=== PATIENT | female | born 1960 | race Caucasian/White ===

== ENCOUNTER 2017-12-14 16:25 | Inpatient (IN) | payer OTHER ==
[~2017-12-14] VITALS: Ht 162.6 cm; Wt 64.0 kg
[2017-12-14] MEDS ORDERED: METHYLPREDNISOLONE SOD SUCC 125 MG/2ML VIAL IV ONE (17:00)
[2017-12-14] MEDS ORDERED: ALBUTEROL/IPRATROPIUM 3 ML NEB NEB ONE (17:00)
[2017-12-14] MEDS ORDERED: IPRATROPIUM BROMIDE 0.02% 2.5 ML NEB NEB ONE (17:00)
[2017-12-14] MEDS ORDERED: LORAZEPAM INJ 2 MG/ML VIAL IV ONE (17:00)
[2017-12-14] MEDS ORDERED: ALBUTEROL SULF 0.083% NEB SOLN 3 ML NEB ONE (17:09)
[2017-12-14 17:10] LABS: BASOPHILS # (AUTO) 0.1 (0.0-0.1); BASOPHILS % 1.3 % (0.0-1.0); EOSINOPHILS # (AUTO) 0.4 (0.0-0.4); EOSINOPHILS % 6.9 % (0.0-6.0); HEMATOCRIT 34.8 % (34.2-44.1); LYMPHOCYTES # (AUTO) 2.4 (1.0-3.2); LYMPHOCYTES % 38.1 % (18.0-39.1); MEAN CORPUSCULAR HEMOGLOBIN 28.9 pg (28-32); MEAN CORPUSCULAR HGB CONC 31.6 g/dL (31-35); MEAN CORPUSCULAR VOLUME 91.3 fL (81-99); MONOCYTES # (AUTO) 0.7 (0.2-0.8); MONOCYTES % 11.9 % (4.4-11.3); NEUTROPHILS # (AUTO) 2.6 (2.1-6.9); NEUTROPHILS % 41.5 % (38.7-80.0); PLATELET COUNT 311 x10e3/uL (140-360); RED BLOOD COUNT 3.81 x10e6/uL (3.6-5.1); RED CELL DISTRIBUTION WIDTH 13.7 % (11.7-14.4)
[2017-12-14 17:17] LABS: INR 0.82; PROTHROMBIN TIME 11.7 seconds (11.9-14.5)
[2017-12-14 17:18] LABS: PARTIAL THROMBOPLASTIN TIME 26.3 seconds (23.8-35.5)
[2017-12-14 17:21] LABS: ABG HCO3 30 mmol/L (23-28); ABG PCO2 51 mmHg (41-51); ABG PH 7.38 (7.31-7.41); ABG PO2 103 mmHg (80-105)
[2017-12-14 17:25] LABS: ALANINE AMINOTRANSFERASE 8 IU/L (0-55); ALBUMIN 3.5 g/dL (3.5-5.0); ALBUMIN/GLOBULIN RATIO 1.2 (0.8-2.0); ALKALINE PHOSPHATASE 51 IU/L (40-150); ANION GAP 10.6 mmol/L (8-16); BLOOD UREA NITROGEN 14 mg/dL (7-26); BUN/CREATININE RATIO 20 (6-25); CALCIUM 9.1 mg/dL (8.4-10.2); CARBON DIOXIDE 28 mmol/L (22-29); CHLORIDE 106 mmol/L (98-107); CREATINE KINASE 46 IU/L (29-168); CREATININE, SERUM 0.69 mg/dL (0.57-1.11); EST GLOMERULAR FILTRATION RATE > 60 ML/MIN (60-); GLUCOSE 121 mg/dL (74-118); POTASSIUM 3.6 mmol/L (3.5-5.1); SODIUM 141 mmol/L (136-145)
[2017-12-14] MEDS ORDERED: SODIUM CHLORIDE FLUSH 10 ML SYR INJ PRN (17:30)
--- NOTE | 2017-12-14 18:53 | Diagnostic Imaging Report ---
PROCEDURE: A single AP view of the chest. COMPARISON: None. INDICATIONS: COPD AND SHORTNESS OF BREATH FINDINGS: Lines/tubes: None. Lungs: The lungs are hyperinflated. Minimal left lower lung field haziness. There is no evidence of pneumonia or pulmonary edema. Irregular density overlying left mid to lower lung field may represent calcified pleural plaque or calcified granuloma or soft tissue calcification. Pleura: There is no pleural effusion or pneumothorax. Heart and mediastinum: The heart and the mediastinum are unremarkable. Bones: No acute bony abnormality. IMPRESSION: Minimal left basilar hazy opacification, likely due to overlying soft tissue attenuation. Developing pneumonia cannot be entirely excluded in the appropriate clinical setting. Hyperinflated lungs with suggestion of COPD. Dictated by: Escobar Ferrara M.D. on 12/14/2017 at 19:02 Electronically approved by: Escobar Ferrara M.D. on 12/14/2017 at 19:02
[2017-12-14] MEDS: IPRATROPIUM BROMIDE 0.02% 2.5 ML NEB NEB SCH ×2 (19:00→23:30)
[2017-12-14] MEDS: ALBUTEROL SULF 0.083% NEB SOLN 3 ML NEB NEB SCH ×2 (19:00→23:30)
[2017-12-14] MEDS: AZITHROMYCIN 500MG/NS 250 ML 250 ML IV SCH (20:03)
[2017-12-15] MEDS: LORAZEPAM 1 MG TAB PO PRN (01:58)
[2017-12-15] MEDS: METHYLPREDNISOLONE SOD SUCC 40 MG/ML VIAL IV SCH ×5 (01:59→18:33)
[2017-12-15 04:45] LABS: BASOPHILS % 0.1 % (0.0-1.0); HEMATOCRIT 35.7 % (34.2-44.1); HEMOGLOBIN 11.1 g/dL (12.0-16.0); LYMPHOCYTES # (AUTO) 0.8 (1.0-3.2); MEAN CORPUSCULAR HEMOGLOBIN 28.6 pg (28-32); MEAN CORPUSCULAR HGB CONC 31.1 g/dL (31-35); MONOCYTES # (AUTO) 0.1 (0.2-0.8); MONOCYTES % 0.9 % (4.4-11.3); NEUTROPHILS % 87.6 % (38.7-80.0); PLATELET COUNT 314 x10e3/uL (140-360); RED BLOOD COUNT 3.88 x10e6/uL (3.6-5.1); RED CELL DISTRIBUTION WIDTH 13.4 % (11.7-14.4)
[2017-12-15 05:04] LABS: ANION GAP 14.2 mmol/L (8-16); BLOOD UREA NITROGEN 13 mg/dL (7-26); BUN/CREATININE RATIO 21 (6-25); CALCIUM 9.1 mg/dL (8.4-10.2); CARBON DIOXIDE 25 mmol/L (22-29); CHLORIDE 107 mmol/L (98-107); CREATINE KINASE 42 IU/L (29-168); CREATININE, SERUM 0.63 mg/dL (0.57-1.11); EST GLOMERULAR FILTRATION RATE > 60 ML/MIN (60-); GLUCOSE 138 mg/dL (74-118); POTASSIUM 4.2 mmol/L (3.5-5.1); SODIUM 142 mmol/L (136-145)
[2017-12-15] MEDS: ALBUTEROL SULF 0.083% NEB SOLN 3 ML NEB NEB SCH (05:10)
[2017-12-15] MEDS: IPRATROPIUM BROMIDE 0.02% 2.5 ML NEB NEB SCH (05:10)
[2017-12-15] MEDS ORDERED: SODIUM CHLORIDE 0.9% 1000ML 1,000 ML IV SCH (08:15)
[2017-12-15] MEDS ORDERED: CEFTRIAXONE SOD 1 GM/NS 50 ML 50 ML IV SCH (08:15)
[2017-12-15] MEDS: ALBUTEROL/IPRATROPIUM 3 ML NEB NEB SCH ×4 (09:25→21:55)
[2017-12-15] MEDS: METOPROLOL TARTRATE 25 MG TAB PO SCH ×2 (10:15→22:12)
[2017-12-15] MEDS: AMLODIPINE BESYLATE 10 MG TAB PO SCH (10:15)
[2017-12-15] MEDS: GUAIFENESIN 600MG/DEXTROMETHORPHAN 30MG TABSR PO SCH ×3 (10:15→18:33)
[2017-12-15] MEDS: CEFTRIAXONE SOD 1 GM VIAL IV SCH ×2 (10:20→22:12)
[2017-12-15 12:08] VITALS: BP 115/73
[2017-12-15 12:29] VITALS: BP 137/77
[2017-12-15 12:43] LABS: CREATINE KINASE MB 1.1 ng/mL (0.00-5.00)
[2017-12-15] MEDS: TRAMADOL HCL 50 MG TAB PO PRN (14:33)
[2017-12-15] MEDS: HYDROCODONE/APAP 5MG-325MG TAB PO PRN (16:05)
[2017-12-15 16:38] VITALS: BP 119/69
[2017-12-15] MEDS: FLUTICASONE PROPIONATE NASAL SPRAY NS SCH (17:01)
[2017-12-15] MEDS: AZITHROMYCIN 500MG/NS 250 ML 250 ML IV SCH (18:33)
--- NOTE | 2017-12-15 18:34 | History and Physical ---
PRIMARY CARE PROVIDER: Dr. Fernando Anna. CHIEF COMPLAINT: Shortness of breath. HISTORY OF PRESENT ILLNESS: Ms. Erickson is a 57-year-old lady with COPD who presents with 2 to 3 days of a hacking nonproductive cough, worsening shortness of breath and wheezing with worsening dyspnea with exertion. REVIEW OF SYSTEMS: She denies fever, chills or weight loss. She denies sinus congestion or sore throat. She denies chest pain or palpitation. She has shortness of breath, nonproductive cough and wheezing as noted. She denies abdominal pain, nausea, vomiting or diarrhea or melena. She denies dysuria or flank pain. She denies rash or pruritus. She denies joint pain or swelling. She denies bleeding or bruising. She denies headache, vertigo or loss of consciousness. She denies depression, agitation, homicidal or suicidal ideation. PAST MEDICAL HISTORY: Significant for hypertension, COPD and hyperlipidemia. She denies any history of heart disease. MEDICATIONS: Metoprolol lisinopril/hydrochlorothiazide and Lipitor along with Breo, Spiriva and nebulized albuterol Atrovent, DuoNeb by nebulizer at home and she uses a home O2. PAST SURGICAL HISTORY: She denies any surgical history. SOCIAL HISTORY: She quit smoking 8 years ago and she has a stated allergy to morphine and some unknown antibiotic. FAMILY HISTORY: Significant for hypertension. SOCIAL HISTORY: Patient is . Lithuanian is her primary language. She does not smoke, drink or use illegal drugs and she is generally independently functioning. PHYSICAL EXAM: PSYCHIATRIC: She is alert and oriented times 3 with normal mood and affect. CONSTITUTIONAL: She has a normal body habitus. Is in no acute distress. VITAL SIGNS: Blood pressure 119/69. Pulse 97 and regular. Respiratory rate 18. O2 sat 96%. Temperature 96.1. Her initial blood pressure on presentation 187/91 and her initial heart rate was 104. HEENT: Head is atraumatic. Eyes are anicteric with clear conjunctivae. Ears and nares are without erythema or discharge. Oropharynx is clear. NECK: Is supple with no mass or thyromegaly. LYMPHATIC SYSTEM: She has no palpable cervical, axillary or inguinal adenopathy. CARDIOVASCULAR: Her heart has a regular rate and rhythm without murmur or extra heart sounds. She has no peripheral edema. She has no carotid bruit. She has weak dorsal pedal pulses. RESPIRATORY: Lungs reveal markedly diminished breath sounds with expiratory wheezing and nonproductive cough and some mild to moderate respiratory distress. The patient is on BiPAP initially. GASTROINTESTINAL: Abdomen is soft without organomegaly, masses or tenderness. Normal bowel sounds present. CUTANEOUS: Her skin is warm and dry to touch with no rash or skin breakdown. MUSCULOSKELETAL: Joints are in normal alignment without erythema or swelling. No calf tenderness. NEUROLOGIC: Exam is nonfocal with intact cranial nerves and no motor or sensory deficits. DIAGNOSTIC STUDIES: Chest x-ray shows COPD changes but no acute infiltrate. Flu screen is negative. ABG shows a pH of 7.38, a PCO2 of 51, a PO2 of 103 and that is on BiPAP with 50% FIO2. Her troponin 0.012, 0.009, 0.002. Her BNP 14.8. Chemistry shows normal electrolytes. CO2 28. Creatinine 0.69. BUN 14 for a normal GFR. Glucose 121. Calcium 9.1. Transaminases, bilirubin and alkaline phos are normal. CBC shows a white count of 6.24 with 42% neutrophils, 38% lymphocytes, 12% monocytes. Hemoglobin 11.0, hematocrit 34.8 and platelet count 311,000. IMPRESSION AND PLAN: 1. Acute on chronic respiratory failure. Patient requiring BiPAP initially and is O2 dependent at home. 2. Acute exacerbation of chronic obstructive pulmonary disease. The patient will get oxygen and aggressive nebulizer treatments, IV Solu-Medrol, IV Zithromax and Rocephin and Mucinex for expectoration. 3. Hypertension. Patient will be continued on metoprolol. She has been started on Norvasc. She did not know what she was taking on review of her office records. She was on lisinopril/ hydrochlorothiazide in the past. Her blood pressure appears well controlled on the Norvasc. Will leave her on that for now. 4. For prophylaxis the patient will be using SCDs for DVT prophylaxis and Protonix for GI prophylaxis. Job#: [id number]
[2017-12-15] MEDS: ONDANSETRON HCL INJ 2 MG/ML VIAL IV PRN (19:36)
[2017-12-15 20:04] VITALS: BP 110/62
[2017-12-15 21:53] VITALS: BP 110/62
[2017-12-15 23:43] VITALS: BP 90/54
[2017-12-16] MEDS: METHYLPREDNISOLONE SOD SUCC 40 MG/ML VIAL IV SCH ×4 (00:09→17:14)
[2017-12-16] MEDS: GUAIFENESIN 600MG/DEXTROMETHORPHAN 30MG TABSR PO SCH ×4 (00:09→17:14)
[2017-12-16] MEDS: TRAMADOL HCL 50 MG TAB PO PRN (03:47)
[2017-12-16 04:19] VITALS: BP 124/74
[2017-12-16] MEDS: HYDROCODONE/APAP 5MG-325MG TAB PO PRN ×2 (06:17→12:58)
[2017-12-16 06:27] LABS: BASOPHILS % 0.2 % (0.0-1.0); HEMATOCRIT 29.9 % (34.2-44.1); HEMOGLOBIN 9.5 g/dL (12.0-16.0); LYMPHOCYTES # (AUTO) 0.9 (1.0-3.2); LYMPHOCYTES % 8.2 % (18.0-39.1); MEAN CORPUSCULAR HGB CONC 31.8 g/dL (31-35); MEAN CORPUSCULAR VOLUME 91.2 fL (81-99); MONOCYTES # (AUTO) 0.3 (0.2-0.8); MONOCYTES % 2.3 % (4.4-11.3); NEUTROPHILS # (AUTO) 10.1 (2.1-6.9); NEUTROPHILS % 88.5 % (38.7-80.0); PLATELET COUNT 278 x10e3/uL (140-360); RED BLOOD COUNT 3.28 x10e6/uL (3.6-5.1); RED CELL DISTRIBUTION WIDTH 13.5 % (11.7-14.4)
[2017-12-16 06:50] LABS: ANION GAP 7.8 mmol/L (8-16); BLOOD UREA NITROGEN 19 mg/dL (7-26); BUN/CREATININE RATIO 29 (6-25); CALCIUM 8.8 mg/dL (8.4-10.2); CARBON DIOXIDE 28 mmol/L (22-29); CHLORIDE 104 mmol/L (98-107); CREATININE, SERUM 0.66 mg/dL (0.57-1.11); EST GLOMERULAR FILTRATION RATE > 60 ML/MIN (60-); GLUCOSE 131 mg/dL (74-118); MAGNESIUM 1.8 MG/DL (1.3-2.1); POTASSIUM 3.8 mmol/L (3.5-5.1); SODIUM 136 mmol/L (136-145)
[2017-12-16 07:05] LABS: THYROID STIMULATING HORMONE 0.122 uIU/mL (0.350-4.940)
[2017-12-16 07:10] VITALS: BP 135/74
[2017-12-16] MEDS: PANTOPRAZOLE SOD 40 MG TABEC PO SCH (07:37)
[2017-12-16] MEDS: ALBUTEROL/IPRATROPIUM 3 ML NEB NEB SCH ×4 (08:30→23:35)
[2017-12-16] MEDS: METOPROLOL TARTRATE 25 MG TAB PO SCH ×2 (08:37→20:52)
[2017-12-16] MEDS: CEFTRIAXONE SOD 1 GM VIAL IV SCH ×2 (08:37→20:51)
[2017-12-16] MEDS: AMLODIPINE BESYLATE 10 MG TAB PO SCH (08:37)
[2017-12-16] MEDS: FLUTICASONE PROPIONATE NASAL SPRAY NS SCH ×2 (09:30→16:17)
[2017-12-16 11:17] VITALS: BP 114/60
[2017-12-16 15:47] VITALS: BP 112/62
[2017-12-16] MEDS: AZITHROMYCIN 500MG/NS 250 ML 250 ML IV SCH (17:14)
[2017-12-16 20:00] VITALS: BP 111/66
[2017-12-16] MEDS: LORAZEPAM 1 MG TAB PO PRN (20:36)
[2017-12-17] VITALS: BP 102/65
[2017-12-17] MEDS: METHYLPREDNISOLONE SOD SUCC 40 MG/ML VIAL IV SCH ×4 (00:08→20:23)
[2017-12-17] MEDS: GUAIFENESIN 600MG/DEXTROMETHORPHAN 30MG TABSR PO SCH ×4 (00:08→16:43)
[2017-12-17] MEDS: ALBUTEROL/IPRATROPIUM 3 ML NEB NEB SCH ×6 (03:15→23:17)
[2017-12-17 04:00] VITALS: BP 109/67
[2017-12-17] MEDS: HYDROCODONE/APAP 5MG-325MG TAB PO PRN ×2 (06:24→15:55)
[2017-12-17 06:27] LABS: BASOPHILS % 0.1 % (0.0-1.0); HEMATOCRIT 31.9 % (34.2-44.1); HEMOGLOBIN 10.1 g/dL (12.0-16.0); LYMPHOCYTES % 5.9 % (18.0-39.1); MEAN CORPUSCULAR HEMOGLOBIN 29.3 pg (28-32); MEAN CORPUSCULAR HGB CONC 31.7 g/dL (31-35); MEAN CORPUSCULAR VOLUME 92.5 fL (81-99); MONOCYTES # (AUTO) 0.4 (0.2-0.8); MONOCYTES % 2.2 % (4.4-11.3); NEUTROPHILS # (AUTO) 15.1 (2.1-6.9); NEUTROPHILS % 90.7 % (38.7-80.0); PLATELET COUNT 306 x10e3/uL (140-360); RED BLOOD COUNT 3.45 x10e6/uL (3.6-5.1); RED CELL DISTRIBUTION WIDTH 13.7 % (11.7-14.4)
[2017-12-17 06:44] LABS: ANION GAP 14.8 mmol/L (8-16); BLOOD UREA NITROGEN 21 mg/dL (7-26); BUN/CREATININE RATIO 36 (6-25); CARBON DIOXIDE 27 mmol/L (22-29); CHLORIDE 107 mmol/L (98-107); CREATININE, SERUM 0.59 mg/dL (0.57-1.11); EST GLOMERULAR FILTRATION RATE > 60 ML/MIN (60-); GLUCOSE 131 mg/dL (74-118); POTASSIUM 3.8 mmol/L (3.5-5.1); SODIUM 145 mmol/L (136-145)
[2017-12-17] MEDS: PANTOPRAZOLE SOD 40 MG TABEC PO SCH (07:45)
[2017-12-17] MEDS: LORAZEPAM 1 MG TAB PO PRN (07:45)
[2017-12-17 08:00] VITALS: BP 162/94
[2017-12-17 09:12] VITALS: BP 162/94
[2017-12-17] MEDS: CEFTRIAXONE SOD 1 GM VIAL IV SCH ×2 (09:30→20:22)
[2017-12-17] MEDS: METOPROLOL TARTRATE 25 MG TAB PO SCH ×2 (09:30→20:16)
[2017-12-17] MEDS: AMLODIPINE BESYLATE 10 MG TAB PO SCH (09:31)
[2017-12-17] MEDS: FLUTICASONE PROPIONATE NASAL SPRAY NS SCH ×2 (10:26→16:43)
[2017-12-17 16:00] VITALS: BP 118/72
[2017-12-17] MEDS: AZITHROMYCIN 500MG/NS 250 ML 250 ML IV SCH (16:43)
[2017-12-17] MEDS: DOCUSATE SODIUM 100 MG CAP PO SCH (16:43)
[2017-12-17] MEDS: ONDANSETRON HCL INJ 2 MG/ML VIAL IV PRN (17:14)
[2017-12-17] MEDS: LORAZEPAM INJ 2 MG/ML VIAL IV PRN (19:45)
[2017-12-17 20:10] VITALS: BP 108/70
[2017-12-17] MEDS ORDERED: METOPROLOL TARTRATE 25 MG TAB PO SCH ×2 (21:00)
[2017-12-18 00:05] VITALS: BP 107/63
[2017-12-18] MEDS: GUAIFENESIN 600MG/DEXTROMETHORPHAN 30MG TABSR PO SCH ×5 (00:05→23:46)
[2017-12-18] MEDS: HYDROCODONE/APAP 5MG-325MG TAB PO PRN ×3 (02:21→23:43)
[2017-12-18] MEDS: ALBUTEROL/IPRATROPIUM 3 ML NEB NEB SCH ×6 (03:08→23:27)
[2017-12-18 04:30] VITALS: BP 117/75
[2017-12-18] MEDS: PANTOPRAZOLE SOD 40 MG TABEC PO SCH (06:32)
[2017-12-18 06:48] LABS: BASOPHILS % 0.1 % (0.0-1.0); HEMOGLOBIN 9.7 g/dL (12.0-16.0); LYMPHOCYTES # (AUTO) 0.9 (1.0-3.2); LYMPHOCYTES % 6.7 % (18.0-39.1); MEAN CORPUSCULAR HGB CONC 31.3 g/dL (31-35); MEAN CORPUSCULAR VOLUME 92.5 fL (81-99); MONOCYTES # (AUTO) 0.6 (0.2-0.8); MONOCYTES % 4.5 % (4.4-11.3); NEUTROPHILS # (AUTO) 12.1 (2.1-6.9); NEUTROPHILS % 87.8 % (38.7-80.0); PLATELET COUNT 279 x10e3/uL (140-360); RED BLOOD COUNT 3.35 x10e6/uL (3.6-5.1); RED CELL DISTRIBUTION WIDTH 13.6 % (11.7-14.4)
[2017-12-18 07:18] LABS: ANION GAP 11.9 mmol/L (8-16); BLOOD UREA NITROGEN 19 mg/dL (7-26); BUN/CREATININE RATIO 33 (6-25); CARBON DIOXIDE 29 mmol/L (22-29); CHLORIDE 108 mmol/L (98-107); CREATININE, SERUM 0.57 mg/dL (0.57-1.11); EST GLOMERULAR FILTRATION RATE > 60 ML/MIN (60-); GLUCOSE 132 mg/dL (74-118); POTASSIUM 3.9 mmol/L (3.5-5.1); SODIUM 145 mmol/L (136-145)
[2017-12-18 08:00] VITALS: BP 102/65
[2017-12-18] MEDS: LORAZEPAM INJ 2 MG/ML VIAL IV PRN ×3 (08:30→21:37)
[2017-12-18] MEDS: CEFTRIAXONE SOD 1 GM VIAL IV SCH ×2 (09:00→20:58)
[2017-12-18] MEDS: METOPROLOL TARTRATE 25 MG TAB PO SCH ×2 (09:00→20:59)
[2017-12-18] MEDS: FLUTICASONE PROPIONATE NASAL SPRAY NS SCH ×2 (09:00→17:00)
[2017-12-18] MEDS: METHYLPREDNISOLONE SOD SUCC 40 MG/ML VIAL IV SCH ×2 (09:00→20:59)
[2017-12-18] MEDS: DOCUSATE SODIUM 100 MG CAP PO SCH ×2 (09:00→17:00)
[2017-12-18 12:00] VITALS: BP 155/86
[2017-12-18] MEDS: AMLODIPINE BESYLATE 10 MG TAB PO SCH (12:08)
[2017-12-18] MEDS: AZITHROMYCIN 500MG/NS 250 ML 250 ML IV SCH (18:07)
[2017-12-18] MEDS: ONDANSETRON HCL INJ 2 MG/ML VIAL IV PRN (18:40)
[2017-12-18 20:04] VITALS: BP 112/72
[2017-12-19 00:02] VITALS: BP 112/72
[2017-12-19] MEDS: LORAZEPAM INJ 2 MG/ML VIAL IV PRN ×2 (03:07→08:45)
[2017-12-19] MEDS: ALBUTEROL/IPRATROPIUM 3 ML NEB NEB SCH ×6 (03:57→22:40)
[2017-12-19 04:00] VITALS: BP 116/65
[2017-12-19] MEDS: GUAIFENESIN 600MG/DEXTROMETHORPHAN 30MG TABSR PO SCH ×3 (05:27→17:09)
[2017-12-19 08:00] VITALS: BP 126/73
[2017-12-19] MEDS: FLUTICASONE PROPIONATE NASAL SPRAY NS SCH ×2 (08:30→16:36)
[2017-12-19] MEDS: METHYLPREDNISOLONE SOD SUCC 40 MG/ML VIAL IV SCH ×2 (08:30→20:51)
[2017-12-19] MEDS: METOPROLOL TARTRATE 25 MG TAB PO SCH ×2 (08:30→20:52)
[2017-12-19] MEDS: AMLODIPINE BESYLATE 10 MG TAB PO SCH (08:30)
[2017-12-19] MEDS: PANTOPRAZOLE SOD 40 MG TABEC PO SCH (08:30)
[2017-12-19] MEDS: CEFTRIAXONE SOD 1 GM VIAL IV SCH (08:30)
[2017-12-19] MEDS: DOCUSATE SODIUM 100 MG CAP PO SCH ×2 (08:30→16:36)
[2017-12-19] MEDS: HYDROCODONE/APAP 5MG-325MG TAB PO PRN ×2 (11:21→19:00)
[2017-12-19 12:00] VITALS: BP 139/80
[2017-12-19 16:00] VITALS: BP 115/59
[2017-12-19] MEDS: LORAZEPAM 0.5 MG TAB PO PRN (16:06)
[2017-12-19] MEDS: DOXYCYCLINE HYCLATE TABLET 100 MG TAB PO SCH (16:36)
--- NOTE | 2017-12-19 16:37 | Consultation ---
DATE OF CONSULTATION: PSYCHIATRIC CONSULT REASON FOR CONSULTATION: Treatment and evaluation of the patient's mood and anxiety. HISTORY OF PRESENT ILLNESS: Patient is a 57-year-old female who was admitted to [facility] because of COPD exacerbation. Psychiatric consult is called to evaluate the patient's mood and anxiety. Upon evaluation today, the patient is found to be alert, awake, and oriented to situation. She is isolated and withdrawn. She has psychomotor retardation. She states that she has been feeling increasingly depressed and anxious because of her ongoing medical health issues. She is stressed because she is not able to do things that she used to do before. She sometimes feels hopeless and helpless. She is not able to sleep and eat very well. She denies any hallucinations and/or suicidal ideation. PAST PSYCHIATRIC HISTORY: The patient has been treated by a psychiatrist in the past when she lost her son. She has attempted suicide at least once in the past. She denies drinking alcohol and denies abusing any recreational drugs. FAMILY HISTORY: Patient denies any family history of psychiatric illness. SOCIAL HISTORY: Patient states that she lives with her boyfriend. CURRENT LABS: WBC 13.81, hemoglobin 9.7, hematocrit 31, and platelets 279,000. Sodium 145, potassium 3.9, chloride 108, carbon dioxide 29, BUN 19, creatinine 0.5. TSH 0.12. CURRENT MEDICATIONS 1. Amlodipine. 2. Colace. 3. Doxycycline. 4. P.r.n. [place]. 5. P.r.n. Ativan. 6. Protonix. 7. P.r.n. tramadol. MENTAL STATUS EXAMINATION GENERAL: The patient is a middle-aged female who appears older than her stated age. She is alert, awake and oriented to place, person and situation. Her mood is depressed and dysphoric with appropriate affect. She denies any suicidal or homicidal ideation at present. She denies any abnormal perceptions at present. No delusions are elicited. Her thought process is goal directed. She is alert, awake and oriented to place, person and situation. Insight and judgment are fair. IMPRESSION 1. Revere I: Major depressive disorder, recurrent and moderate 2. Revere II: Deferred. 3. Revere III: As per medical history. 4. Revere IV: Modified is 45. RECOMMENDATIONS: Based on this clinical assessment, the patient appears to be depressed and anxious. She is not sleeping and eating. Following recommendations for now: 1. Add Remeron 15 mg p.o. at bedtime. 2. Add Ativan 0.5 mg p.o. q.6 h. p.r.n. for anxiety. 3. Supportive therapy. 4. We will continue to follow this patient during her inpatient stay for management of her psychiatric symptoms. Thank you very much for this consult. Job#: [id number] ALEX
[2017-12-19 20:00] VITALS: BP 117/69
[2017-12-19] MEDS: MIRTAZAPINE 15 MG TAB PO SCH (20:53)
[2017-12-20] VITALS: BP 135/70
[2017-12-20] MEDS: GUAIFENESIN 600MG/DEXTROMETHORPHAN 30MG TABSR PO SCH ×5 (00:11→23:51)
[2017-12-20] MEDS: ALBUTEROL/IPRATROPIUM 3 ML NEB NEB SCH ×6 (02:30→23:52)
[2017-12-20 04:00] VITALS: BP 130/61
[2017-12-20] MEDS: PANTOPRAZOLE SOD 40 MG TABEC PO SCH (05:37)
[2017-12-20 06:09] LABS: BASOPHILS % 0.4 % (0.0-1.0); HEMATOCRIT 33.7 % (34.2-44.1); HEMOGLOBIN 10.9 g/dL (12.0-16.0); LYMPHOCYTES # (AUTO) 1.6 (1.0-3.2); MEAN CORPUSCULAR HEMOGLOBIN 29.1 pg (28-32); MEAN CORPUSCULAR HGB CONC 32.3 g/dL (31-35); MEAN CORPUSCULAR VOLUME 90.1 fL (81-99); MONOCYTES # (AUTO) 0.8 (0.2-0.8); NEUTROPHILS # (AUTO) 8.6 (2.1-6.9); NEUTROPHILS % 76.9 % (38.7-80.0); PLATELET COUNT 260 x10e3/uL (140-360); RED BLOOD COUNT 3.74 x10e6/uL (3.6-5.1)
[2017-12-20 06:25] LABS: BLOOD UREA NITROGEN 18 mg/dL (7-26); BUN/CREATININE RATIO 32 (6-25); CALCIUM 8.9 mg/dL (8.4-10.2); CARBON DIOXIDE 29 mmol/L (22-29); CHLORIDE 106 mmol/L (98-107); CREATININE, SERUM 0.57 mg/dL (0.57-1.11); EST GLOMERULAR FILTRATION RATE > 60 ML/MIN (60-); GLUCOSE 111 mg/dL (74-118); SODIUM 141 mmol/L (136-145)
[2017-12-20 08:00] VITALS: BP 162/81
[2017-12-20] MEDS: HYDROCODONE/APAP 5MG-325MG TAB PO PRN ×2 (08:14→14:05)
--- NOTE | 2017-12-20 08:19 | Diagnostic Imaging Report ---
EXAMINATION: CHEST SINGLE (PORTABLE) INDICATION: \S\SOB \[id number] \S\0730 COMPARISON: 12/14/2017 FINDINGS: AP view TUBES and LINES: None. LUNGS: Lungs are well inflated. Lungs are clear. There is no evidence of pneumonia or pulmonary edema. Unchanged left midlung hyperdensity. PLEURA: No pleural effusion or pneumothorax. HEART AND MEDIASTINUM: The cardiomediastinal silhouette is unremarkable. BONES AND SOFT TISSUES: No acute osseous lesion. Soft tissues are unremarkable. UPPER ABDOMEN: No free air under the diaphragm. IMPRESSION: No acute thoracic abnormality. Unchanged left midlung hyperdensity which could be calcified pleural plaque, soft tissue calcification, or calcified granuloma. Signed by: Dr. Escobar Ferrara MD on 12/20/2017 8:16 AM
[2017-12-20] MEDS: FLUTICASONE PROPIONATE NASAL SPRAY NS SCH ×2 (09:00→17:01)
[2017-12-20] MEDS: DOXYCYCLINE HYCLATE TABLET 100 MG TAB PO SCH ×2 (09:00→17:01)
[2017-12-20] MEDS: METOPROLOL TARTRATE 25 MG TAB PO SCH ×2 (09:00→21:35)
[2017-12-20] MEDS: DOCUSATE SODIUM 100 MG CAP PO SCH ×2 (09:00→17:00)
[2017-12-20] MEDS: AMLODIPINE BESYLATE 10 MG TAB PO SCH (09:00)
[2017-12-20] MEDS: METHYLPREDNISOLONE SOD SUCC 40 MG/ML VIAL IV SCH ×2 (09:00→19:52)
[2017-12-20 12:00] VITALS: BP 150/81
[2017-12-20 16:00] VITALS: BP 122/66
[2017-12-20] MEDS: ONDANSETRON HCL INJ 2 MG/ML VIAL IV PRN (19:52)
[2017-12-20] MEDS: MIRTAZAPINE 15 MG TAB PO SCH (19:52)
[2017-12-20 20:00] VITALS: BP 116/62
[2017-12-21] VITALS: BP 116/59
[2017-12-21] MEDS: HYDROCODONE/APAP 5MG-325MG TAB PO PRN (03:00)
[2017-12-21] MEDS: ALBUTEROL/IPRATROPIUM 3 ML NEB NEB SCH ×3 (03:48→10:50)
[2017-12-21 04:00] VITALS: BP 128/68
[2017-12-21] MEDS: GUAIFENESIN 600MG/DEXTROMETHORPHAN 30MG TABSR PO SCH ×2 (05:57→12:00)
[2017-12-21] MEDS: PANTOPRAZOLE SOD 40 MG TABEC PO SCH (05:57)
[2017-12-21] MEDS: ONDANSETRON HCL INJ 2 MG/ML VIAL IV PRN (06:19)
[2017-12-21 08:00] VITALS: BP 128/68
[2017-12-21 08:10] VITALS: BP 154/77
[2017-12-21] MEDS: AMLODIPINE BESYLATE 10 MG TAB PO SCH (09:00)
[2017-12-21] MEDS: DOXYCYCLINE HYCLATE TABLET 100 MG TAB PO SCH (09:00)
[2017-12-21] MEDS: FLUTICASONE PROPIONATE NASAL SPRAY NS SCH (09:00)
[2017-12-21] MEDS: METOPROLOL TARTRATE 25 MG TAB PO SCH (09:00)
[2017-12-21] MEDS: METHYLPREDNISOLONE SOD SUCC 40 MG/ML VIAL IV SCH (09:00)
[2017-12-21] MEDS: DOCUSATE SODIUM 100 MG CAP PO SCH (09:00)
[2017-12-21] MEDS: LORAZEPAM 0.5 MG TAB PO PRN (09:08)
[2017-12-21] MEDS ORDERED: DOXYCYCLINE HY100 MG PO (11:36)
[2017-12-21] MEDS ORDERED: NORVASC10 MG PO (11:36)
[2017-12-21] MEDS ORDERED: PROTONIX40 MG/ML PO (11:36)
[2017-12-21] MEDS ORDERED: COLACE100 M1 PO (11:36)
[2017-12-21] MEDS ORDERED: Fluticasone Propionate NS (11:36)
[2017-12-21] MEDS ORDERED: MUCINEX DM ER1 EACH PO (11:36)
[2017-12-21] MEDS ORDERED: Albuterol/Ipratropium Nebulize NEB (11:36)
[2017-12-21] MEDS ORDERED: LOPRESSOR25 MG PO (11:36)
[2017-12-21] MEDS ORDERED: MIRTAZAPINE15 MG PO (11:36)
[2017-12-21] MEDS ORDERED: PREDNISONE20 MG PO (11:36)
[2017-12-21 11:57] VITALS: BP 135/72
--- NOTE | 2017-12-21 12:29 | Discharge Summary ---
MOULDER OPERATOR: Dr. Soco Antoine This is a 57-year-old female who comes in through the emergency room complaining of shortness of breath. She has a longstanding history of COPD. The patient is well known to my practice. The patient had 2 to 3 days of a hacking, nonproductive cough, worsening shortness of breath and wheezing, and dyspnea on exertion that prompted her to come to the emergency room. On admission, the patient had a chest x-ray that showed COPD, but no acute infiltrates. Flu screen was negative. ABGs were done. The pH was 7.38, pCO2 51, pO2 103. The patient's BiPAP was 50% FiO2. Troponin was 0.012, followed by 0.009 and 0.002. Her BNP is 14.8. The patient was treated with nebulized treatment along with IV steroids. The patient responded well in conjunction with IV antibiotics. The patient will proceed to be discharged today. The patient states she feels better and is back at her baseline. The patient was encouraged to follow up with Dr. Anna's office. DISCHARGE DIAGNOSES 1. [id number] respiratory failure. 2. Acute exacerbation of chronic obstructive pulmonary disease. Will continue on oral steroids. Will continue on p.o. antibiotics. 3. Hypertension. Her blood pressure medications were renewed and prescription given. Dictated by: Kwesi Snow NP MACIE ANNA MD Job#: [id number]
== END 2017-12-21 15:04 | disposition home or self-care (01) | DRG 189 ==
LOC: ER 16:25 → ERHOLD 17:47 → IMCU 12-15 11:18 → MED/SURG2 12-16 18:33 → OBSVTOIN 12-16 21:44
PROVIDERS: ADMIT Internal Medicine; ATTEND Internal Medicine
PROC: 02HV33Z Insertion of Infusion Device into Superior Vena Cava, Percutaneous Approach (ICD-10-PCS; principal; 2017-12-18)
DX: J96.20 Acute and chronic respiratory failure, unspecified whether with hypoxia or hypercapnia (principal); F33.1 Major depressive disorder, recurrent, moderate; I10 Essential (primary) hypertension; J44.1 Chronic obstructive pulmonary disease with (acute) exacerbation; F41.9 Anxiety disorder, unspecified; K21.9 Gastro-esophageal reflux disease without esophagitis; G47.00 Insomnia, unspecified; Z87.891 Personal history of nicotine dependence; G89.29 Other chronic pain; M25.562 Pain in left knee; M25.561 Pain in right knee; D72.829 Elevated white blood cell count, unspecified; T38.0X5A Adverse effect of glucocorticoids and synthetic analogues, initial encounter
CPT/HCPCS: 36415; 71045; 74470; 80048; 80053; 82550; 82553; 82805; 83735; 83880; 84443; 84484; 85025; 85610; 85730; 87040; 87400; 93005; 94640; 96360; 96365; 99284; G0378; J0456; J0696; J2060; J2405; J2920; J2930; J7030

== ENCOUNTER 2018-01-26 11:54 | Observation (INO) | payer OTHER ==
[~2018-01-26] VITALS: Ht 162.6 cm; Wt 64.0 kg
[~2018-01-26 11:54] MED LIST: Albuterol/Ipratropium Nebulize NEB; COLACE100 M1 PO; DOXYCYCLINE HY100 MG PO; Fluticasone Propionate NS; LOPRESSOR25 MG PO; MIRTAZAPINE15 MG PO; MUCINEX DM ER1 EACH PO; NORVASC10 MG PO; PREDNISONE20 MG PO; PROTONIX40 MG/ML PO
[2018-01-26] MEDS ORDERED: ALBUTEROL SULF 0.083% NEB SOLN 3 ML NEB NEB STA (11:56)
[2018-01-26] MEDS ORDERED: IPRATROPIUM BROMIDE 0.02% 2.5 ML NEB NEB STA (11:56)
--- OUTSIDE RECORDS SUMMARY | 2018-01-26 11:56 | XMS REPORT ---
Author Author [facility] Address Unknown Phone Unavailable Care Team Providers Care Bench Hand Machine Name Role Phone MACIE WOLF Unavailable Unavailable Problems This patient has no known problems. Allergies, Adverse Reactions, Alerts This patient has no known allergies or adverse reactions. Medications This patient has no known medications. Results Test Description Test Time Test Comments Text Results Atomic Results Result Comments CHEST SINGLE (PORTABLE) [place] [address] Patient Name: SD HORTON MR #: [id number] : 1960 Age/Sex: 57/F Req #: [id number] Adm Physician: MACIE WOLF MD Ordered by: SAM CRESPO Report #: [id number] Location: MED/SURG Room/Bed: [facility] Procedure: [id number] DX/CHEST SINGLE (PORTABLE) Exam Date: Exam Time: 0730 REPORT STATUS: Signed EXAMINATION: CHEST SINGLE (PORTABLE) INDICATION: COMPARISON: 12/14/2017 FINDINGS: AP view TUBES and LINES: None. LUNGS: Lungs are well inflated. Lungs are clear. There is no evidence of pneumonia or pulmonary edema. Unchanged left midlung hyperdensity. PLEURA: No pleural effusion or pneumothorax. HEART AND MEDIASTINUM: The cardiomediastinal silhouette is unremarkable. BONES AND SOFT TISSUES: No acute osseous lesion. Soft tissues are unremarkable. UPPER ABDOMEN: No free air under the diaphragm. IMPRESSION: No acute thoracic abnormality. Unchanged left midlung hyperdensity which could be calcified pleural plaque, soft tissue calcification, or calcified granuloma. Signed by: Dr. Escobar Duval MD on 12/20/2017 8:16 AM Dictated By: ESCOBAR DUVAL MD 5 COPY TO: SAM CRESPO CHEST SINGLE (NOT PORTABLE) [place] [address] Patient Name: SD HORTON MR #: [id number] : 1960 Age/Sex: 57/F Req #: [id number] Adm Physician: MACIE WOLF MD Ordered by: SHANTA SILVERIO MD Report #: [id number] Location: [facility] Room/Bed: [place] [address] Procedure: [id number] DX/CHEST SINGLE (NOT PORTABLE) Exam Date: 12/14/17 Exam Time: 1820 REPORT STATUS: Signed PROCEDURE: A single AP view of the chest. COMPARISON: None. INDICATIONS: COPD AND SHORTNESS OF BREATH FINDINGS: Lines/tubes: None. Lungs: The lungs are hyperinflated. Minimal left lower lung field haziness. There is no evidence of pneumonia or pulmonary edema. Irregular density overlying left mid to lower lung field may represent calcified pleural plaque or calcified granuloma or soft tissue calcification. Pleura: There is no pleural effusion or pneumothorax. Heart and mediastinum: The heart and the mediastinum are unremarkable. Bones: No acute bony abnormality. IMPRESSION: Minimal left basilar hazy opacification, likely due to overlying soft tissue attenuation. Developing pneumonia cannot be entirely excluded in the appropriate clinical setting. Hyperinflated lungs with suggestion of COPD. Dictated by: Escobar Duval M.D. on 12/14/2017 at 19:02 Electronically approved by: Escobar Duval M.D. on 12/14/2017 at 19:02 Dictated By: ESCOBAR DUVAL MD 01 Transcribed By: ELEANOR on 12/14/171901 COPY TO: SHANTA SILVERIO MD
[2018-01-26] MEDS ORDERED: ALBUTEROL/IPRATROPIUM 3 ML NEB ONE (12:04)
[2018-01-26] MEDS ORDERED: METHYLPREDNISOLONE SOD SUCC 125 MG/2ML VIAL IV NR (12:15)
[2018-01-26] MEDS ORDERED: ONDANSETRON HCL INJ 2 MG/ML VIAL IV STA (12:26)
[2018-01-26 12:29] LABS: BASOPHILS # (AUTO) 0.1 (0.0-0.1); BASOPHILS % 0.8 % (0.0-1.0); EOSINOPHILS # (AUTO) 0.1 (0.0-0.4); EOSINOPHILS % 1.1 % (0.0-6.0); HEMATOCRIT 36.4 % (34.2-44.1); HEMOGLOBIN 11.6 g/dL (12.0-16.0); LYMPHOCYTES # (AUTO) 0.9 (1.0-3.2); MEAN CORPUSCULAR HEMOGLOBIN 28.6 pg (28-32); MEAN CORPUSCULAR HGB CONC 31.9 g/dL (31-35); MEAN CORPUSCULAR VOLUME 89.7 fL (81-99); MONOCYTES # (AUTO) 0.3 (0.2-0.8); MONOCYTES % 2.9 % (4.4-11.3); NEUTROPHILS # (AUTO) 7.9 (2.1-6.9); NEUTROPHILS % 84.8 % (38.7-80.0); PLATELET COUNT 287 x10e3/uL (140-360); RED BLOOD COUNT 4.06 x10e6/uL (3.6-5.1)
[2018-01-26 12:35] LABS: ABG HCO3 31 mmol/L (23-28); ABG PCO2 52 mmHg (41-51); ABG PH 7.38 (7.31-7.41); ABG PO2 132 mmHg (80-105)
[2018-01-26 12:38] LABS: INR 1.03; PROTHROMBIN TIME 12.7 seconds (11.9-14.5)
[2018-01-26 12:39] LABS: PARTIAL THROMBOPLASTIN TIME 26.9 seconds (23.8-35.5)
[2018-01-26] MEDS ORDERED: ALBUTEROL/IPRATROPIUM 3 ML NEB NEB ONE (12:45)
[2018-01-26 12:46] LABS: MAGNESIUM 1.8 MG/DL (1.3-2.1)
[2018-01-26 12:53] LABS: CREATINE KINASE MB 2.3 ng/mL (0-5.0)
[2018-01-26 12:55] LABS: B-TYPE NATRIURETIC PEPTIDE2 105.6 pg/mL (0-100)
--- NOTE | 2018-01-26 13:01 | Diagnostic Imaging Report ---
PROCEDURE: A single AP view of the chest. COMPARISON: Chest x-ray 12/20/2017. INDICATIONS: SHORT OF BREATH FINDINGS: Lines/tubes: None. Lungs: The lungs are well inflated and clear. There is no evidence of pneumonia or pulmonary edema. Pleura: There is no pleural effusion or pneumothorax. Heart and mediastinum: The heart and the mediastinum are unremarkable. Bones: No acute bony abnormality. IMPRESSION: No acute cardiopulmonary disease. Dictated by: Warren Davidson M.D. on 01/26/2018 at 13:00 Electronically approved by: Warren Davidson M.D. on 01/26/2018 at 13:00
[2018-01-26 13:23] LABS: ALANINE AMINOTRANSFERASE 12 IU/L (0-55); ALBUMIN 3.9 g/dL (3.5-5.0); ALBUMIN/GLOBULIN RATIO 1.3 (0.8-2.0); ALKALINE PHOSPHATASE 62 IU/L (40-150); ANION GAP 13.4 mmol/L (8-16); BLOOD UREA NITROGEN 12 mg/dL (7-26); BUN/CREATININE RATIO 18 (6-25); CALCIUM 9.4 mg/dL (8.4-10.2); CARBON DIOXIDE 27 mmol/L (22-29); CHLORIDE 107 mmol/L (98-107); CREATININE, SERUM 0.68 mg/dL (0.57-1.11); EST GLOMERULAR FILTRATION RATE > 60 ML/MIN (60-); GLUCOSE 109 mg/dL (74-118); POTASSIUM 4.4 mmol/L (3.5-5.1); SODIUM 143 mmol/L (136-145)
[2018-01-26] MEDS ORDERED: SODIUM CHLORIDE FLUSH 10 ML SYR INJ PRN (15:15)
[2018-01-26] MEDS ORDERED: SODIUM CHLORIDE 0.9% 50ML 50 ML ONE (15:39)
[2018-01-26] MEDS ORDERED: IOPAMIDOL 370 MG/ML 200 ML INFUS..BTL INJ ONE (15:39)
[2018-01-26] MEDS ORDERED: GABAPENTIN100 MG PO (16:46)
[2018-01-26] MEDS ORDERED: ACETAMINOPHEN-1 EAC4 PO (16:46)
[2018-01-26] MEDS ORDERED: BROVANA15 MCG/2 M NEB (16:46)
[2018-01-26] MEDS ORDERED: TEMAZEPAM15 MG PO (16:46)
[2018-01-26] MEDS ORDERED: LORAZEPAM1 MG PO (16:46)
[2018-01-26] MEDS ORDERED: SUCRALFATE1 GM PO (16:46)
[2018-01-26] MEDS ORDERED: ATORVASTATIN CA40 MG PO (16:46)
--- NOTE | 2018-01-26 16:59 | Diagnostic Imaging Report ---
PROCEDURE: CT scan of the chest WITH intravenous contrast, using pulmonary angiogram protocol. TECHNIQUE: The chest was scanned utilizing a multidetector helical scanner from the lung apex through the level of the adrenal glands after the IV administration of 68 cc of Isovue 370. Coronal and sagittal multiplanar reformations were obtained. Total DLP: 515.38 mGy-cm COMPARISON: Chest x-ray 01/26/2018. INDICATIONS: sob, pe FINDINGS: Lines/tubes: None. Lungs and Airways: Severe centrilobular emphysema worse in the right lung. 4.5 mm mildly spiculated nodule in the lateral right upper lobe (series 3 image 27). Calcified granuloma in the posterior left upper lobe (series 3 image 61). Single partial questionable filling defect no branch of the right upper lobe seen on only one image (series 2 image 47). There is adjacent beam hardening artifact. This likely represents artifact. Pleura: The pleural spaces are clear. Heart and mediastinum: The thyroid gland is normal. No significant mediastinal, hilar or axillary lymphadenopathy is seen. 1.1 x 1.9 cm right hilar lymph node. Calcified aortopulmonary window and left hilar lymph node. The heart and pericardium are within normal limits. Fat-containing right posterior Bochdalek type hernia. Soft tissues: Normal. Abdomen: Limited contrast-enhanced views of the upper abdomen show no abnormality within the visualized liver, spleen, pancreas, or kidneys. The adrenal glands are normal. Bones: The visualized bony thorax is within normal limits. IMPRESSION: 1. No central pulmonary emboli. 2. Severe emphysema. 3. 4.5 mm mildly spiculated nodule in the right upper lobe. Recommend followup CT in one year. Dictated by: Warren Davidson M.D. on 01/26/2018 at 16:58 Electronically approved by: Warren Davidson M.D. on 01/26/2018 at 16:58
[2018-01-26] MEDS ORDERED: LORAZEPAM 1 MG TAB PO ONE (17:00)
[2018-01-26] MEDS: AZITHROMYCIN 250 MG TAB PO SCH (17:06)
[2018-01-26 17:30] VITALS: BP 151/78
[2018-01-26 17:53] VITALS: BP 151/78
[2018-01-26] MEDS ORDERED: HYDRALAZINE HCL 10 MG TAB PO PRN (19:30)
[2018-01-26 19:55] VITALS: BP 133/67
[2018-01-26] MEDS: HYDROCODONE/APAP 5MG-325MG TAB PO PRN (19:55)
[2018-01-26] MEDS: METOPROLOL TARTRATE 25 MG TAB PO SCH (19:55)
[2018-01-26 20:00] VITALS: BP 133/67
[2018-01-26] MEDS: ALBUTEROL/IPRATROPIUM 3 ML NEB NEB SCH (20:30)
[2018-01-26 21:26] LABS: CREATINE KINASE 76 IU/L (29-168)
[2018-01-26] MEDS: TEMAZEPAM 15 MG CAP PO PRN (21:28)
[2018-01-26] MEDS ORDERED: PANTOPRAZOLE SO40 MG PO (22:06)
[2018-01-26] MEDS ORDERED: MUCINEX DM ER1 EACH PO (22:06)
[2018-01-26 23:41] VITALS: BP 121/80
[2018-01-27] MEDS: ALBUTEROL/IPRATROPIUM 3 ML NEB NEB SCH ×4 (00:40→20:30)
[2018-01-27] MEDS: HYDROCODONE/APAP 5MG-325MG TAB PO PRN ×3 (04:56→17:49)
[2018-01-27 05:12] VITALS: BP 116/58
[2018-01-27 06:33] LABS: BASOPHILS % 0.1 % (0.0-1.0); HEMATOCRIT 32.9 % (34.2-44.1); HEMOGLOBIN 10.6 g/dL (12.0-16.0); LYMPHOCYTES # (AUTO) 1.2 (1.0-3.2); LYMPHOCYTES % 12.5 % (18.0-39.1); MEAN CORPUSCULAR HEMOGLOBIN 28.7 pg (28-32); MEAN CORPUSCULAR HGB CONC 32.2 g/dL (31-35); MEAN CORPUSCULAR VOLUME 89.2 fL (81-99); MONOCYTES # (AUTO) 0.7 (0.2-0.8); MONOCYTES % 7.1 % (4.4-11.3); NEUTROPHILS # (AUTO) 7.6 (2.1-6.9); NEUTROPHILS % 79.6 % (38.7-80.0); PLATELET COUNT 294 x10e3/uL (140-360); RED BLOOD COUNT 3.69 x10e6/uL (3.6-5.1); RED CELL DISTRIBUTION WIDTH 13.1 % (11.7-14.4)
[2018-01-27 06:56] LABS: ANION GAP 16.2 mmol/L (8-16); BLOOD UREA NITROGEN 19 mg/dL (7-26); BUN/CREATININE RATIO 29 (6-25); CALCIUM 9.3 mg/dL (8.4-10.2); CARBON DIOXIDE 27 mmol/L (22-29); CHLORIDE 107 mmol/L (98-107); CREATINE KINASE 50 IU/L (29-168); CREATININE, SERUM 0.66 mg/dL (0.57-1.11); EST GLOMERULAR FILTRATION RATE > 60 ML/MIN (60-); GLUCOSE 114 mg/dL (74-118); POTASSIUM 4.2 mmol/L (3.5-5.1); SODIUM 146 mmol/L (136-145)
[2018-01-27] MEDS ORDERED: FAMOTIDINE 20 MG TAB PO SCH (07:30)
[2018-01-27] MEDS ORDERED: DOCUSATE SODIUM 100 MG CAP PO PRN (08:00)
[2018-01-27] MEDS ORDERED: METHYLPREDNISOLONE SOD SUCC 125 MG/2ML VIAL IV SCH ×2 (08:00→16:00)
[2018-01-27 08:37] VITALS: BP 141/70
[2018-01-27] MEDS: AMLODIPINE BESYLATE 10 MG TAB PO SCH (09:24)
[2018-01-27] MEDS: METOPROLOL TARTRATE 25 MG TAB PO SCH ×2 (09:24→20:45)
[2018-01-27] MEDS: PANTOPRAZOLE SOD 40 MG TABEC PO SCH (09:25)
[2018-01-27 10:25] LABS: BILIRUBIN,URINE NEGATIVE (NEGATIVE); CLARITY,URINE CLEAR (CLEAR); COLOR,URINE YELLOW (YELLOW); KETONES,URINE NEGATIVE (NEGATIVE); LEUKOCYTE ESTERASE ,URINE NEGATIVE (NEGATIVE); NITRITE,URINE NEGATIVE (NEGATIVE); PROTEIN,URINE DIPSTICK NEGATIVE (NEGATIVE); URINE UROBILINOGEN 0.2 mg/dL (0.2 - 1)
[2018-01-27 10:50] LABS: RBC,URINE 0-5 /HPF (0-5); WBC,URINE (MAN) 0-5 /HPF (0-5)
[2018-01-27] MEDS: SUCRALFATE 1 GM TAB PO SCH ×2 (11:09→16:20)
[2018-01-27] MEDS: GUAIFENESIN 600MG/DEXTROMETHORPHAN 30MG TABSR PO SCH ×2 (11:09→17:48)
[2018-01-27 12:15] VITALS: BP 144/74
[2018-01-27] MEDS: ONDANSETRON HCL INJ 2 MG/ML VIAL IV PRN (15:19)
[2018-01-27 16:00] VITALS: BP 133/73
[2018-01-27] MEDS: AZITHROMYCIN 250 MG TAB PO SCH (16:20)
[2018-01-27] MEDS: METHYLPREDNISOLONE SOD SUCC 40 MG/ML VIAL IV SCH (17:48)
[2018-01-27 20:00] VITALS: BP 129/86
[2018-01-27] MEDS: ATORVASTATIN 40 MG TAB PO SCH (20:44)
[2018-01-27] MEDS: MIRTAZAPINE 15 MG TAB PO SCH (20:45)
[2018-01-27] MEDS: TEMAZEPAM 15 MG CAP PO PRN (20:46)
[2018-01-27] MEDS ORDERED: NON-FORMULARY MEDICATION (Atorvastatin Calcium 40 MG) PO SCH (21:00)
[2018-01-28] VITALS (7 sets, daily range): BP systolic 110–130; BP diastolic 57–72
[2018-01-28] MEDS: METHYLPREDNISOLONE SOD SUCC 40 MG/ML VIAL IV SCH ×3 (00:10→15:43)
[2018-01-28] MEDS: LORAZEPAM 1 MG TAB PO PRN ×2 (00:10→20:57)
[2018-01-28] MEDS: GUAIFENESIN 600MG/DEXTROMETHORPHAN 30MG TABSR PO SCH ×4 (00:15→17:31)
[2018-01-28] MEDS: ALBUTEROL/IPRATROPIUM 3 ML NEB NEB SCH ×6 (00:40→20:10)
[2018-01-28] MEDS: HYDROCODONE/APAP 5MG-325MG TAB PO PRN ×3 (01:42→15:43)
[2018-01-28 06:21] LABS: BASOPHILS % 0.1 % (0.0-1.0); HEMATOCRIT 31.8 % (34.2-44.1); HEMOGLOBIN 10.1 g/dL (12.0-16.0); LYMPHOCYTES # (AUTO) 1.1 (1.0-3.2); LYMPHOCYTES % 7.9 % (18.0-39.1); MEAN CORPUSCULAR HEMOGLOBIN 28.7 pg (28-32); MEAN CORPUSCULAR HGB CONC 31.8 g/dL (31-35); MEAN CORPUSCULAR VOLUME 90.3 fL (81-99); MONOCYTES # (AUTO) 0.4 (0.2-0.8); MONOCYTES % 2.7 % (4.4-11.3); NEUTROPHILS # (AUTO) 12.2 (2.1-6.9); NEUTROPHILS % 88.3 % (38.7-80.0); PLATELET COUNT 287 x10e3/uL (140-360); RED BLOOD COUNT 3.52 x10e6/uL (3.6-5.1); RED CELL DISTRIBUTION WIDTH 13.2 % (11.7-14.4)
[2018-01-28 06:38] LABS: ANION GAP 11.4 mmol/L (8-16); BLOOD UREA NITROGEN 23 mg/dL (7-26); BUN/CREATININE RATIO 35 (6-25); CALCIUM 9.1 mg/dL (8.4-10.2); CARBON DIOXIDE 30 mmol/L (22-29); CHLORIDE 106 mmol/L (98-107); CREATININE, SERUM 0.65 mg/dL (0.57-1.11); EST GLOMERULAR FILTRATION RATE > 60 ML/MIN (60-); GLUCOSE 132 mg/dL (74-118); MAGNESIUM 1.9 MG/DL (1.3-2.1); POTASSIUM 4.4 mmol/L (3.5-5.1); SODIUM 143 mmol/L (136-145)
[2018-01-28] MEDS: PANTOPRAZOLE SOD 40 MG TABEC PO SCH (07:28)
[2018-01-28] MEDS: SUCRALFATE 1 GM TAB PO SCH ×3 (07:28→15:43)
[2018-01-28] MEDS: METOPROLOL TARTRATE 25 MG TAB PO SCH ×2 (09:11→20:57)
[2018-01-28] MEDS: AMLODIPINE BESYLATE 10 MG TAB PO SCH (09:12)
[2018-01-28] MEDS: AZITHROMYCIN 250 MG TAB PO SCH (15:43)
[2018-01-28] MEDS: ATORVASTATIN 40 MG TAB PO SCH (20:56)
[2018-01-28] MEDS: MIRTAZAPINE 15 MG TAB PO SCH (20:57)
[2018-01-29 00:36] VITALS: BP 135/72
[2018-01-29] MEDS: METHYLPREDNISOLONE SOD SUCC 40 MG/ML VIAL IV SCH ×2 (00:39→07:44)
[2018-01-29] MEDS: GUAIFENESIN 600MG/DEXTROMETHORPHAN 30MG TABSR PO SCH ×2 (00:39→06:14)
[2018-01-29] MEDS: HYDROCODONE/APAP 5MG-325MG TAB PO PRN ×2 (01:05→07:44)
[2018-01-29] MEDS: TEMAZEPAM 15 MG CAP PO PRN (01:10)
[2018-01-29 01:24] VITALS: BP 135/72
[2018-01-29] MEDS: ALBUTEROL/IPRATROPIUM 3 ML NEB NEB SCH ×3 (03:00→11:00)
[2018-01-29 04:00] VITALS: BP 130/62
[2018-01-29] MEDS: PANTOPRAZOLE SOD 40 MG TABEC PO SCH (07:44)
[2018-01-29] MEDS: SUCRALFATE 1 GM TAB PO SCH (07:44)
[2018-01-29 08:00] VITALS: BP 135/65
[2018-01-29] MEDS: ONDANSETRON HCL INJ 2 MG/ML VIAL IV PRN (08:39)
[2018-01-29] MEDS: METOPROLOL TARTRATE 25 MG TAB PO SCH (08:39)
[2018-01-29] MEDS: AMLODIPINE BESYLATE 10 MG TAB PO SCH (08:39)
[2018-01-29 09:19] VITALS: BP 135/65
[2018-01-29] MEDS ORDERED: PREDNISONE20 MG PO (10:51)
[2018-01-29] MEDS ORDERED: AZITHROMYCIN250 MG PO (10:51)
[2018-01-29] MEDS ORDERED: PANTOPRAZOLE SO40 MG PO (10:58)
[2018-01-29] MEDS ORDERED: ALBUTEROL HFA INH (10:58)
[2018-01-29] MEDS ORDERED: ZITHROMAX250 MG PO (11:02)
[2018-01-29 11:15] VITALS: BP 141/73
--- NOTE | 2018-01-31 01:40 | Discharge Summary ---
ADMISSION DIAGNOSES: 1. Chronic obstructive pulmonary disease exacerbation. 2. Hypertension. 3. Chronic peptic ulcers. 4. Anxiety. 5. Depression. DISCHARGE DIAGNOSES: 1. Chronic obstructive pulmonary disease exacerbation. 2. Hypertension. 3. Chronic peptic ulcers. 4. Anxiety. 5. Depression. 6. Ruled out deep venous thrombosis. 7. Ruled out flu. HISTORY: Patient has a history of hypertension, CHF, COPD, asthma, hyperlipidemia, CAD, peptic ulcers, depression, and anxiety. Surgical history of appendectomy, hysterectomy, right breast lumpectomy. HOSPITAL COURSE: Uyuex[age]ldpe[age]uv-old female presented with 1-month shortness of breath, tachycardia, and left lower extremity and left upper extremity swelling. She uses oxygen at home, but has had a decreased ability to move without symptoms. Swelling decreased in the extremities a week before admission, but the shortness of breath continued. Patient was started on antibiotics for COPD. Chest x-ray was negative. CT of the chest showed no emboli, severe emphysema, a 4.5-mm nodule in the right upper lobe. Patient was advised to follow up with a CAT scan in 1 year. The left upper extremity was negative for DVT, and the bilateral lower extremities were negative for DVT. Patient feeling much better on date of discharge. No wheezing noted. Patient no longer had any swelling or pain to her extremities. Patient was sent home on antibiotics and tapered steroid dose along with a rescue inhaler per her request. Patient will follow up with PCP in 1 to 2 weeks and will follow up with that chest CT in 1 year. Patient sent home with family. Dictated by Gina Talley NP MACIE WOLF MD Job#: [id number]
== END 2018-01-29 11:32 | disposition home or self-care (01) ==
LOC: ER 11:54 → IMCU 16:27
PROVIDERS: ADMIT Internal Medicine; ATTEND Internal Medicine
DX: J44.1 Chronic obstructive pulmonary disease with (acute) exacerbation (principal); I11.0 Hypertensive heart disease with heart failure; I50.9 Heart failure, unspecified; K27.7 Chronic peptic ulcer, site unspecified, without hemorrhage or perforation; F41.8 Other specified anxiety disorders; E78.5 Hyperlipidemia, unspecified; R91.1 Solitary pulmonary nodule
CPT/HCPCS: 36415 ×3; 36600; 71045; 71260; 80048 ×2; 80053; 81001; 82550 ×2; 82553 ×2; 82805; 83605; 83735 ×2; 83880; 84484 ×2; 85025 ×3; 85379; 85610; 85730; 87400; 93005; 93970; 93971; 94640 ×8; 99284; G0378 ×4; J2405 ×3; J2920 ×3; J2930 ×2; Q9967

== ENCOUNTER 2018-03-01 19:03 | Emergency (ER) | payer OTHER ==
[~2018-03-01] VITALS: Ht 162.6 cm; Wt 64.0 kg
[~2018-03-01 19:03] MED LIST changes: +ACETAMINOPHEN-1 EAC4 PO; +ALBUTEROL HFA INH; +ATORVASTATIN CA40 MG PO; +AZITHROMYCIN250 MG PO; +BROVANA15 MCG/2 M NEB; +GABAPENTIN100 MG PO; +LORAZEPAM1 MG PO; +PANTOPRAZOLE SO40 MG PO; +SUCRALFATE1 GM PO; +TEMAZEPAM15 MG PO; +ZITHROMAX250 MG PO
--- OUTSIDE RECORDS SUMMARY | 2018-03-01 19:06 | XMS REPORT | Continuity of Care Document ---
Author Author [facility] Organization [facility] Address [address] [place] [address] Phone Unavailable Care Team Providers Care Sap Fico Architect Name Role Phone MACIE WOLF MD PCP Insurance Providers Guarantor Sarah Horton Address [address] [place] [address] [facility] Policy Number [id number] Subscriber's Name Clement Reyes Relationship G8 Other Relationship Group Number [id number] Effective Date 17 Advance Directives Directive Response Recorded Date/Time Does the patient have an advance directive? No 01/26/18 8:00pm If yes, is advance directive on file with [facility]? No 12/15/17 11:58am If not on file with [facility] will patient provide a copy? No 12/15/17 11:58am Do you have a Directive to Physician? No 01/26/18 2:19pm Do you have a Medical Power of Computer Programmer Analyst? No 01/26/18 2:19pm Do you have an out of hospital Do Not Resuscitate Order? No 01/26/18 2:19pm Do you have any special needs we should be aware of? No 01/26/18 2:19pm Do you have a support person here with you today? Yes 01/26/18 2:19pm Did patient receive Notice of Privacy Practices? Yes 01/26/18 2:19pm Did patient receive patient rights and responsibilities? Yes 01/26/18 2:19pm Problems Medical Problem Onset Date Status COPD exacerbation Unknown Medications Current Home Medications Medication Dose Units Route Directions Days Qty Instructions Start Date Acetaminophen With Codeine (Acetaminophen-Cod #4 Tablet) 1 Each Tablet 1 Tab Oral Every 6 Hours as needed for Pain 90 Albuterol Hfa 1 Inh Inhalation Every 8 Hours as needed for Shortness Of Breath 1 01/29/18 Albuterol/Ipratropium Nebulize 3 Ml Inha 3 Ml Nebullizer Rt Q4h 30 Days 12/21/17 Amlodipine Besylate (Norvasc) 10 Mg Tab 10 Mg Oral Daily 30 Days Arformoterol Tartrate (Brovana) 15 Mcg/2 Ml Nebu 15 Mcg Nebullizer Twice A Day 120 Atorvastatin Calcium 40 Mg Tablet 40 Mg Oral Bedtime 30 Azithromycin (Zithromax) 250 Mg Tablet 250 Mg Oral Daily 2 Days 01/17 Docusate Sodium (Colace) 100 Mg Capsule 100 Mg Oral As Needed 20 12/21/17 Guaifenesin/Dextromethorphan (Mucinex Dm Er 600-30 Mg Tablet) 1 Each Tab.er.12h 1 Each Oral Every 12 Hours as needed for Nasal Congestion Lorazepam 1 Mg Tablet 1 Mg Oral Three Times A Day as needed for Anxiety 60 Metoprolol Tartrate (Lopressor) 25 Mg Tab 25 Mg Oral Every 12 Hours 30 Days 12/21/17 Mirtazapine 15 Mg Tab 15 Mg Oral Bedtime 30 Days 12/21/17 Pantoprazole Sodium (Protonix) 40 Mg Tablet.dr 40 Mg Oral Before Breakfast 30 Days 01/29/18 Prednisone 20 Mg Tab 10 Mg Oral Use As Directed 16 Days 5 TAKE 40MG PO DAILY X4 DAYS THEN TAKE 30MG PO DAILY X4 DAYS THEN TAKE 20MG PO DAILY X4 DAYS THEN TAKE 10MG PO DAILY X4 DAYS THEN STOP 01/29/18 Sucralfate 1 Gm Tablet 1 Gm Oral Three Times A Day 60 Temazepam 15 Mg Capsule 15 Mg Oral Bedtime as needed for Insomnia 30 Past Home Medications Medication Directions Ordered Status Doxycycline Hyclate 100 Mg Capsule, 100 Mg Oral Twice A Day 12/21/17 Discontinued Fluticasone Propionate 1 Ea [place], 1 Ea Nasal Twice A Day 12/21/17 Discontinued Gabapentin 100 Mg Capsule, 100 Mg Oral Three Times A Day Discontinued Prednisone 20 Mg Tab, 20 Mg Oral Twice A Day 12/21/17 Discontinued Social History Social History Problem Response Recorded Date/Time Onset Date Status Hx Psychiatric Problems Yes 01/26/2018 8:00pm Not Applicable Not Applicable Hx Eating Disorder No 01/26/2018 8:00pm Not Applicable Not Applicable Hx Substance Use Disorder No 01/26/2018 8:00pm Not Applicable Not Applicable Hx Depression Yes 01/26/2018 8:00pm Not Applicable Not Applicable Hx Alcohol Use No 01/26/2018 8:00pm Not Applicable Not Applicable Hx Substance Use Treatment No 01/26/2018 8:00pm Not Applicable Not Applicable Hx Physical Abuse No 01/26/2018 8:00pm Not Applicable Not Applicable Smoking Status Start Date Stop Date Former smoker Hospital Discharge Instructions No hospital discharge instruction information available. Plan of Care Discharge Date 01/29/18 11:32am Disposition HOME, SELF-CARE Instructions/Education Provided COPD Prescriptions See Medication Section Additional Instructions/Education F/U FOR CHEST CT IN 1 YEAR Functional Status Query Response Date Recorded Assistive Devices None January 26, 2018 5:53pm Ambulation Ability Independent January 26, 2018 5:53pm Toileting Ability Independent January 28, 2018 6:10pm Allergies, Adverse Reactions, Alerts Allergen Type Severity Reaction Status Last Updated Morphine Allergy Unknown Active 12/14/17 UNK ANTIBIOTIC Allergy Unknown Active 12/14/17 Immunizations No immunization information available. Vital Signs Acute Vital Signs Vital Response Date/Time Temperature (Fahrenheit) 96.5 degrees F (97.6 - 99.5) 01/29/2018 9:19am Pulse Pulse Rate (adult) 96 bpm (60 - 90) 01/29/2018 9:19am Respiratory Rate 16 bpm (12 - 24) 01/29/2018 9:19am Blood Pressure 135/65 mm Hg 01/29/2018 9:19am Height 5 ft 4 in 01/26/2018 12:01pm Weight 141 lb 01/26/2018 12:01pm Body Mass Index 24.2 kg/m^2 01/26/2018 8:00pm Results Laboratory Results Test Name Result Units Flags Reference Collection Date/Time Result Date/ Time Comments Thyroid Stimulating Hormone (TSH) 0.122 uIU/mL L 0.350-4.940 12/16/2017 5 :45am 12/16/2017 7:12am White Blood Count 13.86 x10e3/uL H 4.8-10.8 01/28/2018 6:00am 2017 6:22am Red Blood Count 3.52 x10e6/uL L 3.6-5.1 01/28/2018 6:00am 01/28/2018 6: 22am Hemoglobin 10.1 g/dL L 12.0-16.0 01/28/2018 6:00am 01/28/2018 6:22am Hematocrit 31.8 % L 34.2-44.1 01/28/2018 6:00am 01/28/2018 6:22am Mean Corpuscular Volume 90.3 fL 81-99 01/28/2018 6:00am 01/28/2018 6: 22am Mean Corpuscular Hemoglobin 28.7 pg 28-32 01/28/2018 6:00am 01/28/2018 6:22am Mean Corpuscular Hemoglobin Concent 31.8 g/dL 31-35 01/28/2018 6:00am 01/28/2018 6:22am Red Cell Distribution Width 13.2 % 11.7-14.4 01/28/2018 6:00am 2017 6:22am Platelet Count 287 x10e3/uL 140-360 01/28/2018 6:00am 01/28/2018 6: 22am Neutrophils (%) (Auto) 88.3 % H 38.7-80.0 01/28/2018 6:00am 01/28/2018 6 :22am Lymphocytes (%) (Auto) 7.9 % L 18.0-39.1 01/28/2018 6:00am 01/28/2018 6: 22am Monocytes (%) (Auto) 2.7 % L 4.4-11.3 01/28/2018 6:00am 01/28/2018 6: 22am Eosinophils (%) (Auto) 0.0 % 0.0-6.0 01/28/2018 6:00am 01/28/2018 6: 22am Basophils (%) (Auto) 0.1 % 0.0-1.0 01/28/2018 6:00am 01/28/2018 6:22am IM GRANULOCYTES % 1.0 % 0.0-1.0 01/28/2018 6:00am 01/28/2018 6:22am Neutrophils # (Auto) 12.2 H 2.1-6.9 01/28/2018 6:00am 01/28/2018 6: 22am Lymphocytes # (Auto) 1.1 1.0-3.2 01/28/2018 6:00am 01/28/2018 6:22am Monocytes # (Auto) 0.4 0.2-0.8 01/28/2018 6:00am 01/28/2018 6:22am Eosinophils # (Auto) 0.0 0.0-0.4 01/28/2018 6:00am 01/28/2018 6:22am Basophils # (Auto) 0.0 0.0-0.1 01/28/2018 6:00am 01/28/2018 6:22am Absolute Immature Granulocyte (auto 0.14 x10e3/uL H 0-0.1 01/28/2018 6: 00am 01/28/2018 6:22am Prothrombin Time 12.7 seconds 11.9-14.5 01/26/2018 11:56am 01/26/2018 12:46pm Prothromb Time International Ratio 1.03 01/26/2018 11:56am 2017 12:46pm Oral Anticoagulant Therapy INR Values: 1. Low Intensity Therapy 1.5 - 2.0 2. Moderate Intensity Therapy 2.0 - 3.0 3. High Intensity Therapy(1) 2.5 - 3.5 4. High Intensity Therapy(2) 3.0 - 4.0 5. Panic Value INR > 5.0 Activated Partial Thromboplast Time 26.9 seconds 23.8-35.5 01/26/2018 11 :56am 01/26/2018 12:46pm D-Dimer Quantitative (PE/DVT) 0.57 ug/mLFEU H 0.00-0.45 01/26/2018 11: 56am 01/26/2018 1:00pm As with all in vitro diagnostic tests, the test results should be interpreted by the physician in conjunction with clinical findings and other test results. Test results are reported in NEW D-dimer units(ug/mLFEU). Urine Color YELLOW YELLOW 01/27/2018 10:10a01/27/2018 10:47am Urine Clarity CLEAR CLEAR 01/27/2018 10:10a01/27/2018 10:47am Urine Specific [place] 1.025 1.010-1.025 01/27/2018 10:10a2017 10:47am Urine pH 5 5 - 7 01/27/2018 10:10a01/27/2018 10:47am Urine Leukocyte Esterase NEGATIVE NEGATIVE 01/27/2018 10:10a2017 10:47am Urine Nitrite NEGATIVE NEGATIVE 01/27/2018 10:01/27/2018 10: 47am Urine Protein NEGATIVE NEGATIVE 01/27/2018 10:10a01/27/2018 10: 47am Urine Glucose (UA) NEGATIVE NEGATIVE 01/27/2018 10:10a01/27/2018 10 :47am Urine Ketones NEGATIVE NEGATIVE 01/27/2018 10:10a01/27/2018 10: 47am Urine Urobilinogen 0.2 mg/dL 0.2 - 1 01/27/2018 10:10a01/27/2018 10: 47am Urine Bilirubin NEGATIVE NEGATIVE 01/27/2018 10:01/27/2018 10: 47am Urine Blood 1+ H NEGATIVE 01/27/2018 10:10a01/27/2018 10:47am Urine WBC 0-5 /HPF 0-5 01/27/2018 10:10a01/27/2018 10:51am Urine RBC 0-5 /HPF 0-5 01/27/2018 10:10a01/27/2018 10:51am Urine Bacteria NONE /HPF NONE 01/27/2018 10:10a01/27/2018 10:51am Urine Epithelial Cells NONE /LPF NONE 01/27/2018 10:10a01/27/2018 10: 51am Sodium Level 143 mmol/L 136-145 01/28/2018 6:00am 01/28/2018 6:44am Potassium Level 4.4 mmol/L 3.5-5.1 01/28/2018 6:00am 01/28/2018 6:44am Chloride Level 106 mmol/L 98-107 01/28/2018 6:00am 01/28/2018 6:44am Influenza Virus Types A,B Antigen NEGATIVE NEGATIVE 01/26/2018 12: 15pm 01/26/2018 2:07pm Carbon Dioxide Level 30 mmol/L H 22-29 01/28/2018 6:00am 01/28/2018 6: 44am Anion Gap 11.4 mmol/L 8-16 01/28/2018 6:00am 01/28/2018 6:44am Blood Urea Nitrogen 23 mg/dL 7-01/28/2018 6:00am 01/28/2018 6:44am Creatinine 0.65 mg/dL 0.57-1.11 01/28/2018 6:00am 01/28/2018 6:44am BUN/Creatinine Ratio 35 H 6-01/28/2018 6:00am 01/28/2018 6:44am Estimat Glomerular Filtration Rate > 60 ML/MIN 60- 01/28/2018 6:00am 6:44am Ranges were taken from the National Kidney Disease Education Program and the National Kidney Foundation literature. Reference ranges: 60 or greater: Normal 16-59 (for 3 consecutive months): Chronic kidney disease 15 or less: Kidney failure Glucose Level 132 mg/dL H 74-118 01/28/2018 6:00am 01/28/2018 6:44am Calcium Level 9.1 mg/dL 8.4-10.2 01/28/2018 6:00am 01/28/2018 6:44am Lactic Acid Level 11.5 MG/DL 4.5-19.8 01/26/2018 11:56am 01/26/2018 12: 45pm Magnesium Level 1.9 MG/DL 1.3-2.1 01/28/2018 6:00am 01/28/2018 6:44am Total Bilirubin < 0.3 mg/dL 0.2-1.2 01/26/2018 11:56am 01/26/2018 1: 25pm Aspartate Amino Transf (AST/SGOT) 19 IU/L 5-34 01/26/2018 11:56am 01/26 1:25pm Alanine Aminotransferase (ALT/SGPT) 12 IU/L 0-55 01/26/2018 11:56am 1:25pm Total Protein 6.9 g/dL 6.5-8.1 01/26/2018 11:56am 01/26/2018 1:25pm Albumin 3.9 g/dL 3.5-5.0 01/26/2018 11:56am 01/26/2018 1:25pm Globulin 3.0 g/dL 2.3-3.5 01/26/2018 11:56am 01/26/2018 1:25pm Albumin/Globulin Ratio 1.3 0.8-2.0 01/26/2018 11:56am 01/26/2018 1: 25pm Alkaline Phosphatase 62 IU/L 40-150 01/26/2018 11:56am 01/26/2018 1: 25pm B-Type Natriuretic Peptide 105.6 pg/mL H 0-100 01/26/2018 11:56am 2017 12:58pm Creatine Kinase 50 IU/L 29-168 01/27/2018 6:10am 01/27/2018 6:58am Creatine Kinase MB 1.60 ng/mL 0-5.0 01/27/2018 6:10am 01/27/2018 8: 09am Troponin I 0.005 ng/mL 0-0.300 01/27/2018 6:10am 01/27/2018 8:09am Arterial Blood pH 7.38 7.31-7.41 01/26/2018 12:29pm 01/26/2018 12: 36pm Arterial Blood Partial Pressure CO2 52 mmHg H 41-51 01/26/2018 12:29pm 01/26/2018 12:36pm Arterial Blood Partial Pressure O2 132 mmHg H 80-105 01/26/2018 12:29pm 01/26/2018 12:36pm Arterial Blood HCO3 31 mmol/L H 23-28 01/26/2018 12:29pm 01/26/2018 12: 36pm Arterial Blood Base Excess 6.0 mmol/L H -2 - 3 01/26/2018 12:29pm 2017 12:36pm Arterial Blood Oxygen Saturation 99.0 % H 95-98 01/26/2018 12:29pm 01/26 12:36pm Microbiology Results Procedure Source Organism/Result Collection Date/Time Result Date/Time Result Status Blood Culture Blood NO GROWTH AFTER 5 DAYS, FINAL REPORT 12/14/2017 7:45pm 12/19/2017 8:40pm Final Procedures Procedure Status Date Provider(s) INSERTION OF INFUSION DEV INTO SUP VENA CAVA, PERC APPROACH Completed NATASHA LEE NP X-ray of chest, single view Active 12/14/17 SHANTA SILVERIO MD Computed tomography of chest with contrast Active 01/26/18 EMELIA BROWNING MD Encounters Encounter Location Arrival/Admit Date Discharge/Depart Date Attending Provider Discharged Inpatient (obs) [facility] 01/26/18 4:27pm 01/17 11:32am MACIE WOLF MD Discharged Inpatient [facility] Patients [facility] 12/16/17 9:44pm 12/21/17 3:04pm MACIE WOLF MD
[2018-03-01] MEDS ORDERED: IPRATROPIUM BROMIDE 0.02% 2.5 ML NEB NEB STA (20:05)
[2018-03-01] MEDS ORDERED: ALBUTEROL SULF 0.083% NEB SOLN 3 ML NEB NEB STA ×2 (20:05→23:07)
[2018-03-01 22:55] LABS: BASOPHILS # (AUTO) 0.1 (0.0-0.1); BASOPHILS % 0.8 % (0.0-1.0); EOSINOPHILS # (AUTO) 0.1 (0.0-0.4); EOSINOPHILS % 1.2 % (0.0-6.0); HEMATOCRIT 36.8 % (34.2-44.1); HEMOGLOBIN 11.6 g/dL (12.0-16.0); LYMPHOCYTES # (AUTO) 1.2 (1.0-3.2); LYMPHOCYTES % 13.7 % (18.0-39.1); MEAN CORPUSCULAR HEMOGLOBIN 28.2 pg (28-32); MEAN CORPUSCULAR HGB CONC 31.5 g/dL (31-35); MEAN CORPUSCULAR VOLUME 89.5 fL (81-99); MONOCYTES # (AUTO) 0.4 (0.2-0.8); MONOCYTES % 4.1 % (4.4-11.3); NEUTROPHILS # (AUTO) 6.8 (2.1-6.9); NEUTROPHILS % 79.6 % (38.7-80.0); PLATELET COUNT 307 x10e3/uL (140-360); RED BLOOD COUNT 4.11 x10e6/uL (3.6-5.1); RED CELL DISTRIBUTION WIDTH 13.2 % (11.7-14.4)
[2018-03-01] MEDS ORDERED: IPRATROPIUM BROMIDE 0.02% 2.5 ML NEB NEB ONE (23:15)
[2018-03-01] MEDS ORDERED: METHYLPREDNISOLONE SOD SUCC 125 MG/2ML VIAL IV ONE (23:15)
[2018-03-01] MEDS ORDERED: METHYLPREDNISOLONE SOD SUCC 125 MG/2ML VIAL IM ONE (23:15)
[2018-03-01 23:17] LABS: ALANINE AMINOTRANSFERASE 11 IU/L (0-55); ALBUMIN 3.7 g/dL (3.5-5.0); ALBUMIN/GLOBULIN RATIO 1.2 (0.8-2.0); ALKALINE PHOSPHATASE 62 IU/L (40-150); ANION GAP 13.4 mmol/L (8-16); BLOOD UREA NITROGEN 18 mg/dL (7-26); BUN/CREATININE RATIO 27 (6-25); CALCIUM 9.5 mg/dL (8.4-10.2); CARBON DIOXIDE 24 mmol/L (22-29); CHLORIDE 109 mmol/L (98-107); CREATININE, SERUM 0.66 mg/dL (0.57-1.11); EST GLOMERULAR FILTRATION RATE > 60 ML/MIN (60-); GLUCOSE 127 mg/dL (74-118); POTASSIUM 4.4 mmol/L (3.5-5.1); SODIUM 142 mmol/L (136-145)
--- NOTE | 2018-03-02 00:50 | Diagnostic Imaging Report ---
EXAMINATION: CHEST 2 VIEWS INDICATION: Shortness of breath COMPARISON: 01/26/2018 and 12/14/2017 FINDINGS: TUBES and LINES: None. LUNGS: Lungs are well inflated. Left mid lung lateral calcified granuloma. There is no evidence of pneumonia or pulmonary edema. PLEURA: No pleural effusion or pneumothorax. HEART AND MEDIASTINUM: The cardiomediastinal silhouette is unremarkable. BONES AND SOFT TISSUES: No acute osseous lesion. Soft tissues are unremarkable. UPPER ABDOMEN: No free air under the diaphragm. IMPRESSION: 1. No acute thoracic abnormality. 2. Stable chest. Signed by: Dr. Clement Person M.D. on 03/02/2018 12:47 AM
== END 2018-03-02 01:05 | disposition home or self-care (01) ==
LOC: ER 19:49
DX: R06.00 Dyspnea, unspecified (principal); R05 Cough; J44.1 Chronic obstructive pulmonary disease with (acute) exacerbation; I10 Essential (primary) hypertension; Z99.81 Dependence on supplemental oxygen; K21.9 Gastro-esophageal reflux disease without esophagitis; F41.9 Anxiety disorder, unspecified; F32.9 Major depressive disorder, single episode, unspecified
CPT/HCPCS: 36415; 71046; 80053; 85025; 94640; 99284; J2930

== ENCOUNTER 2018-03-24 07:46 | Inpatient (IN) | payer OTHER ==
[~2018-03-24] VITALS: Ht 162.6 cm; Wt 65.0 kg
--- OUTSIDE RECORDS SUMMARY | 2018-03-24 07:49 | XMS REPORT | Continuity of Care Document ---
Author Author [facility] Organization [facility] Address [address] [place] [address] Phone Unavailable Care Team Providers Care All Source Intelligence Technician Name Role Phone MACIE WOLF MD PCP Insurance Providers Guarantor Sarah Horton Address [address] [place] [address] Payer [facility] Policy Number [id number] Subscriber's Name Clemetn Reyes Relationship G8 Other Relationship Group Number [id number] Effective Date 17 Advance Directives Directive Response Recorded Date/Time Does the patient have an advance directive? No 01/26/18 8:00pm If yes, is advance directive on file with [facility]? No 12/15/17 11:58am If not on file with [facility] will patient provide a copy? No 12/15/17 11:58am Problems Medical Problem Onset Date Status COPD [...] Day 12/21/17 Discontinued Fluticasone Propionate 1 Ea [place], 1 Ea Nasal Twice A Day 12/21/17 [...] Applicable Smoking Status Start Date Stop Date Never Smoker Hospital Discharge Instructions No hospital discharge instruction information available. Plan of Care Discharge Date 03/02/18 1:05am Disposition HOME, SELF-CARE Condition at Discharge Stable Instructions/Education Provided COPD Forms Provided Work/School Excuse Prescriptions See Medication Section Additional Instructions/Education FOLLOW UP WITH YOUR PRIMARY CARE DOCTOR CALL FOR APPT TAKE MEDICATIONS PRESCRIBED Functional Status No functional status information available. Allergies, Adverse Reactions, Alerts Allergen Type Severity Reaction Status Last Updated Morphine Allergy Unknown Active 03/01/18 UNK ANTIBIOTIC Allergy Unknown Active 12/14/17 Immunizations No immunization information available. Vital Signs Acute Vital Signs Vital Response Date/Time Temperature (Fahrenheit) 96.4 degrees F (97.6 - 99.5) 01/29/2018 11:15am Pulse Pulse Rate (adult) 94 bpm (60 - 90) 03/02/2018 1:00am Pulse Pulse Rate (adult) 94 bpm (60 - 90) 03/02/2018 1:00am Respiratory Rate 18 bpm (12 - 24) 03/02/2018 1:00am Blood Pressure 141/73 mm Hg 01/29/2018 11:15am Height 5 ft 4 in 03/01/2018 7:06pm Weight 141 lb 03/01/2018 7:06pm Body Mass Index 24.2 kg/m^2 03/01/2018 7:06pm Results Laboratory Results Test Name Result Units Flags Reference Collection Date/Time Result Date/ Time Comments Thyroid Stimulating Hormone (TSH) 0.122 uIU/mL L 0.350-4.940 12/16/2017 5 :45am 12/16/2017 7:12am Prothrombin Time 12.7 seconds 11.9-14.5 01/26/2018 11:56am [...] D-dimer units(ug/mLFEU). Urine Color YELLOW YELLOW 01/27/2018 10:10am 01/27/2018 10:47am Urine Clarity CLEAR CLEAR 01/27/2018 10:10am 01/27/2018 10:47am Urine Specific [place] 1.025 1.010-1.025 01/27/2018 10:10am 2017 10:47am Urine pH 5 5 - 7 01/27/2018 10:10am 01/27/2018 10:47am Urine Leukocyte Esterase NEGATIVE NEGATIVE 01/27/2018 10:10am 2017 10:47am Urine Nitrite NEGATIVE NEGATIVE 01/27/2018 10:10am 01/27/2018 10: 47am Urine Protein NEGATIVE NEGATIVE 01/27/2018 10:10am 01/27/2018 10: 47am Urine Glucose (UA) NEGATIVE NEGATIVE 01/27/2018 10:10am 01/27/2018 10 :47am Urine Ketones NEGATIVE NEGATIVE 01/27/2018 10:10am 01/27/2018 10: 47am Urine Urobilinogen 0.2 mg/dL 0.2 - 1 01/27/2018 10:10am 01/27/2018 10: 47am Urine Bilirubin NEGATIVE NEGATIVE 01/27/2018 10:10am 01/27/2018 10: 47am Urine Blood 1+ H NEGATIVE 01/27/2018 10:10am 01/27/2018 10:47am Urine WBC 0-5 /HPF 0-5 01/27/2018 10:10am 01/27/2018 10:51am Urine RBC 0-5 /HPF 0-5 01/27/2018 10:10am 01/27/2018 10:51am Urine Bacteria NONE /HPF NONE 01/27/2018 10:10am 01/27/2018 10:51am Urine Epithelial Cells NONE /LPF NONE 01/27/2018 10:10am 01/27/2018 10: 51am Influenza Virus Types A,B Antigen NEGATIVE NEGATIVE 01/26/2018 12: 15pm 01/26/2018 2:07pm Lactic Acid Level 11.5 MG/DL 4.5-19.8 01/26/2018 11:56am 01/26/2018 12: 45pm Magnesium Level 1.9 MG/DL 1.3-2.1 01/28/2018 6:00am 01/28/2018 6:44am B-Type Natriuretic Peptide 105.6 pg/mL H 0-100 [...] % H 95-98 01/26/2018 12:29pm 01/26 12:36pm White Blood Count 8.53 x10e3/uL 4.8-10.8 03/01/2018 10:36pm 03/01/2018 11:01pm Red Blood Count 4.11 x10e6/uL 3.6-5.1 03/01/2018 10:36pm 03/01/2018 11: 01pm Hemoglobin 11.6 g/dL L 12.0-16.0 03/01/2018 10:36pm 03/01/2018 11:01pm Hematocrit 36.8 % 34.2-44.1 03/01/2018 10:36pm 03/01/2018 11:01pm Mean Corpuscular Volume 89.5 fL 81-99 03/01/2018 10:36pm 03/01/2018 11: 01pm Mean Corpuscular Hemoglobin 28.2 pg 28-32 03/01/2018 10:36pm 2017 11:01pm Mean Corpuscular Hemoglobin Concent 31.5 g/dL 31-35 03/01/2018 10:36pm 03/01/2018 11:01pm Red Cell Distribution Width 13.2 % 11.7-14.4 03/01/2018 10:36pm 2017 11:01pm Platelet Count 307 x10e3/uL 140-360 03/01/2018 10:36pm 03/01/2018 11: 01pm Neutrophils (%) (Auto) 79.6 % 38.7-80.0 03/01/2018 10:36pm 03/01/2018 11:01pm Lymphocytes (%) (Auto) 13.7 % L 18.0-39.1 03/01/2018 10:36pm 03/01/2018 11:01pm Monocytes (%) (Auto) 4.1 % L 4.4-11.3 03/01/2018 10:36pm 03/01/2018 11: 01pm Eosinophils (%) (Auto) 1.2 % 0.0-6.0 03/01/2018 10:36pm 03/01/2018 11: 01pm Basophils (%) (Auto) 0.8 % 0.0-1.0 03/01/2018 10:36pm 03/01/2018 11: 01pm IM GRANULOCYTES % 0.6 % 0.0-1.0 03/01/2018 10:36pm 03/01/2018 11:01pm Neutrophils # (Auto) 6.8 2.1-6.9 03/01/2018 10:36pm 03/01/2018 11: 01pm Lymphocytes # (Auto) 1.2 1.0-3.2 03/01/2018 10:36pm 03/01/2018 11: 01pm Monocytes # (Auto) 0.4 0.2-0.8 03/01/2018 10:36pm 03/01/2018 11:01pm Eosinophils # (Auto) 0.1 0.0-0.4 03/01/2018 10:36pm 03/01/2018 11: 01pm Basophils # (Auto) 0.1 0.0-0.1 03/01/2018 10:36pm 03/01/2018 11:01pm Absolute Immature Granulocyte (auto 0.05 x10e3/uL 0-0.1 03/01/2018 10: 36pm 03/01/2018 11:01pm Sodium Level 142 mmol/L 136-145 03/01/2018 10:36pm 03/01/2018 11:19pm Potassium Level 4.4 mmol/L 3.5-5.1 03/01/2018 10:36pm 03/01/2018 11: 19pm Chloride Level 109 mmol/L H 98-107 03/01/2018 10:36pm 03/01/2018 11: 19pm Carbon Dioxide Level 24 mmol/L 22-29 03/01/2018 10:36pm 03/01/2018 11: 19pm Anion Gap 13.4 mmol/L 8-16 03/01/2018 10:36pm 03/01/2018 11:19pm Blood Urea Nitrogen 18 mg/dL 7-26 03/01/2018 10:36pm 03/01/2018 11: 19pm Creatinine 0.66 mg/dL 0.57-1.11 03/01/2018 10:36pm 03/01/2018 11:19pm BUN/Creatinine Ratio 27 H 6-25 03/01/2018 10:36pm 03/01/2018 11:19pm Estimat Glomerular Filtration Rate > 60 ML/MIN 60- 03/01/2018 10:36pm 03/01/2018 11:19pm Ranges were taken from the National Kidney Disease Education Program and the National Kidney Foundation literature. Reference ranges: 60 or greater: Normal 16-59 (for 3 consecutive months): Chronic kidney disease 15 or less: Kidney failure Glucose Level 127 mg/dL H 74-118 03/01/2018 10:36pm 03/01/2018 11:19pm Calcium Level 9.5 mg/dL 8.4-10.2 03/01/2018 10:36pm 03/01/2018 11:19pm Total Bilirubin 0.2 mg/dL 0.2-1.2 03/01/2018 10:36pm 03/01/2018 11: 19pm Aspartate Amino Transf (AST/SGOT) 19 IU/L 5-34 03/01/2018 10:36pm 03/01 11:19pm Alanine Aminotransferase (ALT/SGPT) 11 IU/L 0-55 03/01/2018 10:36pm 12/2017 11:19pm Total Protein 6.8 g/dL 6.5-8.1 03/01/2018 10:36pm 03/01/2018 11:19pm Albumin 3.7 g/dL 3.5-5.0 03/01/2018 10:36pm 03/01/2018 11:19pm Globulin 3.1 g/dL 2.3-3.5 03/01/2018 10:36pm 03/01/2018 11:19pm Albumin/Globulin Ratio 1.2 0.8-2.0 03/01/2018 10:36pm 03/01/2018 11: 19pm Alkaline Phosphatase 62 IU/L 40-150 03/01/2018 10:36pm 03/01/2018 11: 19pm Microbiology Results Procedure Source Organism/Result Collection Date/Time [...] with contrast Active 01/26/18 EMELIA BROWNING MD X-ray of chest, two views Active 03/01/18 GERALDINE PEREZ MD Encounters Encounter Location Arrival/Admit Date Discharge/Depart Date Attending Provider Departed Emergency Room [facility] 03/01/18 7:49pm 1:05am GERALDINE PEREZ MD [facility]obs[facility] 01/26/18 4:27pm 01/17 11:32am MACIE WOLF MD [facility] 12/16/17 9:44pm 12/21/17 3:04pm MACIE WOLF MD
[2018-03-24] MEDS ORDERED: PANTOPRAZOLE 40 MG 10ML VIAL IV STA (08:21)
[2018-03-24] MEDS ORDERED: IPRATROPIUM BROMIDE 0.02% 2.5 ML NEB NEB STA (08:21)
[2018-03-24] MEDS ORDERED: ALBUTEROL SULF 0.083% NEB SOLN 3 ML NEB NEB STA (08:21)
[2018-03-24] MEDS ORDERED: METHYLPREDNISOLONE SOD SUCC 125 MG/2ML VIAL IV ONE (08:30)
[2018-03-24 08:47] LABS: BASOPHILS # (AUTO) 0.1 (0.0-0.1); BASOPHILS % 1.5 % (0.0-1.0); EOSINOPHILS # (AUTO) 0.3 (0.0-0.4); EOSINOPHILS % 4.5 % (0.0-6.0); HEMATOCRIT 33.8 % (34.2-44.1); HEMOGLOBIN 10.9 g/dL (12.0-16.0); LYMPHOCYTES # (AUTO) 1.8 (1.0-3.2); LYMPHOCYTES % 30.2 % (18.0-39.1); MEAN CORPUSCULAR HEMOGLOBIN 28.2 pg (28-32); MEAN CORPUSCULAR HGB CONC 32.2 g/dL (31-35); MEAN CORPUSCULAR VOLUME 87.6 fL (81-99); MONOCYTES # (AUTO) 0.7 (0.2-0.8); MONOCYTES % 11.7 % (4.4-11.3); NEUTROPHILS # (AUTO) 3.1 (2.1-6.9); NEUTROPHILS % 51.8 % (38.7-80.0); PLATELET COUNT 201 x10e3/uL (140-360); RED BLOOD COUNT 3.86 x10e6/uL (3.6-5.1); RED CELL DISTRIBUTION WIDTH 13.2 % (11.7-14.4)
[2018-03-24 08:59] LABS: INR 0.98; PARTIAL THROMBOPLASTIN TIME 22.2 seconds (23.8-35.5); PROTHROMBIN TIME 12.2 seconds (11.9-14.5)
[2018-03-24 09:07] LABS: ALANINE AMINOTRANSFERASE 12 IU/L (0-55); ALBUMIN 3.4 g/dL (3.5-5.0); ALBUMIN/GLOBULIN RATIO 1.3 (0.8-2.0); ALKALINE PHOSPHATASE 56 IU/L (40-150); ANION GAP 12.2 mmol/L (8-16); BLOOD UREA NITROGEN 14 mg/dL (7-26); BUN/CREATININE RATIO 21 (6-25); CALCIUM 9.4 mg/dL (8.4-10.2); CARBON DIOXIDE 30 mmol/L (22-29); CHLORIDE 106 mmol/L (98-107); CREATINE KINASE 89 IU/L (29-168); CREATININE, SERUM 0.67 mg/dL (0.57-1.11); EST GLOMERULAR FILTRATION RATE > 60 ML/MIN (60-); GLUCOSE 99 mg/dL (74-118); MAGNESIUM 1.9 MG/DL (1.3-2.1); POTASSIUM 4.2 mmol/L (3.5-5.1); SODIUM 144 mmol/L (136-145)
[2018-03-24] MEDS ORDERED: ONDANSETRON HCL INJ 2 MG/ML VIAL IV STA (09:28)
[2018-03-24] MEDS ORDERED: ALBUTEROL/IPRATROPIUM 3 ML NEB NEB PRN (11:00)
[2018-03-24] MEDS ORDERED: SODIUM CHLORIDE FLUSH 10 ML SYR INJ PRN (11:00)
[2018-03-24] MEDS ORDERED: METOPROLOL TART50 MG PO (11:01)
[2018-03-24] MEDS ORDERED: PROMETHAZINE HC25 M1 PO (11:01)
[2018-03-24] MEDS ORDERED: FUROSEMIDE20 MG PO (11:01)
[2018-03-24 11:05] LABS: BILIRUBIN,URINE NEGATIVE (NEGATIVE); CLARITY,URINE SL CLOUDY (CLEAR); COLOR,URINE YELLOW (YELLOW); KETONES,URINE NEGATIVE (NEGATIVE); LEUKOCYTE ESTERASE ,URINE NEGATIVE (NEGATIVE); NITRITE,URINE NEGATIVE (NEGATIVE); PROTEIN,URINE DIPSTICK NEGATIVE (NEGATIVE); URINE UROBILINOGEN 0.2 mg/dL (0.2 - 1)
--- NOTE | 2018-03-24 11:08 | Diagnostic Imaging Report ---
PROCEDURE: A single AP view of the chest. COMPARISON: Chest 2 views 03/01/2018. INDICATIONS: COPD, DYSPNEA FINDINGS: Lines/tubes: None. Lungs: The lungs are well inflated and clear. There is no evidence of pneumonia or pulmonary edema. Bibasilar atelectasis. Pleura: There is no pleural effusion or pneumothorax. Heart and mediastinum: The heart and the mediastinum are unremarkable. Bones: No acute bony abnormality. IMPRESSION: No acute radiographic abnormality. Dictated by: Endy Mcmanus M.D. on 03/24/2018 at 11:09 Electronically approved by: Endy Mcmanus M.D. on 03/24/2018 at 11:09
[2018-03-24 11:17] LABS: BACTERIA,URINE FEW /HPF; EPITHELIAL CELLS,URINE MODERATE /LPF; RBC,URINE 0-5 /HPF (0-5)
[2018-03-24 11:30] LABS: ABG HCO3 31 mmol/L (23-28); ABG PCO2 56 mmHg (41-51); ABG PH 7.35 (7.31-7.41); ABG PO2 71 mmHg (80-105)
[2018-03-24] MEDS: CEFTRIAXONE SOD 1 GM VIAL IV SCH (12:47)
[2018-03-24] MEDS ORDERED: LORAZEPAM 1 MG TAB PO ONE (13:00)
[2018-03-24] MEDS: AZITHROMYCIN 500MG/NS 250 ML 250 ML IV SCH (13:01)
[2018-03-24] MEDS ORDERED: ONDANSETRON HCL 4 MG ORAL DISINTEGRATING TAB PO ONE (14:00)
[2018-03-24 17:20] VITALS: BP 156/81
[2018-03-24 17:33] VITALS: BP 156/81
[2018-03-24 17:52] LABS: CREATINE KINASE 87 IU/L (29-168)
[2018-03-24] MEDS: METOPROLOL TARTRATE 50 MG TAB PO SCH (18:21)
[2018-03-24] MEDS: ONDANSETRON HCL 4 MG ORAL DISINTEGRATING TAB PO PRN (18:22)
[2018-03-24] MEDS: HYDROCODONE/APAP 5MG-325MG TAB PO PRN (19:49)
[2018-03-24 20:00] VITALS: BP 159/85
[2018-03-24] MEDS: ALBUTEROL/IPRATROPIUM 3 ML NEB NEB SCH (20:09)
[2018-03-24] MEDS: METHYLPREDNISOLONE SOD SUCC 40 MG/ML VIAL IV SCH (20:58)
[2018-03-24] MEDS: MIRTAZAPINE 15 MG TAB PO SCH (22:07)
[2018-03-24] MEDS: TEMAZEPAM 15 MG CAP PO PRN (22:08)
[2018-03-24] MEDS ORDERED: MIRTAZAPINE 15 MG TAB ONE (22:10)
[2018-03-24] MEDS ORDERED: TEMAZEPAM 15 MG CAP ONE (22:10)
[2018-03-25] VITALS: BP 149/85
[2018-03-25 01:40] LABS: CREATINE KINASE 78 IU/L (29-168)
[2018-03-25] MEDS: ALBUTEROL/IPRATROPIUM 3 ML NEB NEB SCH ×3 (02:32→20:40)
[2018-03-25 06:28] LABS: BASOPHILS % 0.2 % (0.0-1.0); HEMATOCRIT 33.1 % (34.2-44.1); HEMOGLOBIN 10.5 g/dL (12.0-16.0); LYMPHOCYTES # (AUTO) 0.8 (1.0-3.2); LYMPHOCYTES % 12.8 % (18.0-39.1); MEAN CORPUSCULAR HEMOGLOBIN 27.9 pg (28-32); MEAN CORPUSCULAR HGB CONC 31.7 g/dL (31-35); MEAN CORPUSCULAR VOLUME 87.8 fL (81-99); MONOCYTES # (AUTO) 0.2 (0.2-0.8); MONOCYTES % 2.7 % (4.4-11.3); NEUTROPHILS # (AUTO) 5.2 (2.1-6.9); PLATELET COUNT 201 x10e3/uL (140-360); RED BLOOD COUNT 3.77 x10e6/uL (3.6-5.1); RED CELL DISTRIBUTION WIDTH 13.2 % (11.7-14.4)
[2018-03-25 06:54] LABS: ANION GAP 12.3 mmol/L (8-16); BLOOD UREA NITROGEN 14 mg/dL (7-26); BUN/CREATININE RATIO 20 (6-25); CALCIUM 9.6 mg/dL (8.4-10.2); CARBON DIOXIDE 30 mmol/L (22-29); CHLORIDE 106 mmol/L (98-107); CREATININE, SERUM 0.69 mg/dL (0.57-1.11); EST GLOMERULAR FILTRATION RATE > 60 ML/MIN (60-); GLUCOSE 138 mg/dL (74-118); POTASSIUM 4.3 mmol/L (3.5-5.1); SODIUM 144 mmol/L (136-145)
--- NOTE | 2018-03-25 07:04 | Diagnostic Imaging Report ---
EXAMINATION: CHEST SINGLE (PORTABLE) INDICATION: COPD. COMPARISON: 03/24/2018 FINDINGS: TUBES and LINES: None. LUNGS: Lungs are well inflated. Calcified granuloma in the left midlung bibasilar atelectasis and central vascular congestion. PLEURA: No pleural effusion or pneumothorax. HEART AND MEDIASTINUM: The cardiomediastinal silhouette is unremarkable. BONES AND SOFT TISSUES: No acute osseous lesion. Soft tissues are unremarkable. UPPER ABDOMEN: No free air under the diaphragm. IMPRESSION: No acute thoracic abnormality. Signed by: Dr. Clement Person M.D. on 03/25/2018 7:01 AM
[2018-03-25 08:04] VITALS: BP 144/83
[2018-03-25] MEDS: HYDROCODONE/APAP 5MG-325MG TAB PO PRN ×2 (08:20→16:52)
[2018-03-25] MEDS ORDERED: PANTOPRAZOLE SOD 40 MG TABEC ONE (08:20)
[2018-03-25] MEDS: PANTOPRAZOLE SOD 40 MG TABEC PO SCH (08:36)
[2018-03-25] MEDS: METHYLPREDNISOLONE SOD SUCC 40 MG/ML VIAL IV SCH ×2 (08:48→20:06)
[2018-03-25] MEDS: METOPROLOL TARTRATE 50 MG TAB PO SCH ×2 (08:48→16:50)
[2018-03-25] MEDS ORDERED: METOPROLOL TARTRATE 50 MG TAB PO SCH (09:00)
[2018-03-25 09:48] VITALS: BP 144/83
[2018-03-25] MEDS: ONDANSETRON HCL 4 MG ORAL DISINTEGRATING TAB PO PRN (11:02)
[2018-03-25] MEDS: AZITHROMYCIN 500MG/NS 250 ML 250 ML IV SCH (11:07)
[2018-03-25] MEDS: CEFTRIAXONE SOD 1 GM VIAL IV SCH (11:07)
[2018-03-25] MEDS ORDERED: SODIUM CHLORIDE 0.9% 250ML 250 ML ONE (11:08)
[2018-03-25] MEDS ORDERED: ALBUTEROL/IPRATROPIUM 3 ML NEB NEB SCH (15:00)
[2018-03-25 15:47] VITALS: BP 104/51
[2018-03-25] MEDS: ENOXAPARIN SOD INJ 40 MG/0.4 ML SYR SC SCH (16:50)
[2018-03-25] MEDS ORDERED: ALBUTEROL/IPRATROPIUM 3 ML NEB NEB STA (17:19)
[2018-03-25 19:10] VITALS: BP 132/66
[2018-03-25 19:41] VITALS: BP 132/66
[2018-03-25] MEDS: MIRTAZAPINE 15 MG TAB PO SCH (20:06)
[2018-03-25] MEDS: TEMAZEPAM 15 MG CAP PO PRN (21:09)
[2018-03-26] VITALS (8 sets, daily range): BP systolic 130–161; BP diastolic 62–85
[2018-03-26] MEDS: ALBUTEROL/IPRATROPIUM 3 ML NEB NEB SCH ×6 (00:50→22:58)
[2018-03-26] MEDS: HYDROCODONE/APAP 5MG-325MG TAB PO PRN ×3 (01:42→17:57)
[2018-03-26 07:12] LABS: BASOPHILS % 0.1 % (0.0-1.0); HEMATOCRIT 30.9 % (34.2-44.1); HEMOGLOBIN 9.7 g/dL (12.0-16.0); MEAN CORPUSCULAR HEMOGLOBIN 28.6 pg (28-32); MEAN CORPUSCULAR HGB CONC 31.4 g/dL (31-35); MEAN CORPUSCULAR VOLUME 91.2 fL (81-99); MONOCYTES # (AUTO) 0.9 (0.2-0.8); MONOCYTES % 7.5 % (4.4-11.3); NEUTROPHILS # (AUTO) 9.4 (2.1-6.9); NEUTROPHILS % 82.9 % (38.7-80.0); PLATELET COUNT 233 x10e3/uL (140-360); RED BLOOD COUNT 3.39 x10e6/uL (3.6-5.1); RED CELL DISTRIBUTION WIDTH 13.4 % (11.7-14.4)
[2018-03-26 07:35] LABS: ANION GAP 10.8 mmol/L (8-16); BLOOD UREA NITROGEN 21 mg/dL (7-26); BUN/CREATININE RATIO 31 (6-25); CALCIUM 9.5 mg/dL (8.4-10.2); CARBON DIOXIDE 34 mmol/L (22-29); CHLORIDE 108 mmol/L (98-107); CREATININE, SERUM 0.68 mg/dL (0.57-1.11); EST GLOMERULAR FILTRATION RATE > 60 ML/MIN (60-); GLUCOSE 120 mg/dL (74-118); MAGNESIUM 2.2 MG/DL (1.3-2.1); POTASSIUM 4.8 mmol/L (3.5-5.1); SODIUM 148 mmol/L (136-145)
[2018-03-26] MEDS: METOPROLOL TARTRATE 50 MG TAB PO SCH ×2 (08:22→21:13)
[2018-03-26] MEDS: METHYLPREDNISOLONE SOD SUCC 40 MG/ML VIAL IV SCH ×2 (08:22→21:00)
[2018-03-26] MEDS: PANTOPRAZOLE SOD 40 MG TABEC PO SCH ×2 (08:22→17:57)
[2018-03-26] MEDS: DEXTROSE 5%/0.45% SOD CHL 1,000 ML IV ONE ×2 (09:45→11:30)
[2018-03-26] MEDS ORDERED: DOXYCYCLINE 100MG/NS 100ML 100 ML IV SCH (10:30)
[2018-03-26] MEDS ORDERED: CEFTRIAXONE SOD 1 GM VIAL IV SCH (11:00)
[2018-03-26] MEDS: AZITHROMYCIN 500MG/NS 250 ML 250 ML IV SCH (11:45)
[2018-03-26] MEDS: LORAZEPAM 1 MG TAB PO PRN (12:05)
[2018-03-26] MEDS: ENOXAPARIN SOD INJ 40 MG/0.4 ML SYR SC SCH (17:57)
[2018-03-26] MEDS: CEFTRIAXONE SOD 1 GM VIAL IV SCH (21:00)
[2018-03-26] MEDS: MIRTAZAPINE 15 MG TAB PO SCH (21:00)
[2018-03-26] MEDS: TEMAZEPAM 15 MG CAP PO PRN (21:13)
[2018-03-27] VITALS (42 sets, daily range): BP systolic 65–165; BP diastolic 34–108
[2018-03-27] MEDS: HYDROCODONE/APAP 5MG-325MG TAB PO PRN (00:08)
[2018-03-27] MEDS: ALBUTEROL/IPRATROPIUM 3 ML NEB NEB SCH ×6 (02:45→23:05)
[2018-03-27 07:27] LABS: BASOPHILS % 0.1 % (0.0-1.0); HEMATOCRIT 30.4 % (34.2-44.1); HEMOGLOBIN 9.6 g/dL (12.0-16.0); LYMPHOCYTES % 9.1 % (18.0-39.1); MEAN CORPUSCULAR HGB CONC 31.6 g/dL (31-35); MEAN CORPUSCULAR VOLUME 88.6 fL (81-99); MONOCYTES # (AUTO) 0.5 (0.2-0.8); MONOCYTES % 4.8 % (4.4-11.3); NEUTROPHILS # (AUTO) 9.4 (2.1-6.9); NEUTROPHILS % 85.2 % (38.7-80.0); PLATELET COUNT 220 x10e3/uL (140-360); RED BLOOD COUNT 3.43 x10e6/uL (3.6-5.1); RED CELL DISTRIBUTION WIDTH 13.2 % (11.7-14.4)
[2018-03-27 07:45] LABS: ANION GAP 14.1 mmol/L (8-16); BLOOD UREA NITROGEN 13 mg/dL (7-26); BUN/CREATININE RATIO 22 (6-25); CARBON DIOXIDE 27 mmol/L (22-29); CHLORIDE 105 mmol/L (98-107); CREATININE, SERUM 0.58 mg/dL (0.57-1.11); EST GLOMERULAR FILTRATION RATE > 60 ML/MIN (60-); GLUCOSE 128 mg/dL (74-118); MAGNESIUM 1.8 MG/DL (1.3-2.1); POTASSIUM 4.1 mmol/L (3.5-5.1); SODIUM 142 mmol/L (136-145)
[2018-03-27 07:56] LABS: B-TYPE NATRIURETIC PEPTIDE2 178.1 pg/mL (0-100)
[2018-03-27 08:09] LABS: FERRITIN 20.62 ng/mL (4.63-204.00)
[2018-03-27 08:22] LABS: FOLATE 12.8 ng/mL (7.0-15.4)
[2018-03-27] MEDS: PANTOPRAZOLE SOD 40 MG TABEC PO SCH ×2 (09:30→16:30)
[2018-03-27] MEDS: METOPROLOL TARTRATE 50 MG TAB PO SCH ×2 (09:30→21:00)
[2018-03-27] MEDS: CEFTRIAXONE SOD 1 GM VIAL IV SCH ×2 (10:10→22:04)
[2018-03-27] MEDS: METHYLPREDNISOLONE SOD SUCC 40 MG/ML VIAL IV SCH ×3 (10:10→22:05)
[2018-03-27] MEDS: AZITHROMYCIN 500MG/NS 250 ML 250 ML IV SCH (11:00)
[2018-03-27] MEDS ORDERED: FUROSEMIDE INJ 10 MG/ML 4 ML VIAL IV ONE (12:00)
[2018-03-27] MEDS ORDERED: ALBUTEROL/IPRATROPIUM 3 ML NEB ONE (14:14)
[2018-03-27] MEDS ORDERED: MIDAZOLAM HCL 2 MG/2 ML VIAL ONE ×2 (14:45→15:22)
[2018-03-27] MEDS ORDERED: PROPOFOL IV EMULSION 10MG/ML 100 ML IV PRN (14:45)
[2018-03-27] MEDS ORDERED: PROPOFOL IV EMULSION 10MG/ML 100 ML ONE (15:02)
--- NOTE | 2018-03-27 15:05 | Diagnostic Imaging Report ---
EXAMINATION: Chest, CHEST SINGLE (NOT PORTABLE) INDICATION: Chest pain COMPARISON: Portable chest 03/25/2018 FINDINGS: LINES: Endotracheal catheter is present with the tip projecting over the expected region of the trachea, positioned 1 cm from the sushma. Heart: Normal cardiac silhouette. Vascular: The pulmonary vasculature is within normal limits. Mediastinum: No mediastinal, hilar, or axillary mass or lymphadenopathy. Lungs: No parenchymal mass. No focal consolidation. Pleura: No pleural effusion. No pneumothorax. Bones: No acute osseous abnormality. Degenerative changes of the thoracic spine. Soft tissues: Normal. Impression: No acute radiographic abnormality. Signed by: Dr. Endy Mcmanus M.D. on 03/27/2018 3:01 PM
--- NOTE | 2018-03-27 15:19 | Operative Report ---
DATE OF PROCEDURE: March 27, 2018 REFERRING PHYSICIAN: Dr. Macie Anna PROCEDURE PERFORMED: Esophagogastroduodenoscopy. INDICATIONS FOR ESOPHAGOGASTRODUODENOSCOPY: Upper abdominal pain, nausea, bloating, positive occult blood in stool. MEDICATION: Patient was done under MAC. Please see anesthesiologist's note. PROCEDURE: With patient in the left lateral decubitus position, the flexible fiberoptic Olympus gastroscope was introduced into the esophagus under direct visualization without any difficulty. There was some patchy erythema noted in distal esophagus. The scope was then advanced with ease into the stomach traversing a moderate-sized hiatal hernia. Mucosa overlying the antrum and the body revealed some patchy erythema and low-grade to moderate edema and biopsies were obtained and sent to stain for H. pylori. Pylorus appeared to be of normal contour and shape. Was intubated with ease and the scope was advanced all the way to the 2nd portion of the duodenum. The scope was then withdrawn slowly. Mucosa overlying the proximal 2nd portion and the duodenal bulb appeared to be within normal limits. The scope was then withdrawn back into the stomach and retroflexed. Mucosa overlying the fundus and the cardia appeared to be within normal limits. The scope was then straightened out. The stomach was decompressed. Scope was subsequently withdrawn. Patient tolerated procedure well. IMPRESSION: 1. Distal esophagitis, mild. 2. Moderate-sized hiatal hernia. 3. Gastritis biopsied. Biopsy sent to stain for H. pylori. PLAN: Follow up histology. Continue Protonix 40 mg 1 p.o. a.c. b.i.d. Add Carafate 1 gram p.o. a.c. t.i.d. and nightly. Job#: [id number] cc:MACIE ANNA MD
[2018-03-27] MEDS ORDERED: SUCCINYLCHOLINE CHLORIDE 20 MG/ML 10ML VIAL ONE (15:22)
[2018-03-27] MEDS ORDERED: ETOMIDATE 40 MG/ 20ML VIAL IV ONE (15:22)
[2018-03-27] MEDS ORDERED: LIDOCAINE HCL 2% LOCAL INJ 5 ML SDV VIAL INJ ONE (15:26)
[2018-03-27] MEDS ORDERED: PROPOFOL IV EMULSION 10 MG/ML 50 ML VIAL ONE (15:26)
[2018-03-27 16:17] LABS: BASOPHILS % 0.1 % (0.0-1.0); HEMATOCRIT 34.6 % (34.2-44.1); HEMOGLOBIN 10.8 g/dL (12.0-16.0); LYMPHOCYTES # (AUTO) 1.9 (1.0-3.2); LYMPHOCYTES % 14.8 % (18.0-39.1); MEAN CORPUSCULAR HEMOGLOBIN 28.2 pg (28-32); MEAN CORPUSCULAR HGB CONC 31.2 g/dL (31-35); MEAN CORPUSCULAR VOLUME 90.3 fL (81-99); MONOCYTES # (AUTO) 0.3 (0.2-0.8); MONOCYTES % 2.6 % (4.4-11.3); NEUTROPHILS # (AUTO) 10.2 (2.1-6.9); NEUTROPHILS % 81.6 % (38.7-80.0); PLATELET COUNT 358 x10e3/uL (140-360); RED BLOOD COUNT 3.83 x10e6/uL (3.6-5.1); RED CELL DISTRIBUTION WIDTH 13.2 % (11.7-14.4)
[2018-03-27 16:22] LABS: INR 1.03; PROTHROMBIN TIME 12.7 seconds (11.9-14.5)
[2018-03-27 16:23] LABS: PARTIAL THROMBOPLASTIN TIME 23.4 seconds (23.8-35.5)
[2018-03-27] MEDS: SUCRALFATE 1 GM TAB PO SCH ×2 (16:30→21:00)
[2018-03-27 16:31] LABS: ALANINE AMINOTRANSFERASE 16 IU/L (0-55); ALBUMIN 3.4 g/dL (3.5-5.0); ALBUMIN/GLOBULIN RATIO 1.1 (0.8-2.0); ALKALINE PHOSPHATASE 47 IU/L (40-150); ANION GAP 19.4 mmol/L (8-16); BLOOD UREA NITROGEN 12 mg/dL (7-26); BUN/CREATININE RATIO 16 (6-25); CALCIUM 9.1 mg/dL (8.4-10.2); CARBON DIOXIDE 20 mmol/L (22-29); CHLORIDE 105 mmol/L (98-107); CREATINE KINASE 43 IU/L (29-168); CREATININE, SERUM 0.73 mg/dL (0.57-1.11); EST GLOMERULAR FILTRATION RATE > 60 ML/MIN (60-); GLUCOSE 314 mg/dL (74-118); POTASSIUM 4.4 mmol/L (3.5-5.1); SODIUM 140 mmol/L (136-145)
[2018-03-27] MEDS: ENOXAPARIN SOD INJ 40 MG/0.4 ML SYR SC SCH (17:00)
--- NOTE | 2018-03-27 17:17 | Diagnostic Imaging Report ---
EXAMINATION: Chest, CHEST SINGLE (PORTABLE) INDICATION: Chest pain COMPARISON: Portable chest 03/27/2018 FINDINGS: LINES: Right internal jugular temporary central venous catheter with tip projecting over the expected region of the superior vena cava. Endotracheal catheter is present with the tip projecting over the expected region of the trachea, positioned 1 cm from the sushma. Heart: Normal cardiac silhouette. Vascular: The pulmonary vasculature is within normal limits. Atherosclerotic calcifications of the aortic arch. Mediastinum: No mediastinal, hilar, or axillary mass or lymphadenopathy. Lungs: No parenchymal mass. No focal consolidation. Calcified granuloma in the left midlung region. Pleura: No pleural effusion. No pneumothorax. Bones: No acute osseous abnormality. Degenerative changes of the thoracic spine. Soft tissues: Contrast material is noted in the deep soft tissues tissues of the proximal right upper extremity. Impression: No acute radiographic abnormality. Correlate clinically for contrast in the deep soft tissues. Signed by: Dr. Endy Mcmanus M.D. on 03/27/2018 5:14 PM
[2018-03-27 17:34] LABS: ABG HCO3 34 mmol/L (23-28); ABG PCO2 61 mmHg (41-51); ABG PH 7.36 (7.31-7.41); ABG PO2 569 mmHg (80-105)
[2018-03-27] MEDS: DEXMEDETOMIDINE HCL 200 MCG in SODIUM CHLORIDE 0.9% 50ML 48 ML IV PRN (18:20)
[2018-03-27] MEDS ORDERED: SODIUM CHLORIDE 0.9% 50ML 50 ML ONE (18:24)
[2018-03-27] MEDS ORDERED: IOPAMIDOL 370 MG/ML 200 ML INFUS..BTL INJ ONE ×2 (18:24→21:22)
--- NOTE | 2018-03-27 19:53 | Consultation ---
DATE OF CONSULTATION: March 27, 2018 PULMONARY CRITICAL CARE MEDICINE CONSULT REFERRING PHYSICIAN: Dr. Anna. REASON FOR REFERRAL: Respiratory failure. HISTORY: Ms. Erickson is a pleasant, 57-year-old female with respiratory failure. The patient is well known due to multiple health care encounters to physicians with COPD. The patient was admitted for nonspecific GI issues and shortness of breath on March 24, 2018. The patient was having some stomach distention. She was having some shortness of breath resulting from this. Reported cough as well. The patient went for endoscopy today, which showed some distal gastritis on EGD, but was otherwise reportedly unremarkable. However, after the procedure during recovery time the patient was turned slightly on her side and she was becoming apneic. At that point, she was emergently intubated, and she never lost her pulse. The patient was noted to be ill, and I was consulted for assistance. PAST MEDICAL HISTORY: Hypertension, COPD, hyperlipidemia. MEDICATIONS: Medication list reviewed per electronic record. ALLERGIES: REVIEWED PER ELECTRONIC RECORD. SOCIAL HISTORY: She said that she quit smoking 8 years ago. Otherwise, unknown due to her active intubation. FAMILY HISTORY: Unknown, but not known how it can be contributory here. REVIEW OF SYSTEMS: Cannot get as she is intubated. PHYSICAL EXAMINATION VITAL SIGNS: The patient is afebrile. Vital signs have been recovered per electronic record. GENERAL: In no apparent distress, on the ventilator, on propofol for deep sedation. LUNGS: Decreased air entry bilaterally. Very limited evaluation. ABDOMEN: Distended but soft, slightly tympanic. EXTREMITIES: Noted trace edema. LABORATORY DATA: Reviewed per electronic record. IMPRESSION AND PLAN 1. Acute respiratory failure, intubated. 2. Stomach distention/dyspepsia, status post esophagogastroduodenoscopy. 3. Poor venous access. 4. Chronic obstructive pulmonary disease with exacerbation. 5. Hypertension. 6. Hyperlipidemia. 7. Former smoker. At this time, will continue to follow up closely. CT angiography was requested. The patient also has poor IV access and central line indication was requested emergently. The patient to continue on steroids. Bronchodilators. Will follow up after imaging. The patient is in critical condition. Greater than 30 minutes spent in direct care here. Multiple coordinations performed, combined including procedures. Job#: [id number]
--- NOTE | 2018-03-27 20:55 | Diagnostic Imaging Report ---
EXAM: CT Chest WITH contrast 03/27/2018 3:10 PM INDICATION: Pulmonary embolism COMPARISON: Chest x-ray on 03/27/2018 TECHNIQUE: Chest was scanned utilizing a multidetector helical scanner from the lung apex through the level of the diaphragm after administration of IV contrast. Thin section reconstructions were obtained with special concentration on the pulmonary arteries. Coronal and sagittal reformations were obtained. Pulmonary embolism protocol was performed. IV CONTRAST: 20 cc of Isovue-370 RADIATION DOSE: Total DLP: 511.83 mGy*cm Estimated effective dose: (DLP x 0.014 x size factor) mSv COMPLICATIONS: None FINDINGS: LINES/ TUBES: Endotracheal tube is visualized in good position with tip 2 cm above the sushma. Left IJ central line catheter with tip within the atrial caval junction. LUNGS AND AIRWAYS: No filling defect is identified within the pulmonary arteries to the segmental level. There is evidence of centrilobular and paraseptal emphysema with upper lobe predominance. Airways are normal. PLEURA: The pleural spaces are clear. HEART AND MEDIASTINUM: The thyroid gland is normal. No mediastinal, hilar or axillary lymphadenopathy. The heart is normal in size.. There is no pericardial effusion. There are mild atherosclerotic calcifications in the aorta and coronary arteries.. Main pulmonary artery measures 2.4 centimeters in diameter , within normal limits. UPPER ABDOMEN: Limited non-contrast views of the upper abdomen show no abnormality within the visualized liver, spleen, pancreas, or kidneys. The adrenal glands are normal. BONES: The visualized bony thorax is within normal limits. Diffuse demineralization. SOFT TISSUES: There is extensive contrast extravasation noted in the region of the right shoulder girdle and axilla with contrast posterior to the pectoralis major and anterior to the pectoralis minor, subscapularis and brachial compartment IMPRESSION: 1. No evidence of pulmonary embolism. 2. Centrilobular and paraseptal emphysema. 3. Extensive right upper extremity and right chest contrast extravasation. The volume was not specified in the technology notes. However per tech notes, Dr Hutton is aware of the extravasation. Signed by: Dr. Clement Person M.D. on 03/27/2018 8:52 PM
[2018-03-27] MEDS: MIRTAZAPINE 15 MG TAB PO SCH (21:00)
[2018-03-27] MEDS ORDERED: LORAZEPAM INJ 2 MG/ML VIAL IV PRN (21:30)
[2018-03-27] MEDS ORDERED: ENALAPRILAT IV INJ 1.25 MG/ML VIAL IV PRN (21:30)
[2018-03-27] MEDS ORDERED: METOPROLOL TARTRATE INJ 1 MG/ML VIAL IV PRN (21:30)
[2018-03-27] MEDS: HYDROMORPHONE 1MG/1ML INJ IV PRN (21:45)
[2018-03-27] MEDS: PANTOPRAZOLE 40 MG 10ML VIAL IV SCH (22:05)
[2018-03-27 22:17] LABS: BASOPHILS % 0.1 % (0.0-1.0); HEMATOCRIT 31.1 % (34.2-44.1); LYMPHOCYTES # (AUTO) 1.3 (1.0-3.2); LYMPHOCYTES % 8.1 % (18.0-39.1); MEAN CORPUSCULAR HEMOGLOBIN 28.4 pg (28-32); MEAN CORPUSCULAR HGB CONC 32.2 g/dL (31-35); MEAN CORPUSCULAR VOLUME 88.4 fL (81-99); MONOCYTES # (AUTO) 1.6 (0.2-0.8); MONOCYTES % 10.2 % (4.4-11.3); NEUTROPHILS # (AUTO) 12.6 (2.1-6.9); NEUTROPHILS % 80.8 % (38.7-80.0); PLATELET COUNT 267 x10e3/uL (140-360); RED BLOOD COUNT 3.52 x10e6/uL (3.6-5.1); RED CELL DISTRIBUTION WIDTH 13.6 % (11.7-14.4)
[2018-03-27 22:22] LABS: INR 1.04; PROTHROMBIN TIME 12.8 seconds (11.9-14.5)
[2018-03-27 22:23] LABS: PARTIAL THROMBOPLASTIN TIME 23.8 seconds (23.8-35.5)
--- NOTE | 2018-03-27 23:41 | Operative Report ---
DATE OF PROCEDURE: March 27, 2018 PROCEDURE: Central line placement. INDICATIONS: Respiratory failure, polypharmacy needs. CONSENT: Informed via phone from significant other as we could not reach other family members. ANESTHESIA: Lidocaine 1%, 2.5 mL local. FINDINGS: Using ultrasound guidance, the left internal jugular vein was noted and found. Via reverse Seldinger technique, the left internal jugular was cannulated and triple lumen catheter was inserted up to the hub. It was a 16 cm catheter noting that the site selection was made after using old CAT scan after noting the right side had a little bit more apical emphysema than the left side. At this point, the central line was secured and flushed and capped. COMPLICATIONS: None. Chest x-ray pending. ESTIMATED BLOOD LOSS: 5 mL. IMPRESSION: Ultrasound-guided procedure. Central venous catheter placement. Job#: [id number] GH
[2018-03-28] VITALS (81 sets, daily range): BP systolic 78–152; BP diastolic 53–94
[2018-03-28] MEDS: FENTANYL CITRATE/PF 100MCG/2 ML INJ IV PRN ×2 (01:53→05:23)
[2018-03-28] MEDS: ALBUTEROL/IPRATROPIUM 3 ML NEB NEB SCH ×6 (03:00→23:05)
[2018-03-28] MEDS: DEXMEDETOMIDINE HCL 200 MCG in SODIUM CHLORIDE 0.9% 50ML 48 ML IV PRN (03:02)
[2018-03-28] MEDS: METHYLPREDNISOLONE SOD SUCC 40 MG/ML VIAL IV SCH ×2 (05:50→14:05)
[2018-03-28 06:36] LABS: BASOPHILS % 0.1 % (0.0-1.0); HEMATOCRIT 29.8 % (34.2-44.1); HEMOGLOBIN 9.3 g/dL (12.0-16.0); LYMPHOCYTES # (AUTO) 0.6 (1.0-3.2); LYMPHOCYTES % 5.4 % (18.0-39.1); MEAN CORPUSCULAR HGB CONC 31.2 g/dL (31-35); MEAN CORPUSCULAR VOLUME 89.8 fL (81-99); MONOCYTES # (AUTO) 0.7 (0.2-0.8); MONOCYTES % 6.3 % (4.4-11.3); NEUTROPHILS # (AUTO) 10.4 (2.1-6.9); NEUTROPHILS % 87.7 % (38.7-80.0); PLATELET COUNT 235 x10e3/uL (140-360); RED BLOOD COUNT 3.32 x10e6/uL (3.6-5.1); RED CELL DISTRIBUTION WIDTH 13.5 % (11.7-14.4)
--- NOTE | 2018-03-28 06:40 | Diagnostic Imaging Report ---
EXAMINATION: CHEST SINGLE (PORTABLE) INDICATION: Respiratory failure COMPARISON: 03/27/2018 FINDINGS: TUBES and LINES: Endotracheal, nasogastric tube and left IJ central line catheter are in good position. LUNGS: Lungs are well inflated. Lungs are clear. There is mild prominence of the central pulmonary vasculature, consistent with pulmonary venous congestion. PLEURA: No pleural effusion or pneumothorax. HEART AND MEDIASTINUM: The cardiomediastinal silhouette is unremarkable. BONES AND SOFT TISSUES: No acute osseous lesion. Soft tissues are unremarkable. UPPER ABDOMEN: No free air under the diaphragm. IMPRESSION: No acute thoracic abnormality. Signed by: Dr. Clement Person M.D. on 03/28/2018 6:36 AM
[2018-03-28 06:51] LABS: ANION GAP 16.7 mmol/L (8-16); BLOOD UREA NITROGEN 21 mg/dL (7-26); BUN/CREATININE RATIO 27 (6-25); CALCIUM 9.1 mg/dL (8.4-10.2); CARBON DIOXIDE 29 mmol/L (22-29); CHLORIDE 104 mmol/L (98-107); CREATININE, SERUM 0.78 mg/dL (0.57-1.11); EST GLOMERULAR FILTRATION RATE > 60 ML/MIN (60-); GLUCOSE 167 mg/dL (74-118); POTASSIUM 3.7 mmol/L (3.5-5.1); SODIUM 146 mmol/L (136-145)
[2018-03-28] MEDS ORDERED: SODIUM CHLORIDE 0.9% 1000ML 1,000 ML IV SCH (07:45)
[2018-03-28 07:59] LABS: ALBUMIN 3.3 g/dL (3.5-5.0); BILIRUBIN,DIRECT 0.1 mg/dL (0.0-0.5)
[2018-03-28] MEDS: CEFTRIAXONE SOD 1 GM VIAL IV SCH ×2 (08:29→21:00)
[2018-03-28] MEDS: PANTOPRAZOLE 40 MG 10ML VIAL IV SCH (08:29)
[2018-03-28] MEDS: METOPROLOL TARTRATE 50 MG TAB PO SCH ×2 (09:00→22:25)
[2018-03-28 11:01] LABS: BILIRUBIN,URINE NEGATIVE (NEGATIVE); CLARITY,URINE HAZY (CLEAR); COLOR,URINE YELLOW (YELLOW); KETONES,URINE NEGATIVE (NEGATIVE); LEUKOCYTE ESTERASE ,URINE NEGATIVE (NEGATIVE); NITRITE,URINE NEGATIVE (NEGATIVE); PROTEIN,URINE DIPSTICK NEGATIVE (NEGATIVE); URINE UROBILINOGEN 0.2 mg/dL (0.2 - 1)
[2018-03-28 11:21] LABS: ABG HCO3 33 mmol/L (23-28); ABG PCO2 47 mmHg (41-51); ABG PH 7.45 (7.31-7.41); ABG PO2 176 mmHg (80-105)
[2018-03-28 11:31] LABS: WBC,URINE (MAN) 0-5 /HPF (0-5)
[2018-03-28 11:32] LABS: EPITHELIAL CELLS,URINE FEW /LPF
[2018-03-28] MEDS: AZITHROMYCIN 500MG/NS 250 ML 250 ML IV SCH (11:59)
[2018-03-28] MEDS: HYDROMORPHONE 1MG/1ML INJ IV PRN ×2 (13:55→18:20)
--- NOTE | 2018-03-28 15:56 | Progress Note ---
DATE: March 28, 2018 PULMONARY MEDICINE PROGRESS NOTE SUBJECTIVE: Ms. Erickson was seen and examined at [facility]. She continues to have improvement compared to yesterday. She was on the ventilator in the morning. She was on sedation. We continued some dexmedetomidine due to the previous history of decompensation for partially unclear reasons. However, today we gave her trial of extubation without any untoward event. The patient has 98% oxygen saturation on 2 liters per minute per nasal cannula after extubation. She did have some complicating hematuria yesterday for which the patient received a Berg catheter, but this has since cleared up for the most part. REVIEW OF SYSTEMS: No bleeding, no rash. OBJECTIVE VITAL SIGNS: Afebrile. Vital signs noted per the chart record. GENERAL: In no apparent distress, alert and calm. Still on Precedex after extubation. HEENT: Normocephalic, atraumatic. NECK: Supple. Throat midline. LUNGS: Bilateral air entry, few decreased breath sounds throughout, very difficult to hear other breath sounds. CARDIOVASCULAR: S1 and S2 and no murmurs, rubs or gallops. ABDOMEN: Soft and nontender. EXTREMITIES: No clubbing or cyanosis. There is no edema. INTEGUMENT: No rash, no purpura. LABORATORY DATA: Potassium 3.7, BUN ____, creatinine 0.8, white count 12, hematocrit 29, platelets 235,000. Chest x-ray was clear. IMPRESSION 1. Acute respiratory failure, intubated and extubated. 2. Chronic obstructive pulmonary disease with exacerbation. 3. Complicated hematuria, hopefully resolved. 4. Postoperative state, status post esophagogastroduodenoscopy endoscopy. 5. Other medical issues. PLAN: The patient was extubated earlier today. Continue to wean down with dexmedetomidine. We have p.r.n. medicines and we will be titrating as safe here in the ICU. Continue Precedex for the short term and wean it down due to prophylaxis. Will follow along closely. Continue bronchodilators as needed. Will take down the steroids. Start diet later today. Job#: [id number]
--- NOTE | 2018-03-28 17:50 | Consultation ---
DATE OF CONSULTATION: March 28, 2018 REASON FOR CONSULTATION: Gross hematuria. HISTORY OF PRESENT ILLNESS: Ms. Erickson is a very pleasant 57-year-old female admitted to the hospital with COPD flare. She had been intubated, and it was noticed that she was having gross hematuria after anticoagulation for question of deep venous thrombosis, pulmonary embolus. The patient is now awake, extubated. Denies dysuria. Berg catheter is indwelling, draining clear urine now with blood clots in the bottom of the bag. PAST MEDICAL HISTORY: As above with COPD, CHF, hypertension, anxiety, insomnia, gastroesophageal reflux disease, status post right breast cyst lumpectomy and osteoarthritis. MEDICATIONS: Please see MAR. ALLERGIES: MORPHINE. SOCIAL HISTORY: Denied smoking or drinking. FAMILY HISTORY: Denied urologic stones or malignancies. REVIEW OF SYSTEMS: Noncontributory other than problems listed above. PHYSICAL EXAMINATION: VITALS: Temperature 98.4, pulse , respirations 18, blood pressure 195/141. HEENT: Sclerae anicteric. NECK: Supple. BACK: Without costovertebral angle tenderness bilaterally. ABDOMEN: Soft, nontender, nondistended. No masses. No palpable hernias. No palpable lymphadenopathy. : Normal female external genitalia. EXTREMITIES: No edema. : Berg catheter draining clear urine. Blood clots in the bottom. NEURO: Moves 4 extremities. PSYCH: Alert and oriented. SKIN: Intact. Normal color. PERTINENT LABORATORY DATA: Sodium 146. Potassium 3.7, chloride 104. Bicarb 29. BUN 21. Creatinine 0.78. Glucose 167. Hemoglobin 9.3, hematocrit 29.8, platelet count 235,000. White blood cell count 11,800. PT 12.8. PTT of 23.8. Urinalysis 11 to 20 reds, 6 to 10 whites. IMPRESSION: 1. Gross hematuria. 2. Coagulopathy. 3. Anemia. 4. Hypertension. 5. Question urinary tract infection. PLAN: The patient just had a CT angiogram of the chest. We will perform a CT of the abdomen and pelvis with hematuria protocol once the contrast has passed through. Will defer the anemia and hypertension to the primary service. For the question of urinary tract infection, withhold anticoagulation until elective cystoscopy can be performed as an outpatient. Thank you for allowing me to participate in the care of your patient. Will be happy to follow her along with you. Job#: [id number] GH
[2018-03-28] MEDS: PANTOPRAZOLE SOD 40 MG TABEC PO SCH (18:00)
[2018-03-28] MEDS: SUCRALFATE 1 GM TAB PO SCH ×2 (18:00→21:00)
[2018-03-28] MEDS: MIRTAZAPINE 15 MG TAB PO SCH (21:00)
[2018-03-28] MEDS ORDERED: IOPAMIDOL 370 MG/ML 200 ML INFUS..BTL INJ ONE (21:12)
[2018-03-28] MEDS ORDERED: SODIUM CHLORIDE 0.9% 250ML 250 ML ONE (21:13)
[2018-03-29] VITALS (91 sets, daily range): BP systolic 117–179; BP diastolic 66–111
[2018-03-29] MEDS: HYDROMORPHONE 1MG/1ML INJ IV PRN ×2 (02:24→08:43)
[2018-03-29] MEDS: ALBUTEROL/IPRATROPIUM 3 ML NEB NEB SCH ×6 (03:07→23:05)
[2018-03-29 06:08] LABS: BASOPHILS % 0.1 % (0.0-1.0); EOSINOPHILS % 0.1 % (0.0-6.0); HEMATOCRIT 27.2 % (34.2-44.1); HEMOGLOBIN 8.5 g/dL (12.0-16.0); LYMPHOCYTES # (AUTO) 1.6 (1.0-3.2); LYMPHOCYTES % 15.7 % (18.0-39.1); MEAN CORPUSCULAR HEMOGLOBIN 27.9 pg (28-32); MEAN CORPUSCULAR HGB CONC 31.3 g/dL (31-35); MEAN CORPUSCULAR VOLUME 89.2 fL (81-99); MONOCYTES % 10.1 % (4.4-11.3); NEUTROPHILS # (AUTO) 7.3 (2.1-6.9); NEUTROPHILS % 72.7 % (38.7-80.0); PLATELET COUNT 220 x10e3/uL (140-360); RED BLOOD COUNT 3.05 x10e6/uL (3.6-5.1); RED CELL DISTRIBUTION WIDTH 13.5 % (11.7-14.4)
[2018-03-29] MEDS: HYDRALAZINE HCL 20 MG/ML VIAL IV PRN (08:00)
[2018-03-29] MEDS: METOPROLOL TARTRATE 50 MG TAB PO SCH ×2 (08:00→22:10)
[2018-03-29] MEDS ORDERED: PREDNISONE 20 MG TAB PO SCH (09:00)
[2018-03-29] MEDS: SUCRALFATE 1 GM TAB PO SCH ×4 (09:47→22:10)
[2018-03-29] MEDS: CEFTRIAXONE SOD 1 GM VIAL IV SCH ×2 (09:47→21:00)
[2018-03-29] MEDS: PANTOPRAZOLE SOD 40 MG TABEC PO SCH ×2 (09:47→18:41)
[2018-03-29] MEDS: LORAZEPAM 1 MG TAB PO PRN (11:07)
[2018-03-29] MEDS: AZITHROMYCIN 500MG/NS 250 ML 250 ML IV SCH (11:07)
[2018-03-29] MEDS: ONDANSETRON HCL 4 MG ORAL DISINTEGRATING TAB PO PRN (12:00)
[2018-03-29] MEDS: HYDROCODONE/APAP 5MG-325MG TAB PO PRN ×2 (15:51→22:11)
--- NOTE | 2018-03-29 21:58 | Progress Note ---
DATE: March 29, 2018 PULMONARY MEDICINE PROGRESS NOTE SUBJECTIVE: Ms. Erickson was seen and examined at beside. She is breathing via nasal cannula currently, which is her home dose. She also has low-functioning endurance. Some phlegm starting to come up. She a little. She does expect to have bowel movement soon. Berg came out and she is ready to void. REVIEW OF SYSTEMS: No headaches, no rash. OBJECTIVE VITAL SIGNS: Afebrile. Vital signs noted per electronic record. GENERAL: In no acute distress, alert and calm. HEENT: Normocephalic, atraumatic. NECK: Supple. Throat midline. LUNGS: Bilateral air entry, few rare rhonchi, mostly limited due to decreased breath sounds. CARDIOVASCULAR: S1, S2. No murmurs, rubs or gallops. ABDOMEN: Soft, nontender. EXTREMITIES: No clubbing or cyanosis. There is no edema. INTEGUMENT: No rash or purpura. LABS: 21 BUN, 0.8 creatinine, 10 white count, 27 hematocrit, 220,000 platelets. IMPRESSIONS AND PLAN 1. Acute respiratory failure, intubated and extubated. 2. Chronic obstructive pulmonary disease with exacerbation. 3. Weakness. 4. 5. Insomnia. PLAN: Continue current treatment at this time. We are going to continue encourage fluid intake. Diet has been escalated. PT evaluation was requested for tomorrow. Continue steroids and will be weaning this. Continue bronchodilators. Will follow up closely. Job#: [id number]
[2018-03-29] MEDS: MIRTAZAPINE 15 MG TAB PO SCH (22:11)
[2018-03-30] VITALS (34 sets, daily range): BP systolic 113–168; BP diastolic 67–116
[2018-03-30] MEDS: LORAZEPAM 1 MG TAB PO PRN (02:30)
[2018-03-30] MEDS: ALBUTEROL/IPRATROPIUM 3 ML NEB NEB SCH ×6 (03:08→23:47)
[2018-03-30] MEDS: HYDROCODONE/APAP 5MG-325MG TAB PO PRN ×3 (06:24→18:06)
[2018-03-30] MEDS: SUCRALFATE 1 GM TAB PO SCH ×4 (08:29→21:15)
[2018-03-30] MEDS: PANTOPRAZOLE SOD 40 MG TABEC PO SCH ×2 (08:29→17:15)
[2018-03-30] MEDS: CEFTRIAXONE SOD 1 GM VIAL IV SCH ×2 (08:29→21:15)
[2018-03-30] MEDS: METOPROLOL TARTRATE 50 MG TAB PO SCH ×2 (08:30→21:15)
[2018-03-30] MEDS: PREDNISONE 20 MG TAB PO SCH (08:30)
[2018-03-30] MEDS: ONDANSETRON HCL 4 MG ORAL DISINTEGRATING TAB PO PRN (09:55)
[2018-03-30] MEDS: AZITHROMYCIN 500MG/NS 250 ML 250 ML IV SCH (11:12)
[2018-03-30 13:56] LABS: BASOPHILS % 0.2 % (0.0-1.0); EOSINOPHILS # (AUTO) 0.1 (0.0-0.4); EOSINOPHILS % 0.9 % (0.0-6.0); HEMATOCRIT 29.4 % (34.2-44.1); HEMOGLOBIN 9.1 g/dL (12.0-16.0); LYMPHOCYTES # (AUTO) 0.9 (1.0-3.2); MEAN CORPUSCULAR HEMOGLOBIN 28.1 pg (28-32); MEAN CORPUSCULAR VOLUME 90.7 fL (81-99); MONOCYTES # (AUTO) 0.3 (0.2-0.8); MONOCYTES % 3.3 % (4.4-11.3); NEUTROPHILS # (AUTO) 7.2 (2.1-6.9); NEUTROPHILS % 83.6 % (38.7-80.0); PLATELET COUNT 233 x10e3/uL (140-360); RED BLOOD COUNT 3.24 x10e6/uL (3.6-5.1); RED CELL DISTRIBUTION WIDTH 13.6 % (11.7-14.4)
--- NOTE | 2018-03-30 13:59 | Progress Note ---
DATE: March 30, 2018 PULMONARY MEDICINE PROGRESS NOTE SUBJECTIVE: Ms. Erickson was seen and examined at beside. She continues to have some low functional endurance. She was able to walk around in the room, however. She was able to use a walker to walk. She is back on 2 L per minute by nasal cannula. She is eating back at baseline, which is slightly decreased. REVIEW OF SYSTEMS: No headaches. No rash. OBJECTIVE VITAL SIGNS: Afebrile. Vital signs noted per electronic record. GENERAL: In no acute distress, alert and calm. HEENT: Normocephalic, atraumatic. NECK: Supple. Throat midline. LUNGS: Bilateral air entry, decreased breath sounds throughout, rare rhonchi. CARDIOVASCULAR: S1, S2. No murmurs, rubs or gallops. ABDOMEN: Soft, nontender. EXTREMITIES: No clubbing. No cyanosis. There is no edema. INTEGUMENT: No rash or purpura. IMPRESSIONS AND PLAN 1. Chronic obstructive pulmonary disease with exacerbation. 2. Acute respiratory failure, resolved. 3. Possible pulmonary hypertension. 4. Weakness, low functional endurance. Continue current treatment. Bronchodilators and steroids. Mobilize the patient. Can transfer from the ICU. Job#: [id number]
[2018-03-30 14:31] LABS: ALANINE AMINOTRANSFERASE 12 IU/L (0-55); ALBUMIN/GLOBULIN RATIO 1.2 (0.8-2.0); ALKALINE PHOSPHATASE 42 IU/L (40-150); ANION GAP 11.9 mmol/L (8-16); BLOOD UREA NITROGEN 21 mg/dL (7-26); BUN/CREATININE RATIO 30 (6-25); CALCIUM 8.4 mg/dL (8.4-10.2); CARBON DIOXIDE 31 mmol/L (22-29); CHLORIDE 104 mmol/L (98-107); CREATININE, SERUM 0.71 mg/dL (0.57-1.11); EST GLOMERULAR FILTRATION RATE > 60 ML/MIN (60-); GLUCOSE 248 mg/dL (74-118); POTASSIUM 3.9 mmol/L (3.5-5.1); SODIUM 143 mmol/L (136-145)
[2018-03-30] MEDS: MIRTAZAPINE 15 MG TAB PO SCH (21:15)
[2018-03-30] MEDS: TEMAZEPAM 15 MG CAP PO PRN (22:05)
[2018-03-31 00:15] VITALS: BP 149/55
[2018-03-31] MEDS: ALBUTEROL/IPRATROPIUM 3 ML NEB NEB SCH ×6 (03:15→23:53)
[2018-03-31] MEDS: HYDROCODONE/APAP 5MG-325MG TAB PO PRN ×2 (03:36→17:08)
[2018-03-31 04:00] VITALS: BP 147/77
[2018-03-31] MEDS: LORAZEPAM 1 MG TAB PO PRN ×2 (06:54→15:29)
[2018-03-31] MEDS: PANTOPRAZOLE SOD 40 MG TABEC PO SCH ×2 (06:54→17:08)
[2018-03-31 07:06] LABS: BASOPHILS % 0.4 % (0.0-1.0); EOSINOPHILS # (AUTO) 0.6 (0.0-0.4); EOSINOPHILS % 5.7 % (0.0-6.0); HEMATOCRIT 29.6 % (34.2-44.1); HEMOGLOBIN 9.3 g/dL (12.0-16.0); LYMPHOCYTES # (AUTO) 2.7 (1.0-3.2); LYMPHOCYTES % 26.7 % (18.0-39.1); MEAN CORPUSCULAR HEMOGLOBIN 28.5 pg (28-32); MEAN CORPUSCULAR HGB CONC 31.4 g/dL (31-35); MEAN CORPUSCULAR VOLUME 90.8 fL (81-99); MONOCYTES % 9.7 % (4.4-11.3); NEUTROPHILS # (AUTO) 5.5 (2.1-6.9); PLATELET COUNT 240 x10e3/uL (140-360); RED BLOOD COUNT 3.26 x10e6/uL (3.6-5.1); RED CELL DISTRIBUTION WIDTH 13.7 % (11.7-14.4)
[2018-03-31 07:33] LABS: ANION GAP 12.1 mmol/L (8-16); BLOOD UREA NITROGEN 17 mg/dL (7-26); BUN/CREATININE RATIO 27 (6-25); CALCIUM 8.6 mg/dL (8.4-10.2); CARBON DIOXIDE 34 mmol/L (22-29); CHLORIDE 105 mmol/L (98-107); CREATININE, SERUM 0.63 mg/dL (0.57-1.11); EST GLOMERULAR FILTRATION RATE > 60 ML/MIN (60-); GLUCOSE 88 mg/dL (74-118); POTASSIUM 3.1 mmol/L (3.5-5.1); SODIUM 148 mmol/L (136-145)
[2018-03-31 08:11] VITALS: BP 166/84
[2018-03-31] MEDS ORDERED: DEXTROSE 5%/0.45% SOD CHL 1,000 ML IV ONE (10:00)
[2018-03-31] MEDS ORDERED: POTASSIUM CHLORIDE 20 MEQ TAB CR PO NR (10:30)
[2018-03-31 10:50] VITALS: BP 166/84
[2018-03-31] MEDS: METOPROLOL TARTRATE 50 MG TAB PO SCH ×2 (10:50→21:19)
[2018-03-31] MEDS: PREDNISONE 20 MG TAB PO SCH (10:50)
[2018-03-31] MEDS: CEFTRIAXONE SOD 1 GM VIAL IV SCH ×2 (10:50→21:19)
[2018-03-31] MEDS: SUCRALFATE 1 GM TAB PO SCH ×4 (10:50→21:19)
[2018-03-31] MEDS: DOCUSATE SODIUM 100 MG CAP PO SCH ×2 (10:50→17:08)
[2018-03-31] MEDS: AMLODIPINE BESYLATE 10 MG TAB PO SCH (10:50)
[2018-03-31 12:00] VITALS: BP 171/91
[2018-03-31] MEDS: POLYETHYLENE GLYCOL 3350 17 GM PACK PO SCH (13:08)
--- NOTE | 2018-03-31 14:13 | Progress Note ---
DATE: March 31, 2018 PULMONARY MEDICINE PROGRESS NOTE SUBJECTIVE: Ms. Erickson was seen and examined at beside. She continues to have some early dyspnea and low functional endurance. However, she is feeling better. She is getting closer to normal. She is starting to eat better. She is still waiting for bowel movements, however. REVIEW OF SYSTEMS: No bleeding. No rash. OBJECTIVE VITAL SIGNS: Afebrile. Vital signs noted per electronic record. GENERAL: In no acute distress, alert and calm. HEENT: Normocephalic, atraumatic. NECK: Supple. Throat midline. LUNGS: Bilateral air entry, decreased breath sounds throughout, rare rhonchi. CARDIOVASCULAR: S1, S2. No murmurs, rubs or gallops. ABDOMEN: Soft, nontender. EXTREMITIES: No clubbing. No cyanosis. There is no edema. INTEGUMENT: No rash or purpura. LABS: Potassium 3.1, 0.9 creatinine, 10 white count, 27 hematocrit. IMPRESSION AND PLAN 1. Chronic obstructive pulmonary disease with exacerbation. 2. Acute respiratory failure, now extubated. 3. Weakness. 4. Admitted with subjective nausea and vomiting, now decreased bowel function, decreased bowel movements. At this time, will continue current care. Continue antibiotics. Await bowel movement. Continue prednisone weaning. Continue management psychiatrically. Continue PT and OT. Will follow up closely. Job#: [id number]
[2018-03-31] MEDS: HYDRALAZINE HCL 20 MG/ML VIAL IV PRN (17:08)
[2018-03-31 20:00] VITALS: BP 113/61
[2018-03-31] MEDS: MIRTAZAPINE 15 MG TAB PO SCH (21:19)
[2018-04-01] VITALS: BP 148/86
[2018-04-01 00:01] VITALS: BP 113/61
[2018-04-01] MEDS: HYDROCODONE/APAP 5MG-325MG TAB PO PRN ×2 (00:15→09:50)
[2018-04-01] MEDS: ALBUTEROL/IPRATROPIUM 3 ML NEB NEB SCH ×3 (02:20→11:00)
[2018-04-01] MEDS ORDERED: MAGNESIUM HYDROXIDE 30 ML UDC PO ONE (03:30)
[2018-04-01 06:10] LABS: BASOPHILS % 0.3 % (0.0-1.0); EOSINOPHILS # (AUTO) 0.7 (0.0-0.4); EOSINOPHILS % 5.9 % (0.0-6.0); HEMATOCRIT 28.9 % (34.2-44.1); LYMPHOCYTES # (AUTO) 3.1 (1.0-3.2); MEAN CORPUSCULAR HGB CONC 31.1 g/dL (31-35); MONOCYTES # (AUTO) 1.1 (0.2-0.8); MONOCYTES % 9.5 % (4.4-11.3); NEUTROPHILS # (AUTO) 6.6 (2.1-6.9); NEUTROPHILS % 55.4 % (38.7-80.0); PLATELET COUNT 272 x10e3/uL (140-360); RED BLOOD COUNT 3.21 x10e6/uL (3.6-5.1); RED CELL DISTRIBUTION WIDTH 13.8 % (11.7-14.4)
[2018-04-01 06:27] LABS: ANION GAP 10.5 mmol/L (8-16); BLOOD UREA NITROGEN 15 mg/dL (7-26); BUN/CREATININE RATIO 26 (6-25); CALCIUM 8.7 mg/dL (8.4-10.2); CARBON DIOXIDE 35 mmol/L (22-29); CHLORIDE 103 mmol/L (98-107); CREATININE, SERUM 0.57 mg/dL (0.57-1.11); EST GLOMERULAR FILTRATION RATE > 60 ML/MIN (60-); GLUCOSE 86 mg/dL (74-118); MAGNESIUM 1.9 MG/DL (1.3-2.1); POTASSIUM 3.5 mmol/L (3.5-5.1); SODIUM 145 mmol/L (136-145)
[2018-04-01 07:40] VITALS: BP 156/83
[2018-04-01 08:31] LABS: ANISOCYTOSIS SLIGHT; EOSINOPHILS % (MANUAL) 9 % (0-7); HYPOCHROMASIA SLIGHT; LYMPHOCYTES % (MANUAL) 31 % (19-48); MONOCYTES % (MANUAL) 5 % (3.4-9.0); NEUTROPHILS % (MANUAL) 54 % (40-74); POIKILOCYTOSIS SLIGHT
[2018-04-01 08:32] LABS: PLATELET ESTIMATE ADEQUATE; PLATELET MORPHOLOGY COMMENT NORMAL; RBC MORPHOLOGY COMMENT NORMAL
[2018-04-01] MEDS: POLYETHYLENE GLYCOL 3350 17 GM PACK PO SCH (09:00)
[2018-04-01 09:50] VITALS: BP 156/83
[2018-04-01] MEDS: PANTOPRAZOLE SOD 40 MG TABEC PO SCH (09:50)
[2018-04-01] MEDS: METOPROLOL TARTRATE 50 MG TAB PO SCH (09:50)
[2018-04-01] MEDS: SUCRALFATE 1 GM TAB PO SCH ×2 (09:50→12:37)
[2018-04-01] MEDS: DOCUSATE SODIUM 100 MG CAP PO SCH (09:50)
[2018-04-01] MEDS: CEFTRIAXONE SOD 1 GM VIAL IV SCH (09:50)
[2018-04-01] MEDS: AMLODIPINE BESYLATE 10 MG TAB PO SCH (09:50)
[2018-04-01] MEDS: PREDNISONE 20 MG TAB PO SCH (09:50)
[2018-04-01] MEDS ORDERED: PREDNISONE PO (10:38)
[2018-04-01] MEDS ORDERED: PANTOPRAZOLE SO40 MG PO (10:38)
[2018-04-01] MEDS ORDERED: COLACE100 M1 PO (10:38)
[2018-04-01] MEDS ORDERED: NORVASC10 MG PO (10:38)
[2018-04-01] MEDS ORDERED: Albuterol/Ipratropium Nebulize NEB (10:38)
[2018-04-01] MEDS ORDERED: CARAFATE1 GM PO (10:38)
[2018-04-01 11:45] VITALS: BP 133/80
[2018-04-01] MEDS ORDERED: NORCO 10-325 T1 EACH PO (13:05)
--- NOTE | 2018-04-01 13:58 | Progress Note ---
DATE: April 01, 2018 PULMONARY MEDICINE PROGRESS NOTE SUBJECTIVE: Ms. Erickson was seen and examined at beside. She continues to have steady improvement in her shortness of breath. The patient is walking around today. She finally had a good bowel movement. She is eating. REVIEW OF SYSTEMS: No headache. No bleeding. OBJECTIVE VITAL SIGNS: Afebrile. Vital signs noted per electronic record. GENERAL: In no acute distress, alert and calm. HEENT: Normocephalic, atraumatic. NECK: Supple. Throat midline. LUNGS: Bilateral air entry, decreased breath sounds throughout, rare rhonchi. CARDIOVASCULAR: S1, S2. No murmurs, rubs or gallops. ABDOMEN: Soft, nontender. EXTREMITIES: No clubbing. No cyanosis. There is no edema. INTEGUMENT: No rash. No purpura. IMPRESSION AND PLAN 1. Chronic obstructive pulmonary disease with exacerbation. 2. Postoperative state, status post endoscopy. 3. Former smoker. 4. Chronic hypoxemia. Continue long-term oxygen therapy, and she is being weaned down to her home dose. Left central line will be considered for removal. The patient will be evaluated. If she is good, she may be discharged from a pulmonary point of view. Continue followup and allow the patient further time for her stomach to improve on medicines as per GI, possibly as an outpatient. Job#: [id number]
--- NOTE | 2018-04-02 08:59 | Discharge Summary ---
ADMISSION DIAGNOSES: 1. Acute exacerbation of chronic obstructive pulmonary disease. 2. Hypertension. 3. Anxiety. 4. Insomnia. 5. Gastroesophageal reflux disease. DISCHARGE DIAGNOSES: 1. Acute exacerbation of chronic obstructive pulmonary disease. 2. Hypertension. 3. Anxiety. 4. Insomnia. 5. Gastroesophageal reflux disease. 6. Respiratory failure, status post tracheostomy, status post intubation. 7. Gastrointestinal bleed. 8. Hypokalemia. 9. Hypernatremia. HISTORY: Patient has a history of COPD, hypertension, anxiety, insomnia, GERD, CHF, osteoarthritis, and breast cancer with lumpectomy. HOSPITAL COURSE: A 57-year-old female with progressive worsening shortness of breath and dyspnea on exertion, presented to the ER with the same symptoms, so was sent home. She re-admitted and was admitted for COPD exacerbation. She was started on DuoNeb, IV Solu-Medrol, Rocephin, Zithromax. On admission, her chest x-ray showed no acute radiographic abnormality. Urine culture negative. Sputum culture negative. Patient complained of very severe acid reflux and blood when she wiped. So, I consulted GI. Stool for blood was collected and came back positive. Patient had an EGD per GI, which showed gastritis, esophagitis. Patient was already on PPI. After the procedure, the patient went into respiratory failure and had to be intubated and sent to ICU. In ICU, patient had a CT of the chest that showed no evidence of PE, extensive right upper extremity and right chest contrast extravasation, centrilobular and paraseptal emphysema. Repeat chest x-ray showed no acute thoracic abnormality. Patient was extubated, stable and sent back to the medical floor where she remained stable for 2 more days. Vital signs stable, although she did have to be started on Norvasc due to blood pressure. LABS ON DAY OF DISCHARGE: WBC 11.89, likely due to steroid use; hemoglobin 9.0; hematocrit 28.9. Sodium 145, potassium 3.5, creatinine of 0.57, BUN of 15, and GFR of over 70. BNP of 86.5. Patient does not want SNF placement or home PT. She uses oxygen at home, has her own walker and says she will do her own physical therapy at home. She was discharged home and follow up with Dr. Anna in 4 days. She was sent home on her normal home medications plus a taper dose of prednisone, Carafate, docusate, and Norvasc. She takes Protonix already at home, so she will continue that prescription. Patient excited and ready to go home. Dictated by Gina Talley, CRANBERRY GROWER MACEI ANNA MD Job#: [id number]
== END 2018-04-01 14:30 | disposition home or self-care (01) | DRG 208 ==
LOC: ER 07:46 → ERHOLD 11:27 → MED/SURG 15:57 → ICU 03-27 16:10 → MED/SURG 03-30 18:53
PROVIDERS: ADMIT Internal Medicine; ATTEND Internal Medicine
PROC: 5A1935Z Respiratory Ventilation, Less than 24 Consecutive Hours (ICD-10-PCS; 2018-03-27)
PROC: 02HV33Z Insertion of Infusion Device into Superior Vena Cava, Percutaneous Approach (ICD-10-PCS; 2018-03-27)
PROC: 5A12012 Performance of Cardiac Output, Single, Manual (ICD-10-PCS; 2018-03-27)
PROC: 0DB78ZX Excision of Stomach, Pylorus, Via Natural or Artificial Opening Endoscopic, Diagnostic (ICD-10-PCS; 2018-03-27)
PROC: 0BH17EZ Insertion of Endotracheal Airway into Trachea, Via Natural or Artificial Opening (ICD-10-PCS; principal; 2018-03-27 13:00)
DX: J44.1 Chronic obstructive pulmonary disease with (acute) exacerbation (principal); J96.00 Acute respiratory failure, unspecified whether with hypoxia or hypercapnia; E87.0 Hyperosmolality and hypernatremia; I50.32 Chronic diastolic (congestive) heart failure; K92.2 Gastrointestinal hemorrhage, unspecified; K20.9 Esophagitis, unspecified; K44.9 Diaphragmatic hernia without obstruction or gangrene; E83.41 Hypermagnesemia; I11.0 Hypertensive heart disease with heart failure; E78.5 Hyperlipidemia, unspecified; Z87.891 Personal history of nicotine dependence; Z78.1 Physical restraint status; R31.0 Gross hematuria; E87.6 Hypokalemia; R53.1 Weakness; Z99.81 Dependence on supplemental oxygen; D64.9 Anemia, unspecified; F41.9 Anxiety disorder, unspecified; G47.00 Insomnia, unspecified
CPT/HCPCS: 36415; 36600; 43239; 71045; 71260; 80048; 80053; 80076; 81001; 82270; 82550; 82553; 82607; 82728; 82746; 82805; 83036; 83540; 83735; 83880; 84466; 84484; 85025; 85045; 85379; 85610; 85730; 87070; 87086; 87205; 88305; 88312; 93005; 94002; 94003; 94640; 96361; 99284; J0330; J0360; J0456; J0696; J1170; J1650; J1940; J2001; J2250; J2405; J2920; J2930; J7030; J7050; Q9967

== ENCOUNTER 2018-05-02 20:22 | Inpatient (IN) | payer MEDICARE, OTHER ==
[~2018-05-02] VITALS: Ht 162.6 cm; Wt 72.1 kg
[~2018-05-02 20:22] MED LIST changes: +CARAFATE1 GM PO; +FUROSEMIDE20 MG PO; +METOPROLOL TART50 MG PO; +NORCO 10-325 T1 EACH PO; +PREDNISONE PO; +PROMETHAZINE HC25 M1 PO
--- OUTSIDE RECORDS SUMMARY | 2018-05-02 20:25 | XMS REPORT | Continuity of Care Document ---
Author Author [facility] Organization [facility] Address [address] [place] [address] Phone Unavailable Care Team Providers Care Adjunct History Instructor Name Role Phone MACIE WOLF MD PCP Insurance Providers Guarantor Sarah Horton Address [address] [place] [address] [facility] Policy Number [id number] Subscriber's Name Clement Reyes Relationship G8 Other Relationship Group Number [id number] Effective Date 17 Advance Directives Directive Response Recorded Date/Time Does the patient have an advance directive? No 03/24/18 5:20pm If yes, is advance directive on file with [facility]? No 03/24/18 5:20pm If not on file with [facility] will patient provide a copy? No 03/24/18 5:20pm Do you have a Directive to Physician? No 03/24/18 8:56am Do you have a Medical Power of Acquisitions Logistics Analyst? No 03/24/18 8:56am Do you have an out of hospital Do Not Resuscitate Order? No 03/24/18 8:56am Do you have any special needs we should be aware of? No 03/24/18 8:56am Do you have a support person here with you today? Yes 03/24/18 8:56am Did patient receive Notice of Privacy Practices? Yes 03/24/18 8:56am Did patient receive patient rights and responsibilities? Yes 03/24/18 8:56am Problems Medical Problem Onset Date Status COPD exacerbation Unknown Medications Current Home Medications Medication Dose Units Route Directions Days Qty Instructions Start Date Albuterol/Ipratropium Nebulize 3 Ml Inha 3 Ml Nebullizer Rt Q4h 30 Days 04/01/18 Amlodipine Besylate (Norvasc) 10 Mg Tab 10 Mg Oral Daily 30 Days Atorvastatin Calcium 40 Mg Tablet 40 Mg Oral Bedtime 30 Docusate Sodium (Colace) 100 Mg Capsule 100 Mg Oral Twice A Day 30 Days 04/01/18 Furosemide 20 Mg Tablet 20 Mg Oral Daily as needed for Swelling Guaifenesin/Dextromethorphan (Mucinex Dm Er 600-30 Mg Tablet) 1 Each Tab.er.12h 1 Each Oral Every 12 Hours as needed for Nasal Congestion Hydrocodone Bit/Acetaminophen ([place] 10-325 Tablet) 1 Each Tablet 1 Tab Oral Every 6 Hours as needed for Pain Lorazepam 1 Mg Tablet 1 Mg Oral Twice A Day as needed for Anxiety 60 Metoprolol Tartrate 50 Mg Tablet 50 Mg Oral Twice A Day Mirtazapine 15 Mg Tab 15 Mg Oral Bedtime 30 Days 12/21/17 Pantoprazole Sodium (Protonix) 40 Mg Tablet.dr 40 Mg Oral Before Breakfast 30 Days 04/01/18 Prednisone 10 Mg Oral Use As Directed 12 Days TAKE 20MG PO DAILY X4 DAYS THEN TAKE 10MG PO DAILY X4 DAYS THEN TAKE 5MG PO DAILY X4 DAYS THEN STOP 04/01/18 Promethazine Hcl 25 Mg Tablet 25 Mg Oral Every 8 Hours as needed for Nausea And Vomiting Sucralfate (Carafate) 1 Gm Tablet 1 Gm Oral Before Meals And At Bedtime 30 Days 04/01/18 Temazepam 15 Mg Capsule 15 Mg Oral Bedtime as needed for Insomnia 30 Past Home Medications Medication Directions Ordered Status Acetaminophen With Codeine (Acetaminophen-Cod #4 Tablet) 1 Each Tablet, 1 Tab Oral Every 8 Hours as needed for Pain Discontinued Albuterol Hfa , 1 Inh Inhalation Every 8 Hours as needed for Shortness Of Breath 01/29/18 Discontinued Albuterol/Ipratropium Nebulize 3 Ml Inha, 3 Ml Nebullizer Rt Q4h 12/21/17 Discontinued Amlodipine Besylate (Norvasc) 10 Mg Tab, 10 Mg Oral Daily 12/21/17 Discontinued Arformoterol Tartrate (Brovana) 15 Mcg/2 Ml Nebu, 15 Mcg Nebullizer Twice A Day Discontinued Azithromycin (Zithromax) 250 Mg Tablet, 250 Mg Oral Daily 01/29/18 Discontinued Docusate Sodium (Colace) 100 Mg Capsule, 100 Mg Oral As Needed 12/21/17 Discontinued Doxycycline Hyclate 100 Mg Capsule, 100 Mg Oral Twice A Day 12/21/17 Discontinued Fluticasone Propionate 1 Ea [place], 1 Ea Nasal Twice A Day 12/21/17 Discontinued Gabapentin 100 Mg Capsule, 100 Mg Oral Three Times A Day Discontinued Metoprolol Tartrate (Lopressor) 25 Mg Tab, 25 Mg Oral Every 12 Hours Discontinued Pantoprazole Sodium (Protonix) 40 Mg Tablet.dr, 40 Mg Oral Before Breakfast 01/29/18 Discontinued Prednisone 20 Mg Tab, 10 Mg Oral Use As Directed 01/29/18 Discontinued Prednisone 20 Mg Tab, 20 Mg Oral Twice A Day 12/21/17 Discontinued Sucralfate 1 Gm Tablet, 1 Gm Oral Three Times A Day Discontinued Social History Social History Problem Response Recorded Date/Time Onset Date Status Hx Psychiatric Problems Yes 03/24/2018 5:20pm Not Applicable Not Applicable Hx Eating Disorder No 03/24/2018 5:20pm Not Applicable Not Applicable Hx Substance Use Disorder No 03/24/2018 5:20pm Not Applicable Not Applicable Hx Depression Yes 03/24/2018 5:20pm Not Applicable Not Applicable Hx Alcohol Use No 03/24/2018 5:20pm Not Applicable Not Applicable Hx Substance Use Treatment No 03/24/2018 5:20pm Not Applicable Not Applicable Hx Physical Abuse No 03/24/2018 5:20pm Not Applicable Not Applicable Smoking Status Start Date Stop Date Former smoker Hospital Discharge Instructions No hospital discharge instruction information available. Plan of Care Discharge Date 04/01/18 2:30pm Disposition HOME, SELF-CARE Instructions/Education Provided COPD Prescriptions See Medication Section Referrals MACIE WOLF MD (Internal Medicine) Entered Date: 04/01/2018 10:39am Address: [address] [place] [id number] PRICE CAVANAUGH MD (Gastroenterology) Order Date: 2 Weeks Entered Date: 04/01/2018 10:39am Address: [address] [place] [address] [address] [place] [address] Additional Instructions/Education FOLLOW UP WITH PCP IN 2 WEEKS ACTIVITY TOLERATED DIET TOLERATED MAY SHOWER USE OXYGEN PER INSTRUCTED KEEP ALL FOLLOW UP APPOINTMENTS Functional Status Query Response Date Recorded FUNCTIONAL STATUS . March 30, 2018 1:45pm Assistive Devices Standard Walker March 24, 2018 5:20pm Ambulation Ability Independent March 24, 2018 5:20pm Toileting Ability Independent March 31, 2018 9:01am Allergies, Adverse Reactions, Alerts Allergen Type Severity Reaction Status Last Updated Morphine Allergy Unknown Active 03/01/18 UNK ANTIBIOTIC Allergy Unknown Active 12/14/17 Immunizations No immunization information available. Vital Signs Acute Vital Signs Vital Response Date/Time Temperature (Fahrenheit) 98.2 degrees F (97.6 - 99.5) 04/01/2018 11:45am Pulse Pulse Rate (adult) 79 bpm (60 - 90) 04/01/2018 11:45am Respiratory Rate 18 bpm (12 - 24) 04/01/2018 11:45am Blood Pressure 133/80 mm Hg 04/01/2018 11:45am Height 5 ft 4 in 03/24/2018 7:55am Weight 143.25 lb 03/30/2018 7:36am Body Mass Index 24.6 kg/m^2 03/30/2018 7:36am Results Laboratory Results Test Name Result Units Flags Reference Collection Date/Time Result Date/ Time Comments Thyroid Stimulating Hormone (TSH) 0.122 uIU/mL L 0.350-4.940 12/16/2017 5 :45am 12/16/2017 7:12am Influenza Virus Types A,B Antigen NEGATIVE NEGATIVE 01/26/2018 12: 15pm 01/26/2018 2:07pm Lactic Acid Level 11.5 MG/DL 4.5-19.8 01/26/2018 11:56am 01/26/2018 12: 45pm White Blood Count 11.89 x10e3/uL H 4.8-10.8 04/01/2018 5:45am 2017 6:21am Red Blood Count 3.21 x10e6/uL L 3.6-5.1 04/01/2018 5:45am 04/01/2018 6: 21am Hemoglobin 9.0 g/dL L 12.0-16.0 04/01/2018 5:4504/01/2018 6:21am Hematocrit 28.9 % L 34.2-44.1 04/01/2018 5:4504/01/2018 6:21am Mean Corpuscular Volume 90.0 fL 81-99 04/01/2018 5:4504/01/2018 6: 21am Mean Corpuscular Hemoglobin 28.0 pg 28-32 04/01/2018 5:4504/01/2018 6:21am Mean Corpuscular Hemoglobin Concent 31.1 g/dL 31-35 04/01/2018 5:4504/01/2018 6:21am Red Cell Distribution Width 13.8 % 11.7-14.4 04/01/2018 5:452017 6:21am Platelet Count 272 x10e3/uL 140-360 04/01/2018 5:45am 04/01/2018 6: 21am Neutrophils (%) (Auto) 55.4 % 38.7-80.0 04/01/2018 5:4504/01/2018 6: 21am Lymphocytes (%) (Auto) 26.0 % 18.0-39.1 04/01/2018 5:4504/01/2018 6: 21am Monocytes (%) (Auto) 9.5 % 4.4-11.3 04/01/2018 5:4504/01/2018 6: 21am Eosinophils (%) (Auto) 5.9 % 0.0-6.0 04/01/2018 5:4504/01/2018 6: 21am Basophils (%) (Auto) 0.3 % 0.0-1.0 04/01/2018 5:4504/01/2018 6:21am IM GRANULOCYTES % 2.9 % H 0.0-1.0 04/01/2018 5:4504/01/2018 6:21am Neutrophils # (Auto) 6.6 2.1-6.9 04/01/2018 5:4504/01/2018 6:21am Lymphocytes # (Auto) 3.1 1.0-3.2 04/01/2018 5:45am 04/01/2018 6:21am Monocytes # (Auto) 1.1 H 0.2-0.8 04/01/2018 5:45am 04/01/2018 6:21am Eosinophils # (Auto) 0.7 H 0.0-0.4 04/01/2018 5:45am 04/01/2018 6: 21am Basophils # (Auto) 0.0 0.0-0.1 04/01/2018 5:45am 04/01/2018 6:21am Absolute Immature Granulocyte (auto 0.35 x10e3/uL H 0-0.1 04/01/2018 5: 45am 04/01/2018 6:21am Differential Total Cells Counted 100 04/01/2018 5:45am 04/01/2018 8 :32am Neutrophils % (Manual) 54 % 40-74 04/01/2018 5:45am 04/01/2018 8:32am Lymphocytes % (Manual) 31 % 19-48 04/01/2018 5:45am 04/01/2018 8:32am Monocytes % (Manual) 5 % 3.4-9.0 04/01/2018 5:45am 04/01/2018 8:32am Eosinophils % (Manual) 9 % H 0-7 04/01/2018 5:45am 04/01/2018 8:32am Reactive Lymphocytes 1 04/01/2018 5:45am 04/01/2018 8:32am Platelet Estimate ADEQUATE 04/01/2018 5:45am 04/01/2018 8:32am Platelet Morphology Comment NORMAL 04/01/2018 5:45am 04/01/2018 8: 32am Hypochromasia SLIGHT 04/01/2018 5:45am 04/01/2018 8:32am Poikilocytosis SLIGHT 04/01/2018 5:45am 04/01/2018 8:32am Anisocytosis SLIGHT 04/01/2018 5:45am 04/01/2018 8:32am Red Cell Morphology Comment NORMAL 04/01/2018 5:45am 04/01/2018 8: 32am Percent Reticulocyte Count 1.5 % 0.8-2.2 03/27/2018 7:00am 03/27/2018 7 :36am Prothrombin Time 12.8 seconds 11.9-14.5 03/27/2018 8:45pm 03/27/2018 10 :22pm Prothromb Time International Ratio 1.04 03/27/2018 8:45pm 2017 10:22pm Oral Anticoagulant Therapy INR Values: 1. Low Intensity Therapy 1.5 - 2.0 2. Moderate Intensity Therapy 2.0 - 3.0 3. High Intensity Therapy(1) 2.5 - 3.5 4. High Intensity Therapy(2) 3.0 - 4.0 5. Panic Value INR > 5.0 Activated Partial Thromboplast Time 23.8 seconds 23.8-35.5 03/27/2018 8: 45pm 03/27/2018 10:35pm D-Dimer Quantitative (PE/DVT) 1.02 ug/mLFEU H 0.00-0.45 03/28/2018 5: 30am 03/28/2018 9:54am As with all in vitro diagnostic tests, the test results should be interpreted by the physician in conjunction with clinical findings and other test results. Test results are reported in NEW D-dimer units(ug/mLFEU). Urine Color YELLOW YELLOW 03/28/2018 10:38am 03/28/2018 11:02am Urine Clarity HAZY CLEAR 03/28/2018 10:38am 03/28/2018 11:02am Urine Specific [place] 1.020 1.010-1.025 03/28/2018 10:38am 2017 11:02am Urine pH 5 5 - 7 03/28/2018 10:38am 03/28/2018 11:02am Urine Leukocyte Esterase NEGATIVE NEGATIVE 03/28/2018 10:38am 2017 11:02am Urine Nitrite NEGATIVE NEGATIVE 03/28/2018 10:38am 03/28/2018 11: 02am Urine Protein NEGATIVE NEGATIVE 03/28/2018 10:38am 03/28/2018 11: 02am Urine Glucose (UA) NEGATIVE NEGATIVE 03/28/2018 10:38am 03/28/2018 11 :02am Urine Ketones NEGATIVE NEGATIVE 03/28/2018 10:38am 03/28/2018 11: 02am Urine Urobilinogen 0.2 mg/dL 0.2 - 1 03/28/2018 10:38am 03/28/2018 11: 02am Urine Bilirubin NEGATIVE NEGATIVE 03/28/2018 10:38am 03/28/2018 11: 02am Urine Blood 4+ H NEGATIVE 03/28/2018 10:38am 03/28/2018 11:02am Urine WBC 0-5 /HPF 0-5 03/28/2018 10:38am 03/28/2018 11:32am Urine RBC 11-20 /HPF H 0-5 03/28/2018 10:38am 03/28/2018 11:32am Urine Bacteria NONE /HPF NONE 03/28/2018 10:38am 03/28/2018 11:32am Urine Epithelial Cells FEW /LPF NONE 03/28/2018 10:38am 03/28/2018 11: 32am Sodium Level 145 mmol/L 136-145 04/01/2018 5:45am 04/01/2018 6:27am Potassium Level 3.5 mmol/L 3.5-5.1 04/01/2018 5:45am 04/01/2018 6:27am Chloride Level 103 mmol/L 98-107 04/01/2018 5:45am 04/01/2018 6:27am Carbon Dioxide Level 35 mmol/L H 22-29 04/01/2018 5:45am 04/01/2018 6: 27am Anion Gap 10.5 mmol/L 8-16 04/01/2018 5:45am 04/01/2018 6:27am Blood Urea Nitrogen 15 mg/dL 7-04/01/2018 5:45am 04/01/2018 6:27am Creatinine 0.57 mg/dL 0.57-1.11 04/01/2018 5:45am 04/01/2018 6:27am BUN/Creatinine Ratio 26 H 6-25 04/01/2018 5:45am 04/01/2018 6:27am Estimat Glomerular Filtration Rate > 60 ML/MIN 60- 04/01/2018 5:45am 6:27am Ranges were taken from the National Kidney Disease Education Program and the National Kid[employer] Foundation literature. Reference ranges: 60 or greater: Normal 16-59 (for 3 consecutive months): Chronic kidney disease 15 or less: Kidney failure Glucose Level 86 mg/dL 74-118 04/01/2018 5:45am 04/01/2018 6:27am Calcium Level 8.7 mg/dL 8.4-10.2 04/01/2018 5:45am 04/01/2018 6:27am Hemoglobin A1c Percent 5.3 % 4.0-7.0 03/27/2018 7:00am 03/27/2018 7: 49am Magnesium Level 1.9 MG/DL 1.3-2.1 04/01/2018 5:45am 04/01/2018 6:27am Iron Level 72 ug/dL 50-170 03/27/2018 7:00am 03/27/2018 7:49am Total Iron Binding Capacity 438 ug/dL 261-478 03/27/2018 7:00am 2017 7:49am Percent Iron Saturation 16 % 15-50 03/27/2018 7:00am 03/27/2018 7:49am Transferrin 313 mg/dL 180-382 03/27/2018 7:00am 03/27/2018 7:49am Ferritin 20.62 ng/mL 4.63-204.00 03/27/2018 7:00am 03/27/2018 8:09am Total Bilirubin 0.2 mg/dL 0.2-1.2 03/30/2018 1:45pm 03/30/2018 2:36pm Direct Bilirubin 0.1 mg/dL 0.0-0.5 03/28/2018 5:30am 03/28/2018 8:05am Aspartate Amino Transf (AST/SGOT) 15 IU/L 5-34 03/30/2018 1:45pm 2017 2:36pm Alanine Aminotransferase (ALT/SGPT) 12 IU/L 0-55 03/30/2018 1:45pm 11/2017 2:36pm Total Protein 5.5 g/dL L 6.5-8.1 03/30/2018 1:45pm 03/30/2018 2:36pm Albumin 3.0 g/dL L 3.5-5.0 03/30/2018 1:45pm 03/30/2018 2:36pm Globulin 2.5 g/dL 2.3-3.5 03/30/2018 1:45pm 03/30/2018 2:36pm Albumin/Globulin Ratio 1.2 0.8-2.0 03/30/2018 1:45pm 03/30/2018 2: 36pm Alkaline Phosphatase 42 IU/L 40-150 03/30/2018 1:45pm 03/30/2018 2: 36pm B-Type Natriuretic Peptide 86.5 pg/mL 0-100 04/01/2018 5:45am 2017 7:02am Creatine Kinase 30 IU/L 29-168 03/28/2018 5:30am 03/28/2018 7:27am Creatine Kinase MB 1.00 ng/mL 0-5.0 03/28/2018 5:30am 03/28/2018 7: 27am Troponin I 0.030 ng/mL 0-0.300 03/28/2018 5:30am 03/28/2018 7:27am Vitamin B12 Level 310 pg/mL 213-816 03/27/2018 7:00am 03/27/2018 8: 27am Folate 12.8 ng/mL 7.0-15.4 03/27/2018 7:00am 03/27/2018 8:27am Arterial Blood pH 7.45 H 7.31-7.41 03/28/2018 11:15am 03/28/2018 11: 22am Arterial Blood Partial Pressure CO2 47 mmHg 41-51 03/28/2018 11:15am 11:22am Arterial Blood Partial Pressure O2 176 mmHg H 80-105 03/28/2018 11:15am 03/28/2018 11:22am Arterial Blood HCO3 33 mmol/L H 23-28 03/28/2018 11:15am 03/28/2018 11: 22am Arterial Blood Base Excess 8.0 mmol/L H -2 - 3 03/28/2018 11:15am 2017 11:22am Arterial Blood Oxygen Saturation 100.0 % H 95-98 03/28/2018 11:15am 11:22am FiO2 45 % 03/28/2018 11:15am 03/28/2018 11:22am CPAP PS 7 PEEP 3 FIO2 45% Stool Occult Blood POSITIVE H NEGATIVE 03/26/2018 2:25pm 03/26/2018 2: 54pm Microbiology Results Procedure Source Organism/Result Collection Date/Time Result Date/Time Result Status Blood Culture Blood NO GROWTH AFTER 5 DAYS, FINAL REPORT 12/14/2017 7:45pm 12/19/2017 8:40pm Final Procedures Procedure Status Date Provider(s) INSERTION OF INFUSION DEV INTO SUP VENA CAVA, PERC APPROACH Completed NATASHA LEE NP EGD with biopsy Completed 03/27/18 PRICE CAVANAUGH MD X-ray of chest, single view Active 12/14/17 SHANTA SILVERIO MD Computed tomography of chest with contrast Active 01/26/18 EMELIA BROWNING MD X-ray of chest, two views Active 03/01/18 GERALDINE PEREZ MD X-ray of chest, single view Active 03/27/18 NEFTALI RODRIGUEZ MD Computed tomography of chest with contrast Active 03/27/18 NEFTALI RODRIGUEZ MD Encounters Encounter Location Arrival/Admit Date Discharge/Depart Date Attending Provider Discharged Inpatient [facility] 03/24/18 11:27am 2:30pm MACIE WOLF MD Departed Emergency Room [facility] 03/01/18 7:49pm 1:05am GERALDINE PEREZ MD Discharged Inpatient (obs) [facility] 01/26/18 4:27pm 01/17 11:32am MACIE WOLF MD Discharged Inpatient [facility] 12/16/17 9:44pm 12/21/17 3:04pm MACIE WOLF MD
[2018-05-02] MEDS ORDERED: METHYLPREDNISOLONE SOD SUCC 125 MG/2ML VIAL IV STA (20:40)
[2018-05-02] MEDS ORDERED: ALBUTEROL SULF 0.083% NEB SOLN 3 ML NEB NEB STA (20:40)
[2018-05-02] MEDS ORDERED: PANTOPRAZOLE 40 MG 10ML VIAL IV STA (20:40)
[2018-05-02] MEDS ORDERED: IPRATROPIUM BROMIDE 0.02% 2.5 ML NEB NEB ONE (20:45)
[2018-05-02 20:58] LABS: BASOPHILS # (AUTO) 0.1 (0.0-0.1); EOSINOPHILS # (AUTO) 0.3 (0.0-0.4); EOSINOPHILS % 3.6 % (0.0-6.0); HEMATOCRIT 32.9 % (34.2-44.1); HEMOGLOBIN 10.6 g/dL (12.0-16.0); LYMPHOCYTES % 30.9 % (18.0-39.1); MEAN CORPUSCULAR HGB CONC 32.2 g/dL (31-35); MONOCYTES # (AUTO) 0.9 (0.2-0.8); MONOCYTES % 9.2 % (4.4-11.3); NEUTROPHILS # (AUTO) 5.2 (2.1-6.9); NEUTROPHILS % 54.7 % (38.7-80.0); PLATELET COUNT 314 x10e3/uL (140-360); RED BLOOD COUNT 3.78 x10e6/uL (3.6-5.1); RED CELL DISTRIBUTION WIDTH 13.6 % (11.7-14.4)
[2018-05-02 21:06] LABS: INR 1.03; PROTHROMBIN TIME 12.7 seconds (11.9-14.5)
[2018-05-02 21:06] LABS: BILIRUBIN,URINE NEGATIVE (NEGATIVE); CLARITY,URINE CLEAR (CLEAR); COLOR,URINE YELLOW (YELLOW); KETONES,URINE NEGATIVE (NEGATIVE); LEUKOCYTE ESTERASE ,URINE NEGATIVE (NEGATIVE); NITRITE,URINE NEGATIVE (NEGATIVE); PROTEIN,URINE DIPSTICK NEGATIVE (NEGATIVE); URINE UROBILINOGEN 0.2 mg/dL (0.2 - 1)
[2018-05-02 21:07] LABS: PARTIAL THROMBOPLASTIN TIME 26.4 seconds (23.8-35.5)
[2018-05-02 21:12] LABS: EPITHELIAL CELLS,URINE MODERATE /LPF
[2018-05-02 21:16] LABS: ALANINE AMINOTRANSFERASE 14 IU/L (0-55); ALBUMIN/GLOBULIN RATIO 1.5 (0.8-2.0); ALKALINE PHOSPHATASE 57 IU/L (40-150); ANION GAP 15.3 mmol/L (8-16); BLOOD UREA NITROGEN 11 mg/dL (7-26); BUN/CREATININE RATIO 16 (6-25); CALCIUM 9.6 mg/dL (8.4-10.2); CARBON DIOXIDE 28 mmol/L (22-29); CHLORIDE 108 mmol/L (98-107); CREATINE KINASE 61 IU/L (29-168); CREATININE, SERUM 0.69 mg/dL (0.57-1.11); EST GLOMERULAR FILTRATION RATE > 60 ML/MIN (60-); GLUCOSE 96 mg/dL (74-118); MAGNESIUM 1.9 MG/DL (1.3-2.1); POTASSIUM 3.3 mmol/L (3.5-5.1); SODIUM 148 mmol/L (136-145)
--- NOTE | 2018-05-02 21:39 | Diagnostic Imaging Report ---
CHEST SINGLE (PORTABLE), 05/02/2018 8:40 PM Technique: CHEST SINGLE (PORTABLE) Comparison: 03/28/2018. Clinical history: Shortness of breath Findings: Stable cardiomediastinal silhouette. Emphysema without focal consolidation. Left lung calcified granuloma is again noted. No pleural effusion or pneumothorax. Impression: 1. Lines/Tubes: None 2. No acute abnormality. Signed by: Dr Lien Mojica MD on 05/02/2018 9:36 PM
[2018-05-02] MEDS ORDERED: SODIUM CHLORIDE 0.9% 1000ML 1,000 ML IV STA (21:40)
[2018-05-02 22:09] LABS: AMPHETAMINES SCREEN,URINE NEGATIVE (NEGATIVE); PHENCYCLIDINE SCREEN,URINE NEGATIVE (NEGATIVE)
[2018-05-02 22:10] LABS: BENZODIAZEPINES SCREEN,URINE POSITIVE (NEGATIVE)
[2018-05-02 22:15] LABS: ABG HCO3 33 mmol/L (23-28); ABG PCO2 49 mmHg (41-51); ABG PH 7.43 (7.31-7.41); ABG PO2 137 mmHg (80-105)
[2018-05-02] MEDS ORDERED: KCL 20MEQ/.9 SOD CHL 1,000 ML IV ONE (22:45)
[2018-05-02] MEDS: IPRATROPIUM BROMIDE 0.02% 2.5 ML NEB NEB SCH (23:00)
[2018-05-02] MEDS: ALBUTEROL SULF 0.083% NEB SOLN 3 ML NEB NEB SCH (23:00)
[2018-05-02] MEDS ORDERED: FUROSEMIDE 20 MG TAB PO PRN (23:15)
[2018-05-02] MEDS: FAMOTIDINE 20 MG/2 ML VIAL IV SCH (23:20)
[2018-05-02] MEDS: AZITHROMYCIN 500MG/NS 250 ML 250 ML IV SCH (23:20)
[2018-05-02 23:40] VITALS: BP 129/77
[2018-05-02 23:50] VITALS: BP 129/77
[2018-05-03] MEDS: HYDROCODONE/APAP 7.5MG-325MG 1 EA TAB PO PRN ×4 (01:00→21:00)
[2018-05-03] MEDS: IPRATROPIUM BROMIDE 0.02% 2.5 ML NEB NEB SCH ×6 (03:15→23:30)
[2018-05-03] MEDS: ALBUTEROL SULF 0.083% NEB SOLN 3 ML NEB NEB SCH ×6 (03:15→23:30)
[2018-05-03] MEDS: LORAZEPAM 1 MG TAB PO PRN ×2 (03:40→11:31)
[2018-05-03 03:55] VITALS: BP 146/72
[2018-05-03] MEDS ORDERED: METHYLPREDNISOLONE SOD SUCC 125 MG/2ML VIAL IV SCH (06:00)
[2018-05-03 06:29] LABS: BASOPHILS % 0.2 % (0.0-1.0); HEMATOCRIT 31.3 % (34.2-44.1); LYMPHOCYTES # (AUTO) 0.8 (1.0-3.2); LYMPHOCYTES % 9.5 % (18.0-39.1); MEAN CORPUSCULAR HEMOGLOBIN 27.9 pg (28-32); MEAN CORPUSCULAR HGB CONC 31.9 g/dL (31-35); MEAN CORPUSCULAR VOLUME 87.2 fL (81-99); MONOCYTES # (AUTO) 0.1 (0.2-0.8); MONOCYTES % 0.7 % (4.4-11.3); NEUTROPHILS # (AUTO) 7.4 (2.1-6.9); NEUTROPHILS % 88.6 % (38.7-80.0); PLATELET COUNT 256 x10e3/uL (140-360); RED BLOOD COUNT 3.59 x10e6/uL (3.6-5.1); RED CELL DISTRIBUTION WIDTH 13.3 % (11.7-14.4)
[2018-05-03 06:53] LABS: ALANINE AMINOTRANSFERASE 14 IU/L (0-55); ALBUMIN 3.6 g/dL (3.5-5.0); ALBUMIN/GLOBULIN RATIO 1.5 (0.8-2.0); ALKALINE PHOSPHATASE 51 IU/L (40-150); BLOOD UREA NITROGEN 10 mg/dL (7-26); BUN/CREATININE RATIO 16 (6-25); CALCIUM 8.7 mg/dL (8.4-10.2); CARBON DIOXIDE 26 mmol/L (22-29); CHLORIDE 111 mmol/L (98-107); CHOLESTEROL 175 MD/DL (0-199); CREATININE, SERUM 0.61 mg/dL (0.57-1.11); EST GLOMERULAR FILTRATION RATE > 60 ML/MIN (60-); GLUCOSE 163 mg/dL (74-118); HDL CHOLESTEROL 59 MG/DL (40-60); LDL CHOLESTEROL 110 MG/DL (60-130); SODIUM 144 mmol/L (136-145); TRIGLYCERIDES 32 MG/DL (0-149)
[2018-05-03 07:08] LABS: CREATINE KINASE 54 IU/L (29-168)
[2018-05-03] MEDS: ASPIRIN 81 MG ENTERIC COATED PO SCH (07:24)
[2018-05-03] MEDS: FAMOTIDINE 20 MG/2 ML VIAL IV SCH ×2 (07:24→22:45)
[2018-05-03] MEDS: AZITHROMYCIN 500MG/NS 250 ML 250 ML IV SCH (07:24)
[2018-05-03] MEDS ORDERED: TEMAZEPAM 15 MG CAP PO PRN (07:45)
[2018-05-03 08:00] VITALS: BP 135/73
[2018-05-03] MEDS: METOPROLOL TARTRATE 50 MG TAB PO SCH ×2 (08:31→16:42)
[2018-05-03] MEDS: DOCUSATE SODIUM 100 MG CAP PO SCH ×2 (08:31→16:32)
[2018-05-03] MEDS: AMLODIPINE BESYLATE 10 MG TAB PO SCH (08:32)
[2018-05-03] MEDS ORDERED: ONDANSETRON HCL 4 MG ORAL DISINTEGRATING TAB PO PRN (08:45)
[2018-05-03] MEDS ORDERED: HYDRALAZINE HCL 20 MG/ML VIAL IV PRN (08:45)
[2018-05-03] MEDS ORDERED: ACETAMINOPHEN 325 MG TAB PO PRN (08:45)
[2018-05-03] MEDS ORDERED: ENOXAPARIN SOD INJ 40 MG/0.4 ML SYR SC STA (08:57)
--- NOTE | 2018-05-03 09:15 | History and Physical ---
PRIMARY CARE PHYSICIAN: Dr. Anna CHIEF COMPLAINT: Shortness of breath for 2 days. HISTORY OF PRESENT ILLNESS: This is a 57-year-old woman with a history of COPD, who quit cigarettes 9 years ago, and now developing shortness of breath for the past few days prompting her visit to the hospital. Denies any chest pain. She did have left leg swelling. Denies any history of CHF. PAST MEDICAL HISTORY: COPD, hypertension, anxiety disorder, insomnia, GERD, respiratory failure, hypernatremia, hypokalemia, GI bleed, insomnia, osteoarthritis, breast cancer, status post lumpectomy. PAST SURGICAL HISTORY: Lumpectomy. ALLERGIES: PER ELECTRONIC MEDICAL RECORD. FAMILY HISTORY/SOCIAL HISTORY: The patient denies any alcohol or illicits. Quit cigarettes 9 years ago. She is single and has grown children. MEDICATIONS: Per electronic medical records. REVIEW OF SYSTEMS: Denies any dizziness or chest pain. PHYSICAL EXAMINATION VITAL SIGNS: Have been reviewed. GENERAL: A tired-appearing woman resting in bed. HEENT: Anicteric. Pupils respond to light. No oral lesions. CARDIOVASCULAR: Normal S1 and S2. LUNGS: Reduced breath sounds throughout. ABDOMEN: Soft, nontender and nondistended. EXTREMITIES: No edema or calf tenderness. NEUROLOGICAL: Alert and oriented times 3. Moving all extremities. SKIN: Dry. PSYCHIATRIC: Flat affect. LABS: Reviewed. MEDICATIONS: Reviewed. ASSESSMENT AND PLAN: A 57-year-old woman with: 1. Acute exacerbation of chronic obstructive pulmonary disease. 2. Hypertension. 3. Hyperlipidemia. 4. Normocytic anemia. 5. Hypokalemia. 6. Constipation. 7. Insomnia. 8. Anxiety disorder. 9. History of respiratory failure. PLAN 1. Continue azithromycin and Solu-Medrol and antitussive medication. 2. Continue Pepcid. 3. Continue PPI. 4. Continue Lasix 20 mg daily. 5. Follow up 2-D echocardiogram. 6. Continue blood pressure control. 7. Continue mirtazapine. 8. Blood pressure currently controlled. 9. Follow up cultures. 10. Monitor closely. Job#: [id number] MA
[2018-05-03] MEDS: ENOXAPARIN SOD INJ 40 MG/0.4 ML SYR SC SCH (10:00)
[2018-05-03] MEDS: DOXYCYCLINE 100MG/NS 100ML 100 ML IV SCH ×2 (10:00→20:11)
[2018-05-03] MEDS: SUCRALFATE 1 GM TAB PO SCH ×3 (11:29→20:11)
[2018-05-03 11:57] VITALS: BP 120/66
[2018-05-03 14:52] LABS: CREATINE KINASE 49 IU/L (29-168)
--- NOTE | 2018-05-03 15:10 | Consultation ---
DATE OF CONSULTATION: May 03, 2018 PULMONARY MEDICINE CONSULT REFERRING PHYSICIAN: Dr. Schumacher. PATIENT'S PRIMARY CARE DOCTOR: Dr. Anna. REASON FOR REFERRAL: COPD exacerbation. HISTORY: Mrs. Erickson is a pleasant 57-year-old female with shortness of breath. Patient is well known to me from previous hospitalizations where she was undergoing GI workup for issues related to stomach distention. Patient had an intubation postoperatively at that point, but she went home rapidly thereafter after a quick recovery. Here she was in her present state of illness. Her medicines remain albuterol p.r.n. inhaler and ipratropium nebulized about every 4 hours, she tells me, at home. She stopped other medications for her breathing condition. Patient had 1-1/2 days of shortness of breath here. Patient feels she ate a burrito but it feels like she ate a hundred burritos. With the stomach distention and pain, she had difficulties breathing. She is still passing gas and having some bowel movements, but it is relatively little compared to what she expects. She came to the emergency room because she could not breathe any longer. Here her chest x-ray was clear. She was given initial steroids and antibiotics, and there is some improvement already but she still has a lot of symptoms including abdominal symptoms. She is admitted. PAST MEDICAL HISTORY: COPD, hypertension, anxiety, insomnia, GERD, hypernatremia/hypokalemia, GI bleeding, insomnia, osteoarthritis, breast cancer status post lumpectomy. MEDICATIONS: Medication list reviewed per the electronic record. ALLERGIES: UNKNOWN ANTIBIOTIC POSSIBLY AND MORPHINE. SOCIAL HISTORY: Patient quit smoking 9 years ago. No alcohol, no drugs. FAMILY HISTORY: Noncontributory to this condition. REVIEW OF SYSTEMS: GENERALLY: No weight changes. OPHTHALMOLOGIC: No double vision. ENT: No salivary gland issues. ENDOCRINE: No thyroid disease known. CARDIAC: No heart attacks. PULMONARY: No asthma by history. IMMUNOLOGIC: No history of any allergies. GASTROINTESTINAL: No chronic diarrhea. GENITOURINARY: No blood in urine although she is under workup by urologist. MUSCULOSKELETAL: There is mild arthritis. DERMATOLOGIC: No rashes. NEUROLOGIC: No seizures. PHYSICAL EXAMINATION VITAL SIGNS: Afebrile. Vital signs noted per electronic record. GENERALLY: In no acute distress, alert and calm. She is sensitive to touch on parts of her back and her abdomen. HEENT: Normocephalic, atraumatic. NECK: Supple. Throat midline. LUNGS: Bilateral air entry, decreased breath sounds significant; so, there is only very small air entry, no minh wheezes. CARDIOVASCULAR: S1 and S2. No murmurs, rubs or gallops. ABDOMINAL: Soft, nontender. EXTREMITIES: No clubbing, no cyanosis. There is no edema. INTEGUMENT: No rash, no purpura. LABS: Potassium 4.0, creatinine 0.6. White count 8, hematocrit 31, platelets 256. IMPRESSION AND PLAN 1. Chronic obstructive pulmonary disease with exacerbation. 2. Gastric distention, not otherwise specified. 3. Gastropathy, not otherwise specified. 4. Hypertension. 5. Dyslipidemia. 6. History of anxiety disorder reported. 7. Gastroesophageal reflux disease. 8. History of breast cancer and lumpectomy. At this point, continue steroids and we will start weaning empiric bronchodilators. Do an abdominal x-ray. Continue to allow the patient to pass gas and to mobilize. Will see if her breathing parallels any improvement in her GI status. Thank you very much, Dr. Anna and Dr. Schumacher, for this consult. Please call for questions. Job#: [id number] EV
[2018-05-03 16:00] VITALS: BP 122/79
--- NOTE | 2018-05-03 16:54 | Diagnostic Imaging Report ---
PROCEDURE:ABDOMEN COMP INCL UPR OR DECUB TECHNIQUE:The 2 views of the abdomen supine and upright. INDICATION:Abdominal distention. Loss of appetite. COMPARISON:Chest x-ray 05/02/2018. CT chest 03/27/2018. FINDINGS: Mild to moderate amount of stool. Normal dilated small bowel loops. Normal bowel gas pattern. Mild to moderate degenerative changes centered at L5-S1. No abnormal soft tissue masses or calcifications. No free air underneath the diaphragm. No air-fluid levels. CONCLUSION: Unremarkable abdomen. Dictated by: Warren Davidson M.D. on 05/03/2018 at 16:57 Electronically approved by: Warren Davidson M.D. on 05/03/2018 at 16:57
--- NOTE | 2018-05-03 18:30 | Consultation ---
DATE OF CONSULTATION: May 03, 2018 PSYCHIATRIC CONSULTATION REASON FOR CONSULTATION: To evaluate patient's anxiety and depression. HISTORY OF PRESENTING ILLNESS: The patient is a 57-year-old female admitted to the hospital for COPD exacerbation and dyspnea. Psychiatric consultation is called to evaluate patient's mood. As per the medical record, patient has history of COPD, hypertension, anxiety disorder, insomnia, respiratory failure, hypernatremia, hypokalemia, GI bleed, osteoarthritis, breast cancer and status post lumpectomy. Upon evaluation today, patient is found to be sitting in a chair in her room. She is alert, awake and oriented to situation. Patient states that she has been feeling increasingly depressed and anxious due to her medical issues which reduce her independence and affect her ability to work. Patient states that she is feeling hopeless and helpless, and she also complains of poor sleep and poor appetite and cries easily. She denies any suicidal ideation and that she wants to live for her grandchildren. She denies any hallucinations. Patient states that she has been on Ativan 1 mg p.r.n. for many years to help with the anxiety. PAST PSYCHIATRIC HISTORY: Patient denies any past psychiatric history although she did admit to having attempted suicide once in the past and has been committed to an inpatient psychiatric after her son was murdered. She denies any alcohol and drug use. FAMILY HISTORY: Patient denies any family history of psychiatric illness. SOCIAL HISTORY: Patient states she lives with her roommate. MENTAL STATUS EXAMINATION: The patient is an elderly female. She is alert, awake and oriented to situation. Her mood is depressed and anxious with appropriate affect. She denies any suicidal or homicidal ideation. She denies any hallucination. Thought process is concrete. She did not elicit paranoid or delusional thinking. Insight and judgment are fair. Memory is grossly intact. CURRENT MEDICATION 1. Metoprolol. 2. Sucralfate. 3. Ipratropium bromide. 4. Albuterol. 5. Acetaminophen/hydrocodone. 6. Ativan 1 mg b.i.d. p.r.n. 7. Lovenox. 8. Doxycycline. 9. Amlodipine. 10. Famotidine. 11. Aspirin. 12. Docusate. 13. Prednisone. 14. Ondansetron. 15. Acetaminophen. 16. Hydralazine. 17. Atorvastatin. 18. Temazepam 15 mg p.o. nightly p.r.n. 19. Protonix. 20. Remeron 15 mg p.o. nightly. 21. Lasix. CURRENT LAB: WBC is 8.38, RBC 3.59, hemoglobin 10, hematocrit 31.3, platelets 256. Sodium 144, potassium 4, chloride 111, CO2 26, BUN 10. AST 16, ALT 14. TOXICOLOGY: Positive for benzo. ASSESSMENT: Major depressive disorder, recurrent, moderate; generalized anxiety disorder. PLAN 1. Continue with Ativan 1 mg p.o. b.i.d. p.r.n. 2. Add Neurontin 100 mg p.o. b.i.d. 3. Continue with Remeron 15 mg p.o. nightly. 4. Continue with temazepam 15 mg p.o. nightly p.r.n. 5. Supportive therapy. Thank you for this consultation. Dictated by: LIANNA Welch Job#: [id number] EV
[2018-05-03 20:00] VITALS: BP 127/85
[2018-05-03] MEDS: ATORVASTATIN 40 MG TAB PO SCH (20:11)
[2018-05-03] MEDS: MIRTAZAPINE 15 MG TAB PO SCH (20:20)
[2018-05-03] MEDS ORDERED: NON-FORMULARY MEDICATION (Atorvastatin Calcium 40 MG) PO SCH (21:00)
[2018-05-04] VITALS: BP 112/68
[2018-05-04] MEDS: LORAZEPAM 1 MG TAB PO PRN ×2 (00:08→10:33)
[2018-05-04] MEDS: ALBUTEROL SULF 0.083% NEB SOLN 3 ML NEB NEB SCH ×6 (03:00→23:15)
[2018-05-04] MEDS: IPRATROPIUM BROMIDE 0.02% 2.5 ML NEB NEB SCH ×6 (03:00→23:15)
[2018-05-04 04:00] VITALS: BP 121/63
[2018-05-04 06:26] LABS: BASOPHILS % 0.1 % (0.0-1.0); HEMATOCRIT 29.6 % (34.2-44.1); HEMOGLOBIN 9.4 g/dL (12.0-16.0); LYMPHOCYTES # (AUTO) 1.8 (1.0-3.2); LYMPHOCYTES % 11.3 % (18.0-39.1); MEAN CORPUSCULAR HEMOGLOBIN 28.2 pg (28-32); MEAN CORPUSCULAR HGB CONC 31.8 g/dL (31-35); MEAN CORPUSCULAR VOLUME 88.9 fL (81-99); MONOCYTES # (AUTO) 1.2 (0.2-0.8); MONOCYTES % 7.8 % (4.4-11.3); NEUTROPHILS # (AUTO) 12.8 (2.1-6.9); NEUTROPHILS % 80.1 % (38.7-80.0); PLATELET COUNT 292 x10e3/uL (140-360); RED BLOOD COUNT 3.33 x10e6/uL (3.6-5.1); RED CELL DISTRIBUTION WIDTH 13.7 % (11.7-14.4)
[2018-05-04] MEDS: HYDROCODONE/APAP 7.5MG-325MG 1 EA TAB PO PRN ×3 (06:33→20:36)
[2018-05-04 06:44] LABS: ANION GAP 10.8 mmol/L (8-16); BLOOD UREA NITROGEN 16 mg/dL (7-26); BUN/CREATININE RATIO 27 (6-25); CALCIUM 9.2 mg/dL (8.4-10.2); CARBON DIOXIDE 29 mmol/L (22-29); CHLORIDE 109 mmol/L (98-107); CREATININE, SERUM 0.59 mg/dL (0.57-1.11); EST GLOMERULAR FILTRATION RATE > 60 ML/MIN (60-); GLUCOSE 112 mg/dL (74-118); MAGNESIUM 1.9 MG/DL (1.3-2.1); POTASSIUM 3.8 mmol/L (3.5-5.1); SODIUM 145 mmol/L (136-145)
[2018-05-04 07:06] LABS: FREE T4 (FREE THYROXINE) 0.94 ng/dL (0.9-1.8); THYROID STIMULATING HORMONE 0.285 uIU/mL (0.350-4.940)
[2018-05-04] MEDS: PANTOPRAZOLE SOD 40 MG TABEC PO SCH (07:40)
[2018-05-04] MEDS: SUCRALFATE 1 GM TAB PO SCH ×4 (07:42→20:37)
[2018-05-04] MEDS: ASPIRIN 81 MG ENTERIC COATED PO SCH (08:02)
[2018-05-04] MEDS: DOCUSATE SODIUM 100 MG CAP PO SCH ×3 (08:02→17:42)
[2018-05-04] MEDS: PREDNISONE 20 MG TAB PO SCH (08:02)
[2018-05-04] MEDS: GABAPENTIN 100 MG CAP PO SCH ×2 (08:02→16:35)
[2018-05-04] MEDS: ENOXAPARIN SOD INJ 40 MG/0.4 ML SYR SC SCH (08:02)
[2018-05-04] MEDS: METOPROLOL TARTRATE 50 MG TAB PO SCH ×2 (08:05→17:00)
[2018-05-04] MEDS: AMLODIPINE BESYLATE 10 MG TAB PO SCH (08:06)
--- NOTE | 2018-05-04 08:21 | Progress Note ---
DATE: May 04, 2018 TIME: 7:59 a.m. OVERNIGHT: Feeling a little better, but still short of breath. REVIEW OF SYSTEMS: Denies any dizziness or chest pain. PHYSICAL EXAMINATION VITAL SIGNS: Reviewed. GENERAL: A tired-appearing woman resting in bed. HEENT: Anicteric. CARDIOVASCULAR: Normal S1 and S2. LUNGS: She has reduced breath sounds throughout. ABDOMEN: Soft, nontender and nondistended. EXTREMITIES: No edema or calf tenderness. NEUROLOGICAL: Alert and oriented times 3. Moving all extremities. SKIN: Dry. PSYCHIATRIC: Flat affect. LABS: Reviewed. MEDICATIONS: Reviewed. ASSESSMENT: A 57-year-old woman with: 1. Acute exacerbation of chronic obstructive pulmonary disease. 2. Hypertension. 3. Hyperlipidemia. 4. Major depressive disorder. 5. Generalized anxiety disorder. 6. Hypokalemia. 7. Constipation. 8. Insomnia. 9. History of respiratory failure. PLAN 1. Continue steroids, antibiotics and antitussive medications, Pepcid, loratadine. 2. Continue PPI. 3. Continue Lasix and diuretics. 4. Continue mirtazapine. 5. Medication adjustment for major depressive disorder and anxiety disorder per psychiatry. 6. Discharge planning. 7. The patient had new leukocytosis secondary to steroid use. All cultures remain negative. Job#: [id number] ALEX
[2018-05-04] MEDS: DOXYCYCLINE 100MG/NS 100ML 100 ML IV SCH ×2 (08:55→20:37)
[2018-05-04] MEDS: FAMOTIDINE 20 MG/2 ML VIAL IV SCH ×2 (10:15→21:47)
[2018-05-04 11:53] VITALS: BP 127/76
[2018-05-04 12:19] VITALS: BP 120/79
--- NOTE | 2018-05-04 14:11 | Progress Note ---
DATE: May 04, 2018 PULMONARY MEDICINE PROGRESS NOTE SUBJECTIVE: Ms. Erickson was seen and examined at bedside. She continues to have steady progress where there is slight improvement. However, improvement is only slight, and she still has a lot of shortness of breath. She has very extensive dyspnea on mobilization. Patient had a bowel movement times 1 finally. Her abdomen is still distended. REVIEW OF SYSTEMS: No headache. No rash. OBJECTIVE VITALS: Afebrile. Vital signs noted per electronic record. GENERAL: In no acute distress, alert and calm. HEENT: Normocephalic, atraumatic. NECK: Supple. Throat midline. LUNGS: Bilateral air entry. Decreased air entry throughout. Rare rhonchi. CARDIOVASCULAR: S1 and S2. No murmurs, rubs or gallops. ABDOMINAL: Soft, nontender. EXTREMITIES: No clubbing, no cyanosis. There is no edema. INTEGUMENT: No rash, no purpura. LABS: White count 6, 30 hematocrit, 0.6 creatinine. Ultrasound of lower extremities showed no DVT. IMPRESSION AND PLAN 1. Chronic obstructive pulmonary disease with exacerbation. 2. Abdominal dyspepsia and bloating. 3. Low functional endurance. 4. Hypertension. We will order physical therapy to start to work with the patient. Continue oxygen supplementation as needed. Continue steroids as well as bronchodilators. The patient will continue on DVT prophylaxis. Antibiotics for COPD exacerbation. We will continue to hope the patient's stomach gets better, and hopefully the breathing will follow. Job#: [id number]
--- NOTE | 2018-05-04 15:20 | Progress Note ---
DATE: May 04, 2018 PSYCHIATRIC PROGRESS NOTE Patient evaluated and events noted. Patient is sitting in the chair in her room. She is sleeping but easily arousable. She states that she is feeling less anxious and less depressed. She reports increased sleep. She denies any suicidal ideation. She denies any hallucinations. She denies any side effects to medications. ASSESSMENT: Major depressive disorder, recurrent, moderate; generalized anxiety disorder. PLAN 1. Continue with Ativan 1 mg p.o. b.i.d. p.r.n. 2. Continue Neurontin 100 mg p.o. b.i.d. 3. Continue with Remeron 15 mg p.o. nightly. 4. Continue with temazepam p.r.n. 5. Supportive therapy. Dictated by: LIANNA Welch Job#: [id number]
[2018-05-04 15:54] VITALS: BP 100/68
[2018-05-04 20:00] VITALS: BP 133/71
[2018-05-04] MEDS: MIRTAZAPINE 15 MG TAB PO SCH (20:37)
[2018-05-04] MEDS: ATORVASTATIN 40 MG TAB PO SCH (20:37)
[2018-05-05] VITALS: BP 117/60
[2018-05-05] MEDS: LORAZEPAM 1 MG TAB PO PRN (02:41)
[2018-05-05] MEDS: ALBUTEROL SULF 0.083% NEB SOLN 3 ML NEB NEB SCH ×5 (03:00→15:57)
[2018-05-05] MEDS: IPRATROPIUM BROMIDE 0.02% 2.5 ML NEB NEB SCH ×4 (03:00→15:00)
[2018-05-05 04:00] VITALS: BP 123/65
[2018-05-05 06:24] LABS: BASOPHILS % 0.2 % (0.0-1.0); EOSINOPHILS # (AUTO) 0.1 (0.0-0.4); EOSINOPHILS % 0.9 % (0.0-6.0); HEMATOCRIT 29.9 % (34.2-44.1); HEMOGLOBIN 9.3 g/dL (12.0-16.0); LYMPHOCYTES # (AUTO) 3.2 (1.0-3.2); LYMPHOCYTES % 24.9 % (18.0-39.1); MEAN CORPUSCULAR HEMOGLOBIN 27.6 pg (28-32); MEAN CORPUSCULAR HGB CONC 31.1 g/dL (31-35); MEAN CORPUSCULAR VOLUME 88.7 fL (81-99); MONOCYTES % 7.9 % (4.4-11.3); NEUTROPHILS # (AUTO) 8.4 (2.1-6.9); NEUTROPHILS % 65.2 % (38.7-80.0); PLATELET COUNT 313 x10e3/uL (140-360); RED BLOOD COUNT 3.37 x10e6/uL (3.6-5.1); RED CELL DISTRIBUTION WIDTH 13.7 % (11.7-14.4)
[2018-05-05 06:55] LABS: ANION GAP 9.5 mmol/L (8-16); BLOOD UREA NITROGEN 15 mg/dL (7-26); BUN/CREATININE RATIO 25 (6-25); CALCIUM 9.1 mg/dL (8.4-10.2); CARBON DIOXIDE 32 mmol/L (22-29); CHLORIDE 109 mmol/L (98-107); EST GLOMERULAR FILTRATION RATE > 60 ML/MIN (60-); GLUCOSE 94 mg/dL (74-118); MAGNESIUM 1.9 MG/DL (1.3-2.1); POTASSIUM 3.5 mmol/L (3.5-5.1); SODIUM 147 mmol/L (136-145)
[2018-05-05 07:23] VITALS: BP 132/59
[2018-05-05 07:45] VITALS: BP 132/59
[2018-05-05] MEDS: HYDROCODONE/APAP 7.5MG-325MG 1 EA TAB PO PRN (07:45)
[2018-05-05] MEDS: SUCRALFATE 1 GM TAB PO SCH ×2 (07:48→12:00)
[2018-05-05] MEDS: PANTOPRAZOLE SOD 40 MG TABEC PO SCH (07:48)
[2018-05-05] MEDS: DOXYCYCLINE 100MG/NS 100ML 100 ML IV SCH (09:00)
[2018-05-05] MEDS: GABAPENTIN 100 MG CAP PO SCH (09:52)
[2018-05-05] MEDS: AMLODIPINE BESYLATE 10 MG TAB PO SCH (09:52)
[2018-05-05] MEDS: ENOXAPARIN SOD INJ 40 MG/0.4 ML SYR SC SCH (09:52)
[2018-05-05] MEDS: PREDNISONE 20 MG TAB PO SCH (09:52)
[2018-05-05] MEDS: METOPROLOL TARTRATE 50 MG TAB PO SCH (09:53)
[2018-05-05] MEDS: ASPIRIN 81 MG ENTERIC COATED PO SCH (09:53)
[2018-05-05] MEDS ORDERED: FENTANYL 75MCG/HR PATCH TD SCH ×2 (10:00→12:00)
[2018-05-05] MEDS ORDERED: PREDNISONE PO (10:32)
[2018-05-05] MEDS ORDERED: DOXYCYCLINE PO (10:32)
[2018-05-05] MEDS ORDERED: MUCINEX DM ER1 EACH PO (10:32)
[2018-05-05] MEDS ORDERED: GABAPENTIN100 MG PO (10:32)
[2018-05-05] MEDS ORDERED: Albuterol/Ipratropium Nebulize NEB (10:32)
[2018-05-05] MEDS: FAMOTIDINE 20 MG/2 ML VIAL IV SCH (10:45)
[2018-05-05 11:22] VITALS: BP 147/80
--- NOTE | 2018-05-05 12:51 | Progress Note ---
DATE: May 05, 2018 PULMONARY MEDICINE PROGRESS NOTE SUBJECTIVE: Ms. Erickson was seen and examined at bedside. She continues to have some shortness of breath. However, she has gotten better. She regulated and modified her diet yesterday. She has a lot less abdominal distention today. She also had a bowel movement. REVIEW OF SYSTEMS: No headache, no rash. OBJECTIVE VITAL SIGNS: Afebrile. Vital signs noted per electronic chart record. GENERAL: No acute distress, alert and calm. HEENT: Normocephalic, atraumatic. NECK: Supple. Throat midline. LUNGS: Bilateral air entry, decreased breath sounds throughout, rare rhonchi. CARDIOVASCULAR: S1, S2. No murmurs, rubs, or gallops. ABDOMEN: Soft, nontender. EXTREMITIES: No clubbing, no cyanosis. There is no edema. INTEGUMENT: No rash, no purpura. LABS: Potassium 2.5, 0.6 creatinine. White count 13, 30 hematocrit. IMPRESSION AND PLAN 1. Chronic obstructive pulmonary disease with exacerbation. 2. Abdominal distention. 3. Chronic dyspepsia, gastropathy. 4. Chronic smoker. Continue attempts to try to quit smoking. Patient will continue on steroids. Continue bronchodilators. Continue modified GI diet to allow patient to continue to improve. Job#: [id number] MARÍA ELENA
[2018-05-05 15:37] VITALS: BP 124/61
--- NOTE | 2018-05-05 16:25 | Progress Note ---
DATE: May 05, 2018 PSYCHIATRIC PROGRESS NOTE Patient evaluated and events noted. Patient is sitting in her room. She is alert, awake and oriented to situation. She reports only intermittent anxiety. She reports less depressed. She denies any hallucination. She denies any suicidal ideation. She reports intermittent appetite issues due to her medical problem. She denies any sleep issues. She denies any side effects of medications. She is calm, pleasant and cooperative. ASSESSMENT: Major depressive disorder, recurrent, moderate; generalized anxiety disorder. PLAN 1. Continue Ativan 1 mg p.o. b.i.d. p.r.n. 2. Continue with Remeron 15 mg p.o. nightly. 3. Continue with temazepam p.r.n. 4. Increase Neurontin from 100 mg p.o. b.i.d. to 3 times a day. 5. Supportive therapy. Dictated by: LIANNA Welch Job#: [id number] EV
--- NOTE | 2018-05-05 18:35 | Discharge Summary ---
ADMISSION DIAGNOSES 1. Acute exacerbation of chronic obstructive pulmonary disease. 2. Hypertension. 3. Hypernatremia. 4. Hyperlipidemia. 5. Gastroesophageal reflux disease. 6. Gastritis. 7. Hypokalemia. 8. Insomnia. 9. Anxiety. 10. Bilateral lower extremity pain. DISCHARGE DIAGNOSES 1. Acute exacerbation of chronic obstructive pulmonary disease. 2. Hypertension. 3. Hypernatremia. 4. Hyperlipidemia. 5. Gastroesophageal reflux disease. 6. Gastritis. 7. Hypokalemia. 8. Insomnia. 9. Anxiety. 10. Bilateral lower extremity pain. 11. Ruled out urinary tract infection. 12. Anemia. 13. Depression. HISTORY: Patient has a history of COPD, hypertension, anxiety, insomnia, GERD, GI bleed, CHF, OA, right breast lumpectomy which was benign, gastritis, esophagitis and hyperlipidemia. HOSPITAL COURSE: A 57-year-old female was admitted with shortness of breath for the past few days, prompting her visit to the hospital. She denies chest pain and any history of CHF. She did have intermittent left leg swelling and pain. On admission a chest x-ray was done, which was negative. Due to abdominal pain an abdominal x-ray was done, which was also negative. Bilateral lower extremity venous Doppler was negative. Echo showed 50% to 55% EF with mild tricuspid regurge. An EKG showed sinus tach. Psych was consulted because patient began to cry upon initial assessment due to stress related to apparently being tested positive for cocaine in her primary care's office multiple times. She denies cocaine use, but her primary care will no longer fill her pain prescriptions. She is really distraught about that because she says she does not do drugs. A urine drug screen was done at the hospital, which was only positive for benzodiazepines. Per Psych, patient was continued on Ativan b.i.d. and gabapentin b.i.d. added, Remeron and temazepam continued. Blood cultures were negative. WBC was within normal limits until steroids were started. Patient remained afebrile. At time of discharge, WBC is 12.87, hemoglobin 9.3, hematocrit 29.9. Sodium 147, creatinine 0.6, GFR of over 60. Troponins negative. stable. Patient afebrile. She will discharge home with tapered steroids, antibiotics, Mucinex and nebs. She will follow up with primary care in 1 to 2 weeks. She will discharge home with home health for PT/OT and a helper for ADLs. Patient understands the discharge instructions and will follow up as needed. Dictated by: Gina Talley NP MACIE WOLF MD Job#: [id number] EV
[2018-05-05] MEDS ORDERED: GABAPENTIN 100 MG CAP PO SCH (21:00)
== END 2018-05-05 16:51 | disposition home health service (06) | DRG 191 ==
LOC: ER 20:22 → ERHOLD 22:49 → MED/SURG3 23:12
PROVIDERS: ADMIT Internal Medicine; ATTEND Internal Medicine
DX: J44.1 Chronic obstructive pulmonary disease with (acute) exacerbation (principal); E87.0 Hyperosmolality and hypernatremia; F33.1 Major depressive disorder, recurrent, moderate; E78.5 Hyperlipidemia, unspecified; K21.9 Gastro-esophageal reflux disease without esophagitis; K29.70 Gastritis, unspecified, without bleeding; G47.00 Insomnia, unspecified; E87.6 Hypokalemia; D64.9 Anemia, unspecified; K31.9 Disease of stomach and duodenum, unspecified; F41.9 Anxiety disorder, unspecified; K59.00 Constipation, unspecified; F41.1 Generalized anxiety disorder; F17.210 Nicotine dependence, cigarettes, uncomplicated; I11.0 Hypertensive heart disease with heart failure; I50.9 Heart failure, unspecified
CPT/HCPCS: 36415; 36600; 71045; 80048; 80053; 80061; 80307; 81001; 82550; 82553; 82805; 83036; 83605; 83735; 83880; 84439; 84443; 84484; 85025; 85379; 85610; 85730; 87040; 87086; 93005; 93306; 93970; 94640; 94644; 96367; 96372; 99284; J0456; J1650; J2930; J7030

== ENCOUNTER 2018-05-28 05:41 | Inpatient (IN) | payer MEDICARE, OTHER ==
[~2018-05-28] VITALS: Ht 162.6 cm; Wt 69.9 kg
[~2018-05-28 05:41] MED LIST changes: +DOXYCYCLINE PO
[2018-05-28] MEDS ORDERED: ALBUTEROL SULF 0.083% NEB SOLN 3 ML NEB NEB STA (05:50)
[2018-05-28] MEDS ORDERED: IPRATROPIUM BROMIDE 0.02% 2.5 ML NEB NEB ONE (06:00)
[2018-05-28] MEDS ORDERED: METHYLPREDNISOLONE SOD SUCC 125 MG/2ML VIAL IV ONE (06:00)
[2018-05-28] MEDS ORDERED: ONDANSETRON HCL INJ 2 MG/ML VIAL IV STA (06:05)
[2018-05-28] MEDS ORDERED: ONDANSETRON HCL INJ 2 MG/ML VIAL ONE (06:06)
[2018-05-28 06:30] LABS: BASOPHILS # (AUTO) 0.1 (0.0-0.1); BASOPHILS % 1.1 % (0.0-1.0); EOSINOPHILS # (AUTO) 0.4 (0.0-0.4); EOSINOPHILS % 6.2 % (0.0-6.0); HEMATOCRIT 31.4 % (34.2-44.1); HEMOGLOBIN 9.9 g/dL (12.0-16.0); LYMPHOCYTES # (AUTO) 1.6 (1.0-3.2); LYMPHOCYTES % 24.6 % (18.0-39.1); MEAN CORPUSCULAR HEMOGLOBIN 27.7 pg (28-32); MEAN CORPUSCULAR HGB CONC 31.5 g/dL (31-35); MONOCYTES # (AUTO) 0.7 (0.2-0.8); MONOCYTES % 10.6 % (4.4-11.3); NEUTROPHILS # (AUTO) 3.7 (2.1-6.9); NEUTROPHILS % 57.3 % (38.7-80.0); PLATELET COUNT 212 x10e3/uL (140-360); RED BLOOD COUNT 3.57 x10e6/uL (3.6-5.1); RED CELL DISTRIBUTION WIDTH 13.2 % (11.7-14.4)
[2018-05-28] MEDS ORDERED: DIPHENHYDRAMINE HCL INJ 50 MG/ML VIAL IV ONE (06:30)
--- NOTE | 2018-05-28 06:30 | Diagnostic Imaging Report ---
EXAMINATION: CHEST SINGLE (PORTABLE) INDICATION: Shortness of breath COMPARISON: 05/02/2018 FINDINGS: TUBES and LINES: None. LUNGS: Lungs are well inflated. Stable left midlung calcified granuloma There is no evidence of pneumonia or pulmonary edema. PLEURA: No pleural effusion or pneumothorax. HEART AND MEDIASTINUM: The cardiomediastinal silhouette is unremarkable. BONES AND SOFT TISSUES: No acute osseous lesion. Soft tissues are unremarkable. UPPER ABDOMEN: No free air under the diaphragm. IMPRESSION: No acute thoracic abnormality. Signed by: Dr. Clement Person M.D. on 05/28/2018 6:48 AM
[2018-05-28 06:39] LABS: ALANINE AMINOTRANSFERASE 15 IU/L (0-55); ALBUMIN 3.7 g/dL (3.5-5.0); ALBUMIN/GLOBULIN RATIO 1.2 (0.8-2.0); ALKALINE PHOSPHATASE 56 IU/L (40-150); ANION GAP 11.9 mmol/L (8-16); BLOOD UREA NITROGEN 9 mg/dL (7-26); BUN/CREATININE RATIO 14 (6-25); CALCIUM 9.5 mg/dL (8.4-10.2); CARBON DIOXIDE 31 mmol/L (22-29); CHLORIDE 103 mmol/L (98-107); CREATINE KINASE 74 IU/L (29-168); CREATININE, SERUM 0.63 mg/dL (0.57-1.11); EST GLOMERULAR FILTRATION RATE > 60 ML/MIN (60-); GLUCOSE 98 mg/dL (74-118); POTASSIUM 3.9 mmol/L (3.5-5.1); SODIUM 142 mmol/L (136-145)
[2018-05-28] MEDS ORDERED: ALBUTEROL/IPRATROPIUM 3 ML NEB NEB SCH ×2 (07:00→11:00)
[2018-05-28] MEDS ORDERED: CEFTRIAXONE SOD 1 GM VIAL IV SCH (07:00)
[2018-05-28] MEDS ORDERED: AZITHROMYCIN 500MG/SOD CHL 0.9% 250ML BAG IV SCH (07:00)
[2018-05-28] MEDS ORDERED: HYDROCODONE/APAP 10MG-325MG TAB PO PRN (07:15)
[2018-05-28] MEDS ORDERED: DOXYCYCLINE 100MG/NS 100ML 100 ML IV SCH ×2 (07:15→09:00)
[2018-05-28] MEDS ORDERED: TEMAZEPAM 15 MG CAP PO PRN (07:15)
[2018-05-28] MEDS ORDERED: FAMOTIDINE 20 MG TAB PO SCH (07:30)
[2018-05-28] MEDS ORDERED: HYDRALAZINE HCL 20 MG/ML VIAL IV PRN (07:30)
[2018-05-28] MEDS ORDERED: ONDANSETRON HCL INJ 2 MG/ML VIAL IV PRN (07:30)
[2018-05-28] MEDS ORDERED: ACETAMINOPHEN 325 MG TAB PO PRN (07:30)
[2018-05-28 07:57] VITALS: BP 121/65
[2018-05-28 08:00] VITALS: BP 121/65
[2018-05-28] MEDS: PANTOPRAZOLE SOD 40 MG TABEC PO SCH (09:12)
[2018-05-28] MEDS: METOPROLOL TARTRATE 50 MG TAB PO SCH ×2 (09:12→17:44)
[2018-05-28] MEDS: DOCUSATE SODIUM 100 MG CAP PO SCH ×2 (09:12→17:00)
[2018-05-28] MEDS: ENOXAPARIN SOD INJ 40 MG/0.4 ML SYR SC SCH (09:13)
[2018-05-28] MEDS: GABAPENTIN 100 MG CAP PO SCH ×2 (09:13→17:44)
[2018-05-28] MEDS: AMLODIPINE BESYLATE 10 MG TAB PO SCH (09:13)
[2018-05-28] MEDS: HYDROCODONE/APAP 10MG-325MG TAB PO PRN ×2 (09:37→20:40)
[2018-05-28] MEDS: LEVALBUTEROL HCL SOLN NEBU 0.63 MG/3 ML NEB INH SCH ×4 (10:00→23:00)
[2018-05-28] MEDS: IPRATROPIUM BROMIDE 0.02% 2.5 ML NEB NEB SCH ×4 (10:35→23:00)
[2018-05-28] MEDS ORDERED: SODIUM CHLORIDE 0.9% 250ML 250 ML ONE (10:48)
[2018-05-28] MEDS: DOXYCYCLINE 100MG/NS 100ML 100 ML IV SCH ×2 (10:57→22:34)
[2018-05-28 11:57] VITALS: BP 115/58
[2018-05-28] MEDS: METHYLPREDNISOLONE SOD SUCC 40 MG/ML VIAL IV SCH ×2 (12:30→18:05)
[2018-05-28] MEDS: GUAIFENESIN 600MG/DEXTROMETHORPHAN 30MG TABSR PO SCH ×2 (12:30→18:05)
--- NOTE | 2018-05-28 12:38 | Diagnostic Imaging Report ---
PROCEDURE: CHEST XRAY LINE PLACEMENT COMPARISON: Earlier 05/28/2018. INDICATIONS: PICC LINE PLACEMENT FINDINGS: See conclusion CONCLUSION: 1. Interval placement of a left upper extremity PICC. The tip projects over the expected region of the low superior vena cava. 2. Stable appearance of the heart and lungs relative to 0608 hrs. No new consolidations. Dictated by: Antony Enrique M.D. on 05/28/2018 at 12:42 Electronically approved by: Antony Enrique M.D. on 05/28/2018 at 12:42
[2018-05-28 15:10] LABS: CREATINE KINASE 68 IU/L (29-168)
[2018-05-28 16:34] VITALS: BP 110/58
[2018-05-28] MEDS: PROMETHAZINE 12.5MG/ NACL 0.9% 12.5 MG/50 ML BAG IV PRN (17:44)
[2018-05-28] MEDS: LORAZEPAM 1 MG TAB PO PRN (18:30)
[2018-05-28 20:00] VITALS: BP 123/66
[2018-05-28] MEDS: ATORVASTATIN 40 MG TAB PO SCH (20:40)
[2018-05-28] MEDS: MIRTAZAPINE 15 MG TAB PO SCH (20:40)
[2018-05-28] MEDS ORDERED: NON-FORMULARY MEDICATION (Atorvastatin Calcium 40 MG) PO SCH (21:00)
--- NOTE | 2018-05-28 21:44 | Diagnostic Imaging Report ---
EXAM: CT Abdomen and Pelvis WITH contrast INDICATION: Nausea, distended abdomen COMPARISON: None. TECHNIQUE: Abdomen and pelvis were scanned utilizing a multidetector helical scanner from the lung base to the pubic symphysis after administration of IV contrast. Coronal and sagittal reformations were obtained. Routine protocol was performed. Scan was performed when during portal venous phase. IV CONTRAST: 100 mL of Isovue-370 ORAL CONTRAST: None RADIATION DOSE: Total DLP: 456.08 mGy*cm Estimated effective dose: (DLP x 0.015 x size factor) mSv COMPLICATIONS: None FINDINGS: LINES and TUBES: None. LOWER THORAX: Small sliding hiatal hernia HEPATOBILIARY: No focal hepatic lesions. No biliary ductal dilation. GALLBLADDER: No radio-opaque stones or sludge. No wall thickening. SPLEEN: No splenomegaly. PANCREAS: No focal masses or ductal dilatation. ADRENALS: No adrenal nodules KIDNEYS/URETERS: Kidneys enhance symmetrically. No hydronephrosis. There are few bilateral too small to characterize hypodensities, likely benign. No stones. GI TRACT: No abnormal distention, wall thickening, or evidence of bowel obstruction. There are diverticula within the colon without evidence of diverticulitis. Appendix is not clearly identified. There is however no fat stranding or adenopathy in the right lower quadrant to suggest appendicitis. PELVIC ORGANS/BLADDER: Unremarkable. LYMPH NODES: No lymphadenopathy. VESSELS: There is moderate atherosclerotic disease in the aorta and major arterial branches. PERITONEUM / RETROPERITONEUM: No free air or fluid. BONES: Unremarkable. SOFT TISSUES: Unremarkable. IMPRESSION: 1. No evidence of acute intra-abdominal or pelvic abnormalities. 2. Small sliding hiatal hernia. Signed by: Dr. Clement Person M.D. on 05/28/2018 9:40 PM
[2018-05-29] VITALS (8 sets, daily range): BP systolic 111–156; BP diastolic 56–86
[2018-05-29] MEDS: GUAIFENESIN 600MG/DEXTROMETHORPHAN 30MG TABSR PO SCH ×4 (00:09→17:27)
[2018-05-29] MEDS: METHYLPREDNISOLONE SOD SUCC 40 MG/ML VIAL IV SCH ×3 (00:09→20:18)
[2018-05-29] MEDS ORDERED: SODIUM CHLORIDE 0.9% 50ML 50 ML ONE (01:25)
[2018-05-29] MEDS ORDERED: IOPAMIDOL 370 MG/ML 200 ML INFUS..BTL INJ ONE (01:27)
[2018-05-29] MEDS: IPRATROPIUM BROMIDE 0.02% 2.5 ML NEB NEB SCH ×6 (03:00→23:00)
[2018-05-29 03:01] LABS: BASOPHILS % 0.2 % (0.0-1.0); HEMATOCRIT 30.7 % (34.2-44.1); HEMOGLOBIN 9.5 g/dL (12.0-16.0); LYMPHOCYTES # (AUTO) 0.6 (1.0-3.2); LYMPHOCYTES % 9.4 % (18.0-39.1); MEAN CORPUSCULAR HEMOGLOBIN 27.7 pg (28-32); MEAN CORPUSCULAR HGB CONC 30.9 g/dL (31-35); MEAN CORPUSCULAR VOLUME 89.5 fL (81-99); MONOCYTES # (AUTO) 0.1 (0.2-0.8); MONOCYTES % 1.5 % (4.4-11.3); NEUTROPHILS # (AUTO) 5.2 (2.1-6.9); NEUTROPHILS % 88.4 % (38.7-80.0); PLATELET COUNT 229 x10e3/uL (140-360); RED BLOOD COUNT 3.43 x10e6/uL (3.6-5.1); RED CELL DISTRIBUTION WIDTH 13.3 % (11.7-14.4)
[2018-05-29 03:24] LABS: ANION GAP 11.1 mmol/L (8-16); BLOOD UREA NITROGEN 10 mg/dL (7-26); BUN/CREATININE RATIO 16 (6-25); CALCIUM 9.4 mg/dL (8.4-10.2); CARBON DIOXIDE 30 mmol/L (22-29); CHLORIDE 107 mmol/L (98-107); CREATININE, SERUM 0.62 mg/dL (0.57-1.11); EST GLOMERULAR FILTRATION RATE > 60 ML/MIN (60-); GLUCOSE 137 mg/dL (74-118); MAGNESIUM 2.2 MG/DL (1.3-2.1); POTASSIUM 4.1 mmol/L (3.5-5.1); SODIUM 144 mmol/L (136-145)
[2018-05-29] MEDS: LEVALBUTEROL HCL SOLN NEBU 0.63 MG/3 ML NEB INH SCH ×6 (03:30→23:00)
[2018-05-29] MEDS: HYDROCODONE/APAP 10MG-325MG TAB PO PRN ×2 (04:27→20:19)
[2018-05-29] MEDS ORDERED: PANTOPRAZOLE SOD 40 MG TABEC PO SCH (07:30)
[2018-05-29] MEDS: PANTOPRAZOLE SOD 40 MG TABEC PO SCH (07:48)
[2018-05-29] MEDS: METOPROLOL TARTRATE 50 MG TAB PO SCH ×2 (07:49→17:27)
[2018-05-29] MEDS: DOCUSATE SODIUM 100 MG CAP PO SCH ×2 (07:49→17:00)
[2018-05-29] MEDS: GABAPENTIN 100 MG CAP PO SCH ×2 (07:49→17:27)
[2018-05-29] MEDS: ENOXAPARIN SOD INJ 40 MG/0.4 ML SYR SC SCH (07:49)
[2018-05-29] MEDS: AMLODIPINE BESYLATE 10 MG TAB PO SCH (07:49)
[2018-05-29 07:50] LABS: CREATINE KINASE 48 IU/L (29-168)
[2018-05-29] MEDS: LORAZEPAM 1 MG TAB PO PRN (11:27)
[2018-05-29] MEDS: DOXYCYCLINE 100MG/NS 100ML 100 ML IV SCH ×2 (11:33→22:57)
[2018-05-29] MEDS: ATORVASTATIN 40 MG TAB PO SCH (20:18)
[2018-05-29] MEDS: MIRTAZAPINE 15 MG TAB PO SCH (20:19)
[2018-05-30] VITALS (9 sets, daily range): BP systolic 123–141; BP diastolic 61–81
[2018-05-30] MEDS: GUAIFENESIN 600MG/DEXTROMETHORPHAN 30MG TABSR PO SCH ×4 (01:04→17:38)
[2018-05-30] MEDS: IPRATROPIUM BROMIDE 0.02% 2.5 ML NEB NEB SCH ×6 (03:00→23:00)
[2018-05-30] MEDS: LEVALBUTEROL HCL SOLN NEBU 0.63 MG/3 ML NEB INH SCH ×6 (03:00→23:00)
[2018-05-30] MEDS: LORAZEPAM 1 MG TAB PO PRN ×2 (03:35→16:13)
[2018-05-30 03:54] LABS: BASOPHILS % 0.2 % (0.0-1.0); HEMATOCRIT 36.7 % (34.2-44.1); HEMOGLOBIN 11.4 g/dL (12.0-16.0); LYMPHOCYTES # (AUTO) 1.1 (1.0-3.2); LYMPHOCYTES % 6.8 % (18.0-39.1); MEAN CORPUSCULAR HEMOGLOBIN 27.7 pg (28-32); MEAN CORPUSCULAR HGB CONC 31.1 g/dL (31-35); MEAN CORPUSCULAR VOLUME 89.3 fL (81-99); MONOCYTES # (AUTO) 0.5 (0.2-0.8); MONOCYTES % 2.7 % (4.4-11.3); NEUTROPHILS # (AUTO) 15.1 (2.1-6.9); NEUTROPHILS % 89.4 % (38.7-80.0); PLATELET COUNT 299 x10e3/uL (140-360); RED BLOOD COUNT 4.11 x10e6/uL (3.6-5.1); RED CELL DISTRIBUTION WIDTH 13.6 % (11.7-14.4)
[2018-05-30 04:13] LABS: ANION GAP 16.1 mmol/L (8-16); BLOOD UREA NITROGEN 20 mg/dL (7-26); BUN/CREATININE RATIO 27 (6-25); CALCIUM 10.2 mg/dL (8.4-10.2); CARBON DIOXIDE 28 mmol/L (22-29); CHLORIDE 106 mmol/L (98-107); CREATININE, SERUM 0.73 mg/dL (0.57-1.11); EST GLOMERULAR FILTRATION RATE > 60 ML/MIN (60-); GLUCOSE 158 mg/dL (74-118); MAGNESIUM 2.1 MG/DL (1.3-2.1); POTASSIUM 4.1 mmol/L (3.5-5.1); SODIUM 146 mmol/L (136-145)
[2018-05-30] MEDS: DOCUSATE SODIUM 100 MG CAP PO SCH ×2 (08:00→17:38)
[2018-05-30] MEDS: GABAPENTIN 100 MG CAP PO SCH ×2 (08:00→17:38)
[2018-05-30] MEDS: PANTOPRAZOLE SOD 40 MG TABEC PO SCH (08:00)
[2018-05-30] MEDS: AMLODIPINE BESYLATE 10 MG TAB PO SCH (08:00)
[2018-05-30] MEDS: METOPROLOL TARTRATE 50 MG TAB PO SCH ×2 (08:00→17:38)
[2018-05-30] MEDS: ENOXAPARIN SOD INJ 40 MG/0.4 ML SYR SC SCH (08:00)
[2018-05-30] MEDS: METHYLPREDNISOLONE SOD SUCC 40 MG/ML VIAL IV SCH ×3 (08:09→21:31)
[2018-05-30] MEDS: PROMETHAZINE 12.5MG/ NACL 0.9% 12.5 MG/50 ML BAG IV PRN (09:25)
[2018-05-30] MEDS: HYDROCODONE/APAP 10MG-325MG TAB PO PRN ×2 (10:05→19:21)
[2018-05-30] MEDS ORDERED: DEXTROSE 5%/0.45% SOD CHL 1,000 ML IV ONE (11:00)
[2018-05-30] MEDS ORDERED: ALTEPLASE RECOMBINANT 2 MG/2 ML VIAL IV PRN (11:00)
[2018-05-30] MEDS: DOXYCYCLINE 100MG/NS 100ML 100 ML IV SCH (11:10)
[2018-05-30] MEDS: MIRTAZAPINE 15 MG TAB PO SCH (21:31)
[2018-05-30] MEDS: ATORVASTATIN 40 MG TAB PO SCH (21:31)
[2018-05-31] VITALS (8 sets, daily range): BP systolic 130–157; BP diastolic 66–88
[2018-05-31] MEDS: DOXYCYCLINE 100MG/NS 100ML 100 ML IV SCH ×3 (00:20→23:04)
[2018-05-31] MEDS: GUAIFENESIN 600MG/DEXTROMETHORPHAN 30MG TABSR PO SCH ×5 (00:20→23:05)
[2018-05-31] MEDS: LEVALBUTEROL HCL SOLN NEBU 0.63 MG/3 ML NEB INH SCH ×6 (03:00→23:30)
[2018-05-31] MEDS: IPRATROPIUM BROMIDE 0.02% 2.5 ML NEB NEB SCH ×6 (03:00→23:30)
[2018-05-31] MEDS: LORAZEPAM 1 MG TAB PO PRN ×2 (03:00→20:38)
[2018-05-31] MEDS: HYDROCODONE/APAP 10MG-325MG TAB PO PRN ×4 (03:45→21:44)
[2018-05-31 03:48] LABS: BASOPHILS % 0.1 % (0.0-1.0); HEMATOCRIT 29.9 % (34.2-44.1); HEMOGLOBIN 9.4 g/dL (12.0-16.0); LYMPHOCYTES % 7.2 % (18.0-39.1); MEAN CORPUSCULAR HGB CONC 31.4 g/dL (31-35); MONOCYTES # (AUTO) 0.7 (0.2-0.8); MONOCYTES % 4.6 % (4.4-11.3); NEUTROPHILS # (AUTO) 12.2 (2.1-6.9); NEUTROPHILS % 86.7 % (38.7-80.0); PLATELET COUNT 268 x10e3/uL (140-360); RED BLOOD COUNT 3.36 x10e6/uL (3.6-5.1); RED CELL DISTRIBUTION WIDTH 13.6 % (11.7-14.4)
[2018-05-31 04:01] LABS: ANION GAP 10.8 mmol/L (8-16); BLOOD UREA NITROGEN 16 mg/dL (7-26); BUN/CREATININE RATIO 27 (6-25); CALCIUM 9.3 mg/dL (8.4-10.2); CARBON DIOXIDE 31 mmol/L (22-29); CHLORIDE 108 mmol/L (98-107); EST GLOMERULAR FILTRATION RATE > 60 ML/MIN (60-); GLUCOSE 152 mg/dL (74-118); POTASSIUM 3.8 mmol/L (3.5-5.1); SODIUM 146 mmol/L (136-145)
[2018-05-31] MEDS: METHYLPREDNISOLONE SOD SUCC 40 MG/ML VIAL IV SCH ×3 (05:37→21:43)
[2018-05-31] MEDS: PANTOPRAZOLE SOD 40 MG TABEC PO SCH (08:56)
[2018-05-31] MEDS: AMLODIPINE BESYLATE 10 MG TAB PO SCH (08:56)
[2018-05-31] MEDS: GABAPENTIN 100 MG CAP PO SCH ×2 (08:56→17:02)
[2018-05-31] MEDS: DOCUSATE SODIUM 100 MG CAP PO SCH ×2 (08:56→17:02)
[2018-05-31] MEDS: ENOXAPARIN SOD INJ 40 MG/0.4 ML SYR SC SCH (08:56)
[2018-05-31] MEDS: METOPROLOL TARTRATE 50 MG TAB PO SCH ×2 (08:56→17:02)
[2018-05-31] MEDS: ATORVASTATIN 40 MG TAB PO SCH (21:43)
[2018-05-31] MEDS: MIRTAZAPINE 15 MG TAB PO SCH (21:43)
[2018-06-01] VITALS (7 sets, daily range): BP systolic 133–156; BP diastolic 74–93
[2018-06-01 03:15] LABS: BASOPHILS % 0.1 % (0.0-1.0); HEMATOCRIT 30.1 % (34.2-44.1); HEMOGLOBIN 9.5 g/dL (12.0-16.0); LYMPHOCYTES # (AUTO) 1.2 (1.0-3.2); LYMPHOCYTES % 9.1 % (18.0-39.1); MEAN CORPUSCULAR HEMOGLOBIN 27.9 pg (28-32); MEAN CORPUSCULAR HGB CONC 31.6 g/dL (31-35); MEAN CORPUSCULAR VOLUME 88.5 fL (81-99); MONOCYTES # (AUTO) 0.5 (0.2-0.8); MONOCYTES % 3.8 % (4.4-11.3); NEUTROPHILS # (AUTO) 11.4 (2.1-6.9); NEUTROPHILS % 84.8 % (38.7-80.0); PLATELET COUNT 262 x10e3/uL (140-360); RED CELL DISTRIBUTION WIDTH 13.4 % (11.7-14.4)
[2018-06-01] MEDS: LEVALBUTEROL HCL SOLN NEBU 0.63 MG/3 ML NEB INH SCH ×5 (03:30→20:00)
[2018-06-01] MEDS: IPRATROPIUM BROMIDE 0.02% 2.5 ML NEB NEB SCH ×5 (03:30→20:00)
[2018-06-01 03:35] LABS: BLOOD UREA NITROGEN 19 mg/dL (7-26); BUN/CREATININE RATIO 31 (6-25); CALCIUM 9.3 mg/dL (8.4-10.2); CARBON DIOXIDE 32 mmol/L (22-29); CHLORIDE 104 mmol/L (98-107); CREATININE, SERUM 0.62 mg/dL (0.57-1.11); EST GLOMERULAR FILTRATION RATE > 60 ML/MIN (60-); GLUCOSE 140 mg/dL (74-118); MAGNESIUM 1.9 MG/DL (1.3-2.1); SODIUM 143 mmol/L (136-145)
[2018-06-01] MEDS: HYDROCODONE/APAP 10MG-325MG TAB PO PRN ×3 (03:46→21:18)
[2018-06-01] MEDS: METHYLPREDNISOLONE SOD SUCC 40 MG/ML VIAL IV SCH ×2 (06:02→21:18)
[2018-06-01] MEDS: GUAIFENESIN 600MG/DEXTROMETHORPHAN 30MG TABSR PO SCH ×3 (06:02→17:16)
[2018-06-01] MEDS: AMLODIPINE BESYLATE 10 MG TAB PO SCH (09:00)
[2018-06-01] MEDS: GABAPENTIN 100 MG CAP PO SCH ×2 (09:00→17:00)
[2018-06-01] MEDS: DOCUSATE SODIUM 100 MG CAP PO SCH ×2 (09:00→16:54)
[2018-06-01] MEDS: ENOXAPARIN SOD INJ 40 MG/0.4 ML SYR SC SCH (09:00)
[2018-06-01] MEDS: METOPROLOL TARTRATE 50 MG TAB PO SCH ×2 (09:00→17:00)
[2018-06-01] MEDS: PANTOPRAZOLE SOD 40 MG TABEC PO SCH (09:00)
[2018-06-01] MEDS: LORAZEPAM 1 MG TAB PO PRN (09:51)
[2018-06-01] MEDS: DOXYCYCLINE 100MG/NS 100ML 100 ML IV SCH ×2 (11:00→23:00)
[2018-06-01] MEDS: ATORVASTATIN 40 MG TAB PO SCH (21:17)
[2018-06-01] MEDS: MIRTAZAPINE 15 MG TAB PO SCH (21:17)
[2018-06-02 00:36] VITALS: BP 152/81
[2018-06-02] MEDS: LORAZEPAM 1 MG TAB PO PRN (03:02)
[2018-06-02] MEDS: IPRATROPIUM BROMIDE 0.02% 2.5 ML NEB NEB SCH ×3 (03:15→10:30)
[2018-06-02] MEDS: LEVALBUTEROL HCL SOLN NEBU 0.63 MG/3 ML NEB INH SCH ×3 (03:15→10:30)
[2018-06-02 03:16] LABS: BASOPHILS % 0.2 % (0.0-1.0); HEMATOCRIT 30.7 % (34.2-44.1); HEMOGLOBIN 9.7 g/dL (12.0-16.0); LYMPHOCYTES # (AUTO) 1.4 (1.0-3.2); LYMPHOCYTES % 11.5 % (18.0-39.1); MEAN CORPUSCULAR HEMOGLOBIN 27.9 pg (28-32); MEAN CORPUSCULAR HGB CONC 31.6 g/dL (31-35); MEAN CORPUSCULAR VOLUME 88.2 fL (81-99); MONOCYTES # (AUTO) 0.5 (0.2-0.8); MONOCYTES % 4.6 % (4.4-11.3); NEUTROPHILS # (AUTO) 9.5 (2.1-6.9); NEUTROPHILS % 80.5 % (38.7-80.0); PLATELET COUNT 301 x10e3/uL (140-360); RED BLOOD COUNT 3.48 x10e6/uL (3.6-5.1); RED CELL DISTRIBUTION WIDTH 13.5 % (11.7-14.4)
[2018-06-02 03:32] LABS: BLOOD UREA NITROGEN 21 mg/dL (7-26); BUN/CREATININE RATIO 32 (6-25); CARBON DIOXIDE 33 mmol/L (22-29); CHLORIDE 104 mmol/L (98-107); CREATININE, SERUM 0.65 mg/dL (0.57-1.11); EST GLOMERULAR FILTRATION RATE > 60 ML/MIN (60-); GLUCOSE 154 mg/dL (74-118); MAGNESIUM 1.9 MG/DL (1.3-2.1); SODIUM 143 mmol/L (136-145)
[2018-06-02 05:54] VITALS: BP 142/81
[2018-06-02] MEDS: GUAIFENESIN 600MG/DEXTROMETHORPHAN 30MG TABSR PO SCH ×2 (06:10)
[2018-06-02 07:30] VITALS: BP 141/80
[2018-06-02] MEDS: HYDROCODONE/APAP 10MG-325MG TAB PO PRN (07:30)
[2018-06-02 07:33] VITALS: BP 141/80
[2018-06-02] MEDS: PANTOPRAZOLE SOD 40 MG TABEC PO SCH (07:45)
[2018-06-02] MEDS: DOCUSATE SODIUM 100 MG CAP PO SCH (09:07)
[2018-06-02] MEDS: METHYLPREDNISOLONE SOD SUCC 40 MG/ML VIAL IV SCH (09:07)
[2018-06-02] MEDS: AMLODIPINE BESYLATE 10 MG TAB PO SCH (09:08)
[2018-06-02] MEDS: GABAPENTIN 100 MG CAP PO SCH (09:08)
[2018-06-02] MEDS: METOPROLOL TARTRATE 50 MG TAB PO SCH (09:08)
[2018-06-02] MEDS: ENOXAPARIN SOD INJ 40 MG/0.4 ML SYR SC SCH (09:08)
[2018-06-02] MEDS ORDERED: PREDNISONE10 MG PO (09:38)
[2018-06-02] MEDS ORDERED: DOXYCYCLINE HY100 MG PO (09:38)
[2018-06-02] MEDS ORDERED: TESSALON PERLE100 MG PO (09:38)
[2018-06-02] MEDS ORDERED: MUCINEX600 MG PO (09:40)
[2018-06-02] MEDS ORDERED: BENZONATATE 100 MG CAP PO PRN (09:45)
[2018-06-02] MEDS: DOXYCYCLINE 100MG/NS 100ML 100 ML IV SCH (10:39)
[2018-06-02 11:27] VITALS: BP 159/77
--- NOTE | 2018-06-03 10:25 | Discharge Summary ---
ADMISSION DIAGNOSES 1. Acute exacerbation of chronic obstructive pulmonary disease. 2. Hypertension. 3. Hyperlipidemia. 4. Insomnia. 5. Depression. 6. Anxiety. 7. Gastroesophageal reflux disease/gastritis. DISCHARGE DIAGNOSES 1. Acute exacerbation of chronic obstructive pulmonary disease. 2. Hypertension. 3. Hyperlipidemia. 4. Insomnia. 5. Depression. 6. Anxiety. 7. Gastroesophageal reflux disease/gastritis. 8. Hypernatremia. 9. Anemia. HISTORY: Patient has a history of COPD, hypertension, hyperlipidemia, anemia, insomnia, anxiety, respiratory failure, GERD/gastritis, depression, GI bleed, CHF, osteoarthritis. Surgical history of right breast lumpectomy, appendectomy and a partial hysterectomy. HOSPITAL COURSE: A 57-year-old female complains of shortness of breath that began this morning. She also complains of nausea that began yesterday with no emesis. She denies fever, dizziness and sick contacts, associated dry cough. Shortness of breath improved with nebs and oxygen. Nausea improved with promethazine but worsened with Zofran. On admission patient had a chest x-ray that showed no acute thoracic abnormality. She had a PICC line placed in the left upper arm due to having poor veins. CT of the abdomen was done that showed no evidence of intra-abdominal or pelvic abnormalities, small sliding hiatal hernia. Patient was started on doxycycline IV, Solu-Medrol, Mucinex nebs and oxygen. She was resumed on home medications for hypertension, hyperlipidemia, insomnia, depression, anxiety and GERD. After a few days on the IV antibiotics, the patient's lungs sounded better and she was able to tolerate activity better. 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 She will discharge home with Tessalon Perles as needed, Mucinex as needed, doxycycline p.o. for 2 more days, and prednisone taper dose. Patient understands discharge instructions, will follow up with Primary Care in 1 to 2 weeks, and is ready for discharge. Dictated by: Gina Talley NP MACIE WOLF MD Job#: [id number] EV
== END 2018-06-02 12:43 | disposition home or self-care (01) | DRG 191 ==
LOC: ER 05:41 → ERHOLD 06:54 → MED/SURG3 07:43
PROVIDERS: ADMIT Internal Medicine; ATTEND Internal Medicine
PROC: 02HV33Z Insertion of Infusion Device into Superior Vena Cava, Percutaneous Approach (ICD-10-PCS; principal; 2018-05-30)
DX: J44.1 Chronic obstructive pulmonary disease with (acute) exacerbation (principal); E87.0 Hyperosmolality and hypernatremia; Z87.891 Personal history of nicotine dependence; I10 Essential (primary) hypertension; E78.5 Hyperlipidemia, unspecified; Z99.81 Dependence on supplemental oxygen; Z86.718 Personal history of other venous thrombosis and embolism; K21.9 Gastro-esophageal reflux disease without esophagitis; G47.00 Insomnia, unspecified; E83.41 Hypermagnesemia; F41.9 Anxiety disorder, unspecified; F32.9 Major depressive disorder, single episode, unspecified; D64.9 Anemia, unspecified
CPT/HCPCS: 36415; 36569; 71045; 74177; 80048; 80053; 82550; 82553; 83735; 83880; 84484; 85025; 93005; 94640; 96361; 96367; 99284; J0456; J0696; J1200; J1650; J2405; J2550; J2920; J2930; J2997; J7050; Q9967

== ENCOUNTER 2018-07-05 10:18 | Inpatient (IN) | payer MEDICARE, OTHER ==
[~2018-07-05] VITALS: Ht 162.6 cm; Wt 77.7 kg
[~2018-07-05 10:18] MED LIST changes: +MUCINEX600 MG PO; +PREDNISONE10 MG PO; +TESSALON PERLE100 MG PO
[2018-07-05] MEDS ORDERED: IPRATROPIUM BROMIDE 0.02% 2.5 ML NEB NEB STA (10:27)
[2018-07-05] MEDS ORDERED: METHYLPREDNISOLONE SOD SUCC 125 MG/2ML VIAL IV STA (10:27)
[2018-07-05] MEDS ORDERED: ALBUTEROL SULF 0.083% NEB SOLN 3 ML NEB NEB STA (10:27)
[2018-07-05] MEDS ORDERED: ASPIRIN 81 MG CHEW TAB PO ONE (10:30)
--- NOTE | 2018-07-05 11:32 | Diagnostic Imaging Report ---
PROCEDURE: A single AP view of the chest. COMPARISON: Chest radiograph 05/28/18. INDICATIONS: SOB FINDINGS: Lines/tubes: None. Lungs: The lungs are well inflated. There is no evidence of pneumonia or pulmonary edema. Pleura: There is no pleural effusion or pneumothorax. Heart and mediastinum: The cardiomediastinal silhouette is unchanged. Bones: No acute bony abnormality. IMPRESSION: No acute cardiopulmonary disease. Dictated by: CAMELIA RANDALL M.D. on 07/05/2018 at 11:37 Electronically approved by: CAMELIA RANDALL M.D. on 07/05/2018 at 11:37
[2018-07-05 12:23] LABS: BASOPHILS # (AUTO) 0.1 (0.0-0.1); BASOPHILS % 0.8 % (0.0-1.0); EOSINOPHILS # (AUTO) 0.2 (0.0-0.4); EOSINOPHILS % 2.8 % (0.0-6.0); HEMATOCRIT 33.7 % (34.2-44.1); HEMOGLOBIN 10.6 g/dL (12.0-16.0); LYMPHOCYTES # (AUTO) 1.5 (1.0-3.2); LYMPHOCYTES % 19.9 % (18.0-39.1); MEAN CORPUSCULAR HEMOGLOBIN 28.1 pg (28-32); MEAN CORPUSCULAR HGB CONC 31.5 g/dL (31-35); MEAN CORPUSCULAR VOLUME 89.4 fL (81-99); MONOCYTES # (AUTO) 0.6 (0.2-0.8); MONOCYTES % 8.5 % (4.4-11.3); NEUTROPHILS % 67.6 % (38.7-80.0); PLATELET COUNT 435 x10e3/uL (140-360); RED BLOOD COUNT 3.77 x10e6/uL (3.6-5.1); RED CELL DISTRIBUTION WIDTH 14.3 % (11.7-14.4)
[2018-07-05 12:30] LABS: INR 1.02; PROTHROMBIN TIME 12.6 seconds (11.9-14.5)
[2018-07-05 12:31] LABS: PARTIAL THROMBOPLASTIN TIME 26.9 seconds (23.8-35.5)
[2018-07-05 12:38] LABS: ALANINE AMINOTRANSFERASE 16 IU/L (0-55); ALBUMIN 3.8 g/dL (3.5-5.0); ALBUMIN/GLOBULIN RATIO 1.1 (0.8-2.0); ALKALINE PHOSPHATASE 55 IU/L (40-150); ANION GAP 12.9 mmol/L (8-16); BLOOD UREA NITROGEN 13 mg/dL (7-26); BUN/CREATININE RATIO 18 (6-25); CALCIUM 9.7 mg/dL (8.4-10.2); CARBON DIOXIDE 29 mmol/L (22-29); CHLORIDE 105 mmol/L (98-107); CREATINE KINASE 83 IU/L (29-168); CREATININE, SERUM 0.74 mg/dL (0.57-1.11); EST GLOMERULAR FILTRATION RATE > 60 ML/MIN (60-); GLUCOSE 98 mg/dL (74-118); POTASSIUM 4.9 mmol/L (3.5-5.1); SODIUM 142 mmol/L (136-145)
[2018-07-05 13:37] LABS: BILIRUBIN,URINE NEGATIVE (NEGATIVE); CLARITY,URINE CLEAR (CLEAR); COLOR,URINE YELLOW (YELLOW); KETONES,URINE NEGATIVE (NEGATIVE); LEUKOCYTE ESTERASE ,URINE NEGATIVE (NEGATIVE); NITRITE,URINE NEGATIVE (NEGATIVE); PROTEIN,URINE DIPSTICK NEGATIVE (NEGATIVE); URINE UROBILINOGEN 0.2 mg/dL (0.2 - 1)
[2018-07-05 13:41] LABS: BACTERIA,URINE RARE /HPF; EPITHELIAL CELLS,URINE FEW /LPF; RBC,URINE 0-5 /HPF (0-5); WBC,URINE (MAN) 0-5 /HPF (0-5)
[2018-07-05] MEDS ORDERED: HYDROMORPHONE 1MG/1ML INJ IV ONE (13:58)
[2018-07-05] MEDS ORDERED: LEVOFLOXACIN 500MG/D5W 100ML 100 ML IV SCH (15:30)
[2018-07-05] MEDS ORDERED: SODIUM CHLORIDE FLUSH 10 ML SYR INJ PRN (15:30)
[2018-07-05 17:00] VITALS: BP 135/62
[2018-07-05] MEDS ORDERED: GUAIFENESIN 600 MG TAB PO PRN (18:15)
[2018-07-05] MEDS ORDERED: BENZONATATE 100 MG CAP PO PRN (18:15)
[2018-07-05] MEDS ORDERED: DIPHENHYDRAMINE HCL 25 MG CAP PO ONE (18:15)
[2018-07-05] MEDS ORDERED: FUROSEMIDE 20 MG TAB PO PRN (18:15)
[2018-07-05 19:13] LABS: CREATINE KINASE MB 1.6 ng/mL (0-5.0)
[2018-07-05] MEDS: ALBUTEROL/IPRATROPIUM 3 ML NEB NEB SCH ×2 (19:15→23:25)
[2018-07-05] MEDS: HYDROCODONE/APAP 10MG-325MG TAB PO PRN (19:27)
[2018-07-05 20:00] VITALS: BP 121/70
[2018-07-05] MEDS: ATORVASTATIN 40 MG TAB PO SCH (20:11)
[2018-07-05] MEDS: SUCRALFATE 1 GM TAB PO SCH (20:11)
[2018-07-05] MEDS ORDERED: NON-FORMULARY MEDICATION (Atorvastatin Calcium 40 MG) PO SCH (21:00)
[2018-07-05] MEDS: TEMAZEPAM 15 MG CAP PO PRN (21:26)
[2018-07-05] MEDS: IPRATROPIUM BROMIDE 0.02% 2.5 ML NEB NEB SCH (23:00)
[2018-07-05] MEDS: LEVALBUTEROL HCL SOLN NEBU 0.63 MG/3 ML NEB INH SCH (23:00)
[2018-07-06] VITALS: BP 116/71
--- NOTE | 2018-07-06 00:12 | Diagnostic Imaging Report ---
EXAM: CHEST XRAY LINE PLACEMENT, AP 1 view INDICATION: PICC placement COMPARISON: AP view of the chest July 05, 2018 FINDINGS: LINES/TUBES: Interval placement of right approach PICC with tip terminating at the expected location of the distal superior vena cava. LUNGS: No consolidations or edema. PLEURA: No effusions or pneumothorax. HEART AND MEDIASTINUM: Normal size and contour. BONES AND SOFT TISSUES: No acute findings. IMPRESSION: Interval placement of right approach PICC with tip terminating at the expected location of the distal superior vena cava. Signed by: Dr. Jessica Morgan M.D. on 07/06/2018 12:09 AM
[2018-07-06] MEDS: DOXYCYCLINE 100MG/NS 100ML 100 ML IV SCH ×3 (00:23→20:16)
[2018-07-06 01:03] LABS: CREATINE KINASE 59 IU/L (29-168)
[2018-07-06] MEDS: PROMETHAZINE 12.5MG/ NACL 0.9% 12.5 MG/50 ML BAG IV PRN (01:53)
[2018-07-06] MEDS: LEVALBUTEROL HCL SOLN NEBU 0.63 MG/3 ML NEB INH SCH ×6 (02:30→23:00)
[2018-07-06] MEDS: IPRATROPIUM BROMIDE 0.02% 2.5 ML NEB NEB SCH ×6 (02:30→23:00)
[2018-07-06 04:00] VITALS: BP 124/75
[2018-07-06] MEDS: HYDROCODONE/APAP 10MG-325MG TAB PO PRN ×3 (04:46→17:14)
[2018-07-06 04:56] LABS: BASOPHILS % 0.1 % (0.0-1.0); HEMATOCRIT 30.8 % (34.2-44.1); HEMOGLOBIN 9.6 g/dL (12.0-16.0); LYMPHOCYTES # (AUTO) 0.8 (1.0-3.2); LYMPHOCYTES % 9.9 % (18.0-39.1); MEAN CORPUSCULAR HEMOGLOBIN 27.4 pg (28-32); MEAN CORPUSCULAR HGB CONC 31.2 g/dL (31-35); MEAN CORPUSCULAR VOLUME 87.7 fL (81-99); MONOCYTES # (AUTO) 0.3 (0.2-0.8); MONOCYTES % 4.4 % (4.4-11.3); NEUTROPHILS # (AUTO) 6.6 (2.1-6.9); NEUTROPHILS % 84.8 % (38.7-80.0); PLATELET COUNT 352 x10e3/uL (140-360); RED BLOOD COUNT 3.51 x10e6/uL (3.6-5.1); RED CELL DISTRIBUTION WIDTH 14.1 % (11.7-14.4)
[2018-07-06 05:30] LABS: CREATINE KINASE 49 IU/L (29-168)
[2018-07-06 05:44] LABS: ANION GAP 12.1 mmol/L (8-16); BLOOD UREA NITROGEN 16 mg/dL (7-26); BUN/CREATININE RATIO 23 (6-25); CALCIUM 9.4 mg/dL (8.4-10.2); CARBON DIOXIDE 28 mmol/L (22-29); CHLORIDE 109 mmol/L (98-107); CREATININE, SERUM 0.69 mg/dL (0.57-1.11); EST GLOMERULAR FILTRATION RATE > 60 ML/MIN (60-); GLUCOSE 146 mg/dL (74-118); MAGNESIUM 1.8 MG/DL (1.3-2.1); POTASSIUM 4.1 mmol/L (3.5-5.1); SODIUM 145 mmol/L (136-145)
[2018-07-06] MEDS: DOCUSATE SODIUM 100 MG CAP PO SCH ×2 (08:15→17:01)
[2018-07-06] MEDS: METOPROLOL TARTRATE 50 MG TAB PO SCH ×2 (08:15→17:01)
[2018-07-06] MEDS: PANTOPRAZOLE SOD 40 MG TABEC PO SCH (08:15)
[2018-07-06] MEDS: SUCRALFATE 1 GM TAB PO SCH ×4 (08:15→20:16)
[2018-07-06] MEDS: AMLODIPINE BESYLATE 10 MG TAB PO SCH (08:16)
[2018-07-06] MEDS: GABAPENTIN 100 MG CAP PO SCH ×2 (08:16→17:01)
[2018-07-06] MEDS: METHYLPREDNISOLONE SOD SUCC 40 MG/ML VIAL IV SCH ×3 (08:52→21:02)
[2018-07-06] MEDS ORDERED: ETOMIDATE 2 MG/ML 10 ML INJ IV ONE (15:33)
[2018-07-06] MEDS ORDERED: SUCCINYLCHOLINE CHLORIDE 20 MG/ML 10ML VIAL ONE (15:33)
[2018-07-06 16:39] VITALS: BP 119/71
[2018-07-06 20:11] VITALS: BP 128/64
[2018-07-06] MEDS: ATORVASTATIN 40 MG TAB PO SCH (20:16)
[2018-07-06] MEDS: TEMAZEPAM 15 MG CAP PO PRN (20:26)
[2018-07-06] MEDS: LORAZEPAM 1 MG TAB PO PRN (22:16)
[2018-07-07] VITALS (7 sets, daily range): BP systolic 119–153; BP diastolic 66–81
[2018-07-07] MEDS: IPRATROPIUM BROMIDE 0.02% 2.5 ML NEB NEB SCH ×6 (03:00→22:41)
[2018-07-07] MEDS: LEVALBUTEROL HCL SOLN NEBU 0.63 MG/3 ML NEB INH SCH ×2 (03:10→06:26)
[2018-07-07] MEDS: METHYLPREDNISOLONE SOD SUCC 40 MG/ML VIAL IV SCH ×2 (05:03→17:26)
[2018-07-07 05:16] LABS: BASOPHILS % 0.1 % (0.0-1.0); HEMATOCRIT 30.6 % (34.2-44.1); HEMOGLOBIN 9.4 g/dL (12.0-16.0); LYMPHOCYTES # (AUTO) 1.1 (1.0-3.2); LYMPHOCYTES % 8.1 % (18.0-39.1); MEAN CORPUSCULAR HEMOGLOBIN 27.7 pg (28-32); MEAN CORPUSCULAR HGB CONC 30.7 g/dL (31-35); MEAN CORPUSCULAR VOLUME 90.3 fL (81-99); MONOCYTES # (AUTO) 0.4 (0.2-0.8); MONOCYTES % 2.5 % (4.4-11.3); NEUTROPHILS # (AUTO) 12.4 (2.1-6.9); NEUTROPHILS % 88.2 % (38.7-80.0); PLATELET COUNT 383 x10e3/uL (140-360); RED BLOOD COUNT 3.39 x10e6/uL (3.6-5.1); RED CELL DISTRIBUTION WIDTH 14.3 % (11.7-14.4)
[2018-07-07 06:01] LABS: ANION GAP 13.2 mmol/L (8-16); BLOOD UREA NITROGEN 24 mg/dL (7-26); BUN/CREATININE RATIO 35 (6-25); CALCIUM 9.6 mg/dL (8.4-10.2); CARBON DIOXIDE 27 mmol/L (22-29); CHLORIDE 109 mmol/L (98-107); CREATININE, SERUM 0.69 mg/dL (0.57-1.11); EST GLOMERULAR FILTRATION RATE > 60 ML/MIN (60-); GLUCOSE 138 mg/dL (74-118); MAGNESIUM 1.9 MG/DL (1.3-2.1); POTASSIUM 4.2 mmol/L (3.5-5.1); SODIUM 145 mmol/L (136-145)
[2018-07-07] MEDS: HYDROCODONE/APAP 10MG-325MG TAB PO PRN ×2 (06:09→15:41)
[2018-07-07] MEDS: METOPROLOL TARTRATE 50 MG TAB PO SCH ×2 (08:21→17:26)
[2018-07-07] MEDS: PANTOPRAZOLE SOD 40 MG TABEC PO SCH (08:21)
[2018-07-07] MEDS: DOCUSATE SODIUM 100 MG CAP PO SCH ×2 (08:21→17:26)
[2018-07-07] MEDS: DOXYCYCLINE 100MG/NS 100ML 100 ML IV SCH ×2 (08:21→20:00)
[2018-07-07] MEDS: AMLODIPINE BESYLATE 10 MG TAB PO SCH (08:21)
[2018-07-07] MEDS: SUCRALFATE 1 GM TAB PO SCH ×4 (08:21→21:00)
[2018-07-07] MEDS: GABAPENTIN 100 MG CAP PO SCH ×2 (08:21→17:26)
[2018-07-07] MEDS: LORAZEPAM 1 MG TAB PO PRN (09:19)
[2018-07-07] MEDS: PROMETHAZINE 12.5MG/ NACL 0.9% 12.5 MG/50 ML BAG IV PRN (20:35)
[2018-07-07] MEDS: ATORVASTATIN 40 MG TAB PO SCH (21:00)
[2018-07-07] MEDS ORDERED: ALTEPLASE RECOMBINANT 2 MG/2 ML VIAL IV ONE (22:00)
[2018-07-07] MEDS ORDERED: WATER STERILE 10 ML VIAL INJ PRN (22:00)
[2018-07-08] VITALS (7 sets, daily range): BP systolic 142–173; BP diastolic 71–97
[2018-07-08] MEDS: LORAZEPAM 1 MG TAB PO PRN ×2 (01:24→17:17)
[2018-07-08] MEDS: HYDROCODONE/APAP 10MG-325MG TAB PO PRN ×4 (01:24→23:40)
[2018-07-08] MEDS ORDERED: ENOXAPARIN INJ 80 MG/0.8 ML SYR SC SCH (02:00)
[2018-07-08] MEDS: IPRATROPIUM BROMIDE 0.02% 2.5 ML NEB NEB SCH ×6 (03:00→22:30)
--- NOTE | 2018-07-08 03:37 | Diagnostic Imaging Report ---
Exam: AP chest Indication: PICC placement Comparison: AP view of the chest July 05, 2018 Impression: 1. Interval placement of left approach PICC with tip terminating at the expected location of the atriocaval junction. Interval removal of right approach PICC. 2. No interval change in appearance of the heart and lungs. Signed by: Dr. Jessica Morgan M.D. on 07/08/2018 3:34 AM
[2018-07-08 04:27] LABS: BASOPHILS % 0.1 % (0.0-1.0); EOSINOPHILS % 0.1 % (0.0-6.0); HEMATOCRIT 30.8 % (34.2-44.1); HEMOGLOBIN 9.6 g/dL (12.0-16.0); LYMPHOCYTES # (AUTO) 1.5 (1.0-3.2); LYMPHOCYTES % 9.8 % (18.0-39.1); MEAN CORPUSCULAR HEMOGLOBIN 27.6 pg (28-32); MEAN CORPUSCULAR HGB CONC 31.2 g/dL (31-35); MEAN CORPUSCULAR VOLUME 88.5 fL (81-99); MONOCYTES # (AUTO) 0.9 (0.2-0.8); MONOCYTES % 5.7 % (4.4-11.3); NEUTROPHILS # (AUTO) 12.6 (2.1-6.9); NEUTROPHILS % 82.2 % (38.7-80.0); PLATELET COUNT 386 x10e3/uL (140-360); RED BLOOD COUNT 3.48 x10e6/uL (3.6-5.1); RED CELL DISTRIBUTION WIDTH 14.1 % (11.7-14.4)
[2018-07-08 04:48] LABS: ANION GAP 14.7 mmol/L (8-16); BLOOD UREA NITROGEN 25 mg/dL (7-26); BUN/CREATININE RATIO 38 (6-25); CALCIUM 9.7 mg/dL (8.4-10.2); CARBON DIOXIDE 28 mmol/L (22-29); CHLORIDE 106 mmol/L (98-107); CREATININE, SERUM 0.66 mg/dL (0.57-1.11); EST GLOMERULAR FILTRATION RATE > 60 ML/MIN (60-); GLUCOSE 135 mg/dL (74-118); POTASSIUM 3.7 mmol/L (3.5-5.1); SODIUM 145 mmol/L (136-145)
--- NOTE | 2018-07-08 05:48 | Diagnostic Imaging Report ---
Exam: AP chest Indication: PICC placement Comparison: AP view of the chest July 05, 2018 Impression: 1. Interval placement of left approach PICC with tip terminating at the expected location of the atriocaval junction. Interval removal of right approach PICC. 2. No interval change in appearance of the heart and lungs. Originally Signed by: Dr. Jessica Morgan M.D. on 07/08/2018 5:45 AM
[2018-07-08] MEDS: METHYLPREDNISOLONE SOD SUCC 40 MG/ML VIAL IV SCH (06:15)
[2018-07-08] MEDS: SUCRALFATE 1 GM TAB PO SCH ×4 (08:25→20:25)
[2018-07-08] MEDS: PANTOPRAZOLE SOD 40 MG TABEC PO SCH (08:25)
[2018-07-08] MEDS: PREDNISONE 20 MG TAB PO SCH (08:25)
[2018-07-08] MEDS: METOPROLOL TARTRATE 50 MG TAB PO SCH ×2 (08:25→16:17)
[2018-07-08] MEDS: DOCUSATE SODIUM 100 MG CAP PO SCH ×2 (08:25→16:17)
[2018-07-08] MEDS: GABAPENTIN 100 MG CAP PO SCH ×2 (08:25→16:17)
[2018-07-08] MEDS: AMLODIPINE BESYLATE 10 MG TAB PO SCH (08:25)
[2018-07-08] MEDS: DOXYCYCLINE 100MG/NS 100ML 100 ML IV SCH ×2 (08:25→20:25)
--- NOTE | 2018-07-08 10:31 | Consultation ---
DATE OF CONSULTATION: July 08, 2018 ATTENDING DOCTOR: Dr. Anna Thank you Dr. Anna for this consultation. HISTORY: She is very pleasant 57-year-old female with the past medical history include severe COPD, required home oxygen, cannot talk full sentence because of persistent shortness of breath, admitted in the hospital with worsening shortness of breath even at rest. Patient also had cough and wheezing. No fevers or chills reported. At the time of admission, patient had right upper extremity swelling and she also received PICC line in the same extremity, and she had Doppler for swelling and it shows deep vein thrombosis. Official report is still pending. Patient had prior history of DVT diagnosed almost 2 years back, no record found. Patient does not have any more memory about the blood clot. She received anticoagulation only during hospital stay that was only for 3 days. She was not discharged on any anticoagulation. Denies any other symptom. She received Lovenox treatment. PAST MEDICAL HISTORY: Hypertension, emphysema, DVT, COPD, GERD, arthritis, anxiety. PAST SURGICAL HISTORY: Breast biopsy, lumpectomy, appendectomy. SOCIAL HISTORY: No current smoking. She had history of significant smoking in past. No alcohol or drugs. FAMILY HISTORY: Positive for hypertension and COPD. REVIEW OF SYSTEMS: Twelve-point review as per HPI. PHYSICAL EXAMINATION: GENERAL: Alert, awake, communicative. HEENT: Normocephalic, atraumatic. Sclerae pale. Conjunctivae clear. NECK: Supple. CHEST: Bilateral poor air entry, wheezing. CARDIOVASCULAR: Regular rate and rhythm. ABDOMEN: Soft, nontender. BACK: Normal excursion. SKIN: Warm and dry. EXTREMITIES: Right upper extremity swelling. MICROFICHE CAMERA OPERATOR: Intact. LABS AND IMAGING: Reviewed. ASSESSMENT AND PLAN: Patient with history of deep vein thrombosis in past, no complete record available. Patient was not treated with anticoagulation, currently in hospital with worsening shortness of breath. Workup is consistent with COPD exacerbation. She also had right upper extremity swelling. She had Doppler with preliminary report showed deep vein thrombosis, no final report available. Patient already started on Lovenox. At current, recommendation to continue anticoagulation at least for 3 months. Do not recommend to remove peripherally inserted central catheter line. Patient will benefit with Xarelto 15 mg twice a day treatment. Likely provoked even because of peripherally inserted central catheter line. At this point, will continue current care. I will try to get her previous record for previous deep vein thrombosis. At this point, will continue remaining care. Will follow patient closely. Thank you. Job#: [id number]
[2018-07-08] MEDS: RIVAROXABAN 15 MG TABLET PO SCH ×2 (11:08→16:17)
[2018-07-08] MEDS: ATORVASTATIN 40 MG TAB PO SCH (20:25)
[2018-07-09] VITALS (71 sets, daily range): BP systolic 74–180; BP diastolic 58–99
[2018-07-09] MEDS: IPRATROPIUM BROMIDE 0.02% 2.5 ML NEB NEB SCH ×6 (02:30→23:00)
[2018-07-09 03:38] LABS: BASOPHILS % 0.2 % (0.0-1.0); HEMATOCRIT 28.8 % (34.2-44.1); LYMPHOCYTES # (AUTO) 2.6 (1.0-3.2); LYMPHOCYTES % 19.7 % (18.0-39.1); MEAN CORPUSCULAR HEMOGLOBIN 27.5 pg (28-32); MEAN CORPUSCULAR HGB CONC 31.3 g/dL (31-35); MEAN CORPUSCULAR VOLUME 88.1 fL (81-99); MONOCYTES # (AUTO) 1.4 (0.2-0.8); MONOCYTES % 10.4 % (4.4-11.3); NEUTROPHILS % 67.8 % (38.7-80.0); PLATELET COUNT 339 x10e3/uL (140-360); RED BLOOD COUNT 3.27 x10e6/uL (3.6-5.1); RED CELL DISTRIBUTION WIDTH 13.9 % (11.7-14.4)
[2018-07-09 03:57] LABS: ANION GAP 11.5 mmol/L (8-16); BLOOD UREA NITROGEN 21 mg/dL (7-26); BUN/CREATININE RATIO 36 (6-25); CALCIUM 9.2 mg/dL (8.4-10.2); CARBON DIOXIDE 32 mmol/L (22-29); CHLORIDE 106 mmol/L (98-107); CREATININE, SERUM 0.59 mg/dL (0.57-1.11); EST GLOMERULAR FILTRATION RATE > 60 ML/MIN (60-); GLUCOSE 89 mg/dL (74-118); MAGNESIUM 2.1 MG/DL (1.3-2.1); POTASSIUM 3.5 mmol/L (3.5-5.1); SODIUM 146 mmol/L (136-145)
[2018-07-09] MEDS: PROMETHAZINE 12.5MG/ NACL 0.9% 12.5 MG/50 ML BAG IV PRN (04:39)
[2018-07-09] MEDS ORDERED: PREDNISONE10 MG PO (06:34)
[2018-07-09] MEDS ORDERED: MUCINEX600 MG PO (06:34)
[2018-07-09] MEDS ORDERED: DOXYCYCLINE HY100 MG PO (06:34)
[2018-07-09] MEDS ORDERED: Albuterol/Ipratropium Nebulize NEB (06:34)
[2018-07-09] MEDS ORDERED: XARELTO15 MG PO (06:35)
[2018-07-09] MEDS ORDERED: DEXTROSE 5%/0.45% SOD CHL 1,000 ML IV ONE (07:00)
[2018-07-09] MEDS ORDERED: HYDRALAZINE HCL 20 MG/ML VIAL IV ONE (08:30)
[2018-07-09] MEDS ORDERED: XARELTO10 MG PO (08:35)
--- NOTE | 2018-07-09 08:59 | Progress Note ---
DATE: July 09, 2018 The patient was seen and examined today. The patient still has baseline shortness of breath. She is going to be on oxygen. PHYSICAL EXAMINATION GENERAL: Alert, awake and communicative. HEENT: Normocephalic and atraumatic. Sclerae pink. Conjunctivae clear. NECK: Supple. CHEST: Decreased sounds at the bases. CARDIOVASCULAR: Regular rate and rhythm. ABDOMEN: Soft. EXTREMITIES: No edema. LABS AND IMAGING: Reviewed. ASSESSMENT AND PLAN: The patient with a history of former smoking, chronic obstructive pulmonary disease, new-onset of deep venous thrombosis. The patient currently on Xarelto. Tolerating very well. RECOMMENDATIONS: Continue current care. Anemia. The patient has normocytic anemia. The patient is scheduled for discharge. Recommendation is outpatient followup for further workup and care. Will continue remaining care. Will follow the patient closely. Job#: [id number]
[2018-07-09] MEDS: RIVAROXABAN 15 MG TABLET PO SCH ×2 (09:05→17:16)
[2018-07-09] MEDS: AMLODIPINE BESYLATE 10 MG TAB PO SCH (09:05)
[2018-07-09] MEDS: DOCUSATE SODIUM 100 MG CAP PO SCH ×2 (09:05→16:28)
[2018-07-09] MEDS: PREDNISONE 20 MG TAB PO SCH (09:05)
[2018-07-09] MEDS: SUCRALFATE 1 GM TAB PO SCH ×4 (09:05→21:50)
[2018-07-09] MEDS: DOXYCYCLINE 100MG/NS 100ML 100 ML IV SCH (09:05)
[2018-07-09] MEDS: GABAPENTIN 100 MG CAP PO SCH ×2 (09:05→17:16)
[2018-07-09] MEDS: METOPROLOL TARTRATE 50 MG TAB PO SCH ×2 (09:05→17:00)
[2018-07-09] MEDS: PANTOPRAZOLE SOD 40 MG TABEC PO SCH (09:05)
[2018-07-09] MEDS ORDERED: DEXTROSE 5%/0.45% SOD CHL 500 ML IV ONE (09:15)
[2018-07-09] MEDS ORDERED: LORAZEPAM 0.5 MG TAB PO PRN (09:15)
[2018-07-09 09:27] LABS: ABG PH 7.02 (7.31-7.41)
[2018-07-09 09:28] LABS: ABG HCO3 27 mmol/L (23-28); ABG PCO2 104 mmHg (41-51); ABG PO2 360 mmHg (80-105)
[2018-07-09 09:31] LABS: BASOPHILS # (AUTO) 0.1 (0.0-0.1); BASOPHILS % 0.4 % (0.0-1.0); EOSINOPHILS # (AUTO) 0.1 (0.0-0.4); EOSINOPHILS % 0.3 % (0.0-6.0); HEMATOCRIT 34.1 % (34.2-44.1); HEMOGLOBIN 10.6 g/dL (12.0-16.0); LYMPHOCYTES # (AUTO) 9.5 (1.0-3.2); LYMPHOCYTES % 32.8 % (18.0-39.1); MEAN CORPUSCULAR HGB CONC 31.1 g/dL (31-35); MEAN CORPUSCULAR VOLUME 90.2 fL (81-99); MONOCYTES # (AUTO) 3.5 (0.2-0.8); NEUTROPHILS # (AUTO) 14.6 (2.1-6.9); NEUTROPHILS % 50.7 % (38.7-80.0); PLATELET COUNT 528 x10e3/uL (140-360); RED BLOOD COUNT 3.78 x10e6/uL (3.6-5.1); RED CELL DISTRIBUTION WIDTH 13.9 % (11.7-14.4)
[2018-07-09] MEDS ORDERED: PROPOFOL IV EMULSION 10MG/ML 100 ML ONE (10:00)
[2018-07-09] MEDS ORDERED: NOREPINEPHRINE 8 MG/D5W 250 ML 250 ML ONE (10:32)
[2018-07-09] MEDS: NOREPINEPHRINE INJ 4MG/4ML 8 MG in DEXTROSE 5% 250ML 250 ML IV SCH (10:35)
[2018-07-09 10:40] LABS: ABG HCO3 34 mmol/L (23-28); ABG PCO2 44 mmHg (41-51); ABG PH 7.49 (7.31-7.41); ABG PO2 497 mmHg (80-105)
[2018-07-09] MEDS ORDERED: SODIUM CHLORIDE 0.9% 1000ML 1,000 ML ONE (10:44)
[2018-07-09 11:10] LABS: BAND NEUTROPHILS % (MANUAL) 1 %; ELLIPTOCYTE, RBC SLIGHT; HYPOCHROMASIA SLIGHT; LYMPHOCYTES % (MANUAL) 28 % (19-48); MONOCYTES % (MANUAL) 11 % (3.4-9.0); NEUTROPHILS % (MANUAL) 59 % (40-74); NUCLEATED RED BLOOD CELLS 1; PLATELET ESTIMATE SLIGHTLY INCREASED; PLATELET MORPHOLOGY COMMENT NORMAL; RBC MORPHOLOGY COMMENT NORMAL
--- NOTE | 2018-07-09 11:24 | Diagnostic Imaging Report ---
PROCEDURE: CT scan of the chest WITH intravenous contrast, using standard protocol. TECHNIQUE: Chest was scanned utilizing a multidetector helical scanner from the lung apex through the level of the diaphragm after administration of IV contrast. Coronal and sagittal reformations were obtained. Pulmonary embolism protocol was performed. COMPARISON: CT PE 03/27/18, CT chest 01/26/18 INDICATIONS: SUDDEN SHORTNESS OF BREATH IV CONTRAST: 44 cc of Isovue-370 RADIATION DOSE: Total DLP: 529.53 mGy*cm Estimated effective dose: (DLP x 0.014 x size factor) mSv FINDINGS: LINES/ TUBES: None. PULMONARY ARTERIES: No dilatation of the main pulmonary artery. No evidence of pulmonary emboli in the main, lobar, or segmental vessels. The subsegmental pulmonary arteries are not well opacified. LUNGS AND AIRWAYS: Centrilobular and paraseptal emphysema with upper lobe predominance. Central airways are patent. A 4 mm right upper lobe solid pulmonary nodule is unchanged since CT on 03/27/18. Movement limits evaluation for lung nodule at the bases. PLEURA: The pleural spaces are clear. HEART AND MEDIASTINUM: There is a subcentimeter right thyroid lobe nodule. No mediastinal, hilar or axillary lymphadenopathy. The heart is normal in size.. There is no pericardial effusion. There are scattered atherosclerotic calcifications in the aorta and coronary arteries. UPPER ABDOMEN: Limited non-contrast views of the upper abdomen show no abnormality within the visualized liver, spleen, pancreas, or kidneys. The adrenal glands are normal. Fat containing right Bochdalek hernia. BONES/SOFT TISSUES: The visualized bony thorax is within normal limits. Diffuse demineralization. IMPRESSION: No evidence of pulmonary embolism to the segmental level. No acute thoracic findings. Severe centrilobular and paraseptal emphysematous changes. A 4 mm solid pulmonary nodule, unchanged since CT on 01/26/18, for which a follow-up chest CT is recommended in one year to assess for stability given smoking history. Dictated by: CAMELIA RANDALL M.D. on 07/09/2018 at 10:19 Electronically approved by: CAMELIA RANDALL M.D. on 07/09/2018 at 10:19
--- NOTE | 2018-07-09 11:24 | Diagnostic Imaging Report ---
PROCEDURE: A single AP view of the chest. COMPARISON: [facility], DX, CHEST XRAY LINE PLACEMENT, 07/08/2018, 3:22. INDICATIONS: SHORTNESS OF BREATH, RAPID RESPONSE FINDINGS: Lines/tubes: Left sided PICC terminating in the expected location of the cavoatrial junction. Lungs: Interval development of mild patchy opacity at the right lung base. The left lung is clear. Pleura: There is no pleural effusion or pneumothorax. Heart and mediastinum: The cardiomediastinal silhouette is unchanged. Bones: No acute bony abnormality. IMPRESSION: Interval development of mild patchy right basilar opacity, which could represent atelectasis or aspiration in the appropriate clinical setting. Left sided PICC in unchanged position. Dictated by: CAMELIA RANDALL M.D. on 07/09/2018 at 10:00 Electronically approved by: CAMELIA RANDALL M.D. on 07/09/2018 at 10:00
--- NOTE | 2018-07-09 11:24 | Diagnostic Imaging Report ---
PROCEDURE: A single AP view of the chest. COMPARISON: [facility], CT PE, 07/09/2018, 9:44. INDICATIONS: STATUS POST INTUBATION FINDINGS: Lines/tubes: Interval intubation, the ET tube terminates in the mid trachea, 4.2 cm above the sushma. Left sided PICC terminates near the expected location of the cavoatrial junction. Lungs/Pleura: The lung bases are excluded from the field of view. No evidence of pneumothorax. The visualized lungs are clear. Emphysematous changes of the lungs. Pleura: There is no pleural effusion or pneumothorax. Heart and mediastinum: The cardiomediastinal silhouette is unchanged. Bones: No acute bony abnormality. IMPRESSION: Interval intubation with ET tube in appropriate position. The lung bases are excluded from the field of view, but no definite pneumothorax. Dictated by: CAMELIA RANDALL M.D. on 07/09/2018 at 10:27 Electronically approved by: CAMELIA RANDALL M.D. on 07/09/2018 at 10:27
[2018-07-09] MEDS ORDERED: SODIUM CHLORIDE 0.9% 1000ML 1,000 ML IV ONE (11:30)
--- NOTE | 2018-07-09 12:44 | Diagnostic Imaging Report ---
EXAM: ABDOMEN-1VIEW (KUB), DATE: 07/09/2018 11:50 AM INDICATION: OGT placement COMPARISON: CT 05/28/2018, Chest radiograph 07/08/2018 FINDINGS: Motion and underpenetration limits evaluation. LINES/TUBES: Enteric tube tip projects over the gastric antrum. BOWEL PATTERN: No evidence for obstruction within the visualized abdomen. SOFT TISSUES: No abnormal calcifications. No mass effect. LUNG BASES: Calcified granuloma in the left lung. BONES: No acute findings. IMPRESSION: Enteric tube tip projects over the gastric antrum. Signed by: DR. Roel Howard MD on 07/09/2018 12:41 PM
[2018-07-09] MEDS ORDERED: SODIUM CHLORIDE 0.45% 1,000 ML ONE (13:09)
[2018-07-09] MEDS ORDERED: LEVALBUTEROL HCL SOLN NEBU 1.25 MG/3 ML NEB ONE ×2 (13:13→15:25)
[2018-07-09] MEDS ORDERED: MEROPENEM 1GRAM 1 GM in SODIUM CHLORIDE 0.9% 100 ML 100 ML IV SCH (14:00)
[2018-07-09] MEDS: AZITHROMYCIN 500MG/NS 250 ML 250 ML IV SCH (14:19)
[2018-07-09] MEDS: MEROPENEM 1 GM VIAL IV SCH ×2 (14:19→21:50)
[2018-07-09] MEDS: SODIUM CHLORIDE 0.45% 1,000 ML IV SCH (14:20)
--- NOTE | 2018-07-09 14:30 | Consultation ---
DATE OF CONSULTATION: July 09, 2018 PULMONARY/CRITICAL CARE CONSULTATION REFERRING PHYSICIAN: Dr. Anna CHIEF COMPLAINT: Hypercapnic respiratory failure and leukocytosis. HISTORY OF PRESENT ILLNESS: The patient is a 57-year-old woman with a history of COPD. She was in the hospital receiving corticosteroids and bronchodilators along with doxycycline. Her hospital course was complicated by an upper extremity DVT. She was started on Xarelto and was doing better. Apparently she was scheduled for discharge this morning when she was found to have decreased saturations and low oxygen saturation. She had an ABG that showed hypercapnic respiratory failure. She initially was placed on BiPAP and was subsequently intubated. She also had a CT scan that showed no PE and no active disease. Her blood counts returned with increase in her white blood cell count of 28. PAST SURGICAL HISTORY 1. Lumpectomy. 2. Appendectomy. PAST MEDICAL HISTORY 1. Hypertension. 2. DVT. 3. COPD. SOCIAL HISTORY: The patient was a prior smoker. She has no history of alcohol. FAMILY HISTORY: Positive for COPD and hypertension. ALLERGIES: MORPHINE, LEVAQUIN AND ZOFRAN. REVIEW OF SYSTEMS: There was no headache, the patient had no fever. She had no neck pain. She did not have chest pain. There was no cough or wheezing. She did not have any nausea or vomiting. She did have some abdominal distention. There was no leg edema. PHYSICAL EXAMINATION VITAL SIGNS: The patient is afebrile. Blood pressure is 97/77 on a norepinephrine drip at 5 mcg. Her O2 saturation is 100% on a pressure-regulated volume control. She has a PICC line in place. HEENT: Shows no facial swelling or erythema. Nasal mucosa is normal. There is no oral endotracheal tube. LYMPHATIC: Shows no submandibular, cervical or supraclavicular adenopathy. CARDIAC: Reveals a regular rate and rhythm with normal S1 and S2. LUNGS: Auscultation of the lungs reveals clear breath sounds bilaterally. There is no wheezing. ABDOMEN: Soft, nontender. There is no rebound or guarding. There was some distention. EXTREMITIES: There is no leg edema or calf tenderness. There is no cyanosis or clubbing. SKIN: Shows no rashes. NEUROLOGIC: Shows the patient to be sedated. IMPRESSION 1. Acute hypercapnic respiratory failure. 2. Chronic obstructive pulmonary disease. 3. Deep vein thrombosis. 4. Sepsis of unclear etiology. PLAN 1. Patient will be pancultured and started on IV antibiotics. 2. Will repeat the CBC. 3. Continue on IV Solu-Medrol along with bronchodilators. 4. Wean dopamine as tolerated. 5. Intravenous fluids. 6. Wean ventilator as tolerated. Job#: [id number] MARÍA ELENA
[2018-07-09] MEDS: PROPOFOL IV EMULSION 10MG/ML 100 ML IV SCH ×4 (14:42→23:30)
[2018-07-09] MEDS ORDERED: SODIUM CHLORIDE 0.9% 50ML 50 ML ONE (15:08)
[2018-07-09] MEDS ORDERED: IOPAMIDOL 370 MG/ML 200 ML INFUS..BTL INJ ONE (15:10)
[2018-07-09] MEDS: VANCOMYCIN 1GM/NS 250 ML 250 ML IV SCH (16:28)
[2018-07-09 16:32] LABS: BASOPHILS % 0.2 % (0.0-1.0); EOSINOPHILS % 0.1 % (0.0-6.0); HEMATOCRIT 31.4 % (34.2-44.1); HEMOGLOBIN 9.9 g/dL (12.0-16.0); LYMPHOCYTES # (AUTO) 1.9 (1.0-3.2); LYMPHOCYTES % 11.6 % (18.0-39.1); MEAN CORPUSCULAR HEMOGLOBIN 27.7 pg (28-32); MEAN CORPUSCULAR HGB CONC 31.5 g/dL (31-35); MONOCYTES # (AUTO) 1.5 (0.2-0.8); MONOCYTES % 8.9 % (4.4-11.3); NEUTROPHILS # (AUTO) 12.9 (2.1-6.9); NEUTROPHILS % 77.3 % (38.7-80.0); PLATELET COUNT 395 x10e3/uL (140-360); RED BLOOD COUNT 3.57 x10e6/uL (3.6-5.1); RED CELL DISTRIBUTION WIDTH 14.1 % (11.7-14.4)
[2018-07-09 17:04] LABS: CLARITY,URINE SL CLOUDY (CLEAR); COLOR,URINE YELLOW (YELLOW); LEUKOCYTE ESTERASE ,URINE NEGATIVE (NEGATIVE); NITRITE,URINE NEGATIVE (NEGATIVE); PROTEIN,URINE DIPSTICK NEGATIVE (NEGATIVE)
[2018-07-09 17:05] LABS: BILIRUBIN,URINE NEGATIVE (NEGATIVE); KETONES,URINE TRACE (NEGATIVE); URINE UROBILINOGEN 0.2 mg/dL (0.2 - 1)
[2018-07-09 17:14] LABS: BACTERIA,URINE FEW /HPF; URIC ACID CRYSTALS,URINE MODERATE (FEW)
[2018-07-09 18:48] LABS: AMYLASE 42 U/L (25-125); LIPASE 14 U/L (8-78)
--- NOTE | 2018-07-09 19:06 | Consultation ---
DATE OF CONSULTATION: REASON FOR CONSULTATION: Sepsis. HISTORY OF PRESENT ILLNESS: This is a 57-year-old white female, history of COPD, history of congestive heart failure. She is on home oxygen. According to her boyfriend, she has been in and out of the hospital for the last 3 years almost every month for shortness of breath. She was here about a month ago with shortness of breath. She was discharged home and she was doing fairly well in usual terms, came back again with shortness of breath and cough. Patient was admitted, on antibiotic. She did improve initially. She was given discharged today. However, she became short of breath suddenly, taken to the CAT scan and in the CAT scan, she became very pale, had to be intubated. A CT of the chest did not reveal PE. Infectious disease was consulted. There is concern that she had a PICC line 4 days ago and there is a DVT. The patient, who is currently intubated and sedated, history was taken mainly from the chart. PAST MEDICAL HISTORY: Hypertension, COPD, DVT. PAST SURGICAL HISTORY: Lumpectomy, appendectomy. ALLERGIES: LEVAQUIN, ZOFRAN. SOCIAL HISTORY: Currently, not smoking, no drug abuse, alcohol abuse. FAMILY HISTORY: Noncontributory. REVIEW OF SYSTEMS: At present time, could not be obtained. LABORATORY DATA: Reviewed. Her white count is 16.6, earlier was 28.8, upon arrival, on July 07 was 14.2, hemoglobin 9.9, hematocrit 31. Sodium 146, potassium 3.5, creatinine 0.59. Blood cultures, urine cultures still pending. She had a KUB of the abdomen showed enteric tubing is in. Chest x-ray was done showed intubation, lung base are excluded, but no definite pneumothorax. Chest CT was done earlier showed no pulmonary embolism, no acute finding. Severe emphysematous changes. PHYSICAL EXAMINATION GENERAL: She is intubated, sedated. VITALS: Stable. Temperature 97.6, no fever since admission. HEENT: Normocephalic, intubated. CHEST: Few crackles at the bases. COR: S1, S2. No murmur. ABDOMEN: Soft, bowel sounds present. No tenderness. EXTREMITIES: No edema. IMPRESSIONS 1. Acute on a patient, who is a stable, otherwise. She is currently on vancomycin and meropenem. Blood cultures are pending. Discussed with the family. Concern about infection. However, the source is unclear at the present time. Will obtain ultrasound of the abdomen. Continue the current choice of antibiotic. Will order amylase and lipase and will follow. 2. Respiratory failure. 3. History of chronic obstructive pulmonary disease. 4. History of congestive heart failure. Job#: [id number] CQ
[2018-07-09] MEDS: LEVALBUTEROL HCL SOLN NEBU 1.25 MG/3 ML NEB INH SCH ×2 (19:15→23:00)
[2018-07-09] MEDS: METHYLPREDNISOLONE SOD SUCC 40 MG/ML VIAL IV SCH (21:50)
[2018-07-10] VITALS (72 sets, daily range): BP systolic 89–160; BP diastolic 58–98
[2018-07-10] MEDS: PROPOFOL IV EMULSION 10MG/ML 100 ML IV SCH ×2 (02:14→05:13)
[2018-07-10] MEDS: SODIUM CHLORIDE 0.45% 1,000 ML IV SCH (02:17)
[2018-07-10] MEDS: VANCOMYCIN 1GM/NS 250 ML 250 ML IV SCH ×2 (03:00→14:55)
[2018-07-10] MEDS: IPRATROPIUM BROMIDE 0.02% 2.5 ML NEB NEB SCH ×6 (03:15→23:05)
[2018-07-10] MEDS: LEVALBUTEROL HCL SOLN NEBU 1.25 MG/3 ML NEB INH SCH ×6 (03:15→23:05)
[2018-07-10 04:56] LABS: BASOPHILS % 0.2 % (0.0-1.0); HEMATOCRIT 28.6 % (34.2-44.1); HEMOGLOBIN 9.1 g/dL (12.0-16.0); LYMPHOCYTES # (AUTO) 1.3 (1.0-3.2); LYMPHOCYTES % 10.3 % (18.0-39.1); MEAN CORPUSCULAR HEMOGLOBIN 27.8 pg (28-32); MEAN CORPUSCULAR HGB CONC 31.8 g/dL (31-35); MEAN CORPUSCULAR VOLUME 87.5 fL (81-99); MONOCYTES # (AUTO) 0.6 (0.2-0.8); MONOCYTES % 5.1 % (4.4-11.3); NEUTROPHILS # (AUTO) 10.1 (2.1-6.9); NEUTROPHILS % 83.3 % (38.7-80.0); PLATELET COUNT 331 x10e3/uL (140-360); RED BLOOD COUNT 3.27 x10e6/uL (3.6-5.1); RED CELL DISTRIBUTION WIDTH 14.2 % (11.7-14.4)
[2018-07-10 05:20] LABS: ALANINE AMINOTRANSFERASE 23 IU/L (0-55); ALBUMIN 3.2 g/dL (3.5-5.0); ALBUMIN/GLOBULIN RATIO 1.5 (0.8-2.0); ALKALINE PHOSPHATASE 42 IU/L (40-150); BLOOD UREA NITROGEN 15 mg/dL (7-26); BUN/CREATININE RATIO 24 (6-25); CALCIUM 8.6 mg/dL (8.4-10.2); CARBON DIOXIDE 26 mmol/L (22-29); CHLORIDE 106 mmol/L (98-107); CREATININE, SERUM 0.62 mg/dL (0.57-1.11); EST GLOMERULAR FILTRATION RATE > 60 ML/MIN (60-); GLUCOSE 147 mg/dL (74-118); SODIUM 144 mmol/L (136-145)
--- NOTE | 2018-07-10 05:22 | Diagnostic Imaging Report ---
EXAM: CHEST SINGLE (PORTABLE), AP 1 view INDICATION: Respiratory failure COMPARISON: AP view of the chest July 09, 2018 FINDINGS: LINES/TUBES: Endotracheal tube tip not well-visualized on this exam due to overlying tubing. Stable position left approach PICC. Nasal/orogastric tube courses below the diaphragm and out of field of view. LUNGS: No consolidations or edema. PLEURA: No effusions or pneumothorax. HEART AND MEDIASTINUM: Normal size and contour. BONES AND SOFT TISSUES: No acute findings. IMPRESSION: No interval change in appearance of the chest. Signed by: Dr. Jessica Morgan M.D. on 07/10/2018 5:19 AM
[2018-07-10] MEDS: MEROPENEM 1 GM VIAL IV SCH ×3 (05:45→21:03)
--- NOTE | 2018-07-10 07:37 | Progress Note ---
DATE: July 10, 2018 The patient seen and examined today. Patient had worsening shortness of breath yesterday. She required intubation. Initial impression, possibility of PE. CT angio report is normal. Likely, she has a COPD exacerbation. She is currently in intensive care unit. EXAMINATION GENERAL: Intubated, sedated. HEENT: Normocephalic, atraumatic. Sclerae pink. Conjunctivae clear. NECK: Supple. CHEST: Decreased sounds at bases, occasional rhonchi. ABDOMEN: Soft. EXTREMITIES: No edema. LABS AND IMAGING: Reviewed. ASSESSMENT AND PLAN: Patient has history of chronic obstructive pulmonary disease, recent onset of deep vein thrombosis, currently on intensive care unit with respiratory failure, possible sepsis. She was on Xarelto. Continue recommendations. Discontinue Xarelto. Start patient on heparin drip. Monitor patient closely. Anemia. Patient's current hemoglobin is low, but stable. No active bleeding. RECOMMENDATIONS: Continue current care. Will follow patient. Job#: [id number]
[2018-07-10] MEDS ORDERED: HEPARIN 25,000U/0.45% NS 250ML 250 ML ONE (08:08)
[2018-07-10] MEDS: HEPARIN 25,000U/0.45% NS 250ML 1,200 UNIT in SODIUM CHLORIDE 0.9% 250ML 0 ML IV SCH (08:18)
[2018-07-10] MEDS: METOPROLOL TARTRATE 50 MG TAB PO SCH ×2 (08:29→16:18)
[2018-07-10] MEDS: GABAPENTIN 100 MG CAP PO SCH ×2 (08:29→16:18)
[2018-07-10] MEDS: PANTOPRAZOLE 40 MG 10ML VIAL IV SCH (08:29)
[2018-07-10] MEDS: SUCRALFATE 1 GM TAB PO SCH ×4 (08:29→20:58)
[2018-07-10] MEDS: METHYLPREDNISOLONE SOD SUCC 40 MG/ML VIAL IV SCH ×2 (08:29→20:58)
[2018-07-10] MEDS: NOREPINEPHRINE INJ 4MG/4ML 8 MG in DEXTROSE 5% 250ML 250 ML IV SCH (08:30)
[2018-07-10] MEDS ORDERED: POTASSIUM CHLORIDE 20MEQ/100ML 100 ML IV ONE (08:45)
[2018-07-10] MEDS ORDERED: FUROSEMIDE INJ 10 MG/ML 2 ML VIAL IV NR (08:45)
[2018-07-10] MEDS: DOCUSATE SODIUM 100 MG CAP PO SCH ×2 (09:00→16:18)
[2018-07-10] MEDS ORDERED: POTASSIUM CHLORIDE 20MEQ/100ML 200 ML IV ONE (10:00)
[2018-07-10] MEDS ORDERED: NOREPINEPHRINE INJ 4MG/4ML 8 MG in DEXTROSE 5% 250ML 250 ML IV PRN (10:30)
[2018-07-10 10:44] LABS: ABG HCO3 29 mmol/L (23-28); ABG PCO2 37 mmHg (41-51); ABG PO2 59 mmHg (80-105)
[2018-07-10] MEDS: AZITHROMYCIN 500MG/NS 250 ML 250 ML IV SCH (13:30)
[2018-07-10] MEDS: LORAZEPAM 0.5 MG TAB PO PRN (14:07)
--- NOTE | 2018-07-10 18:12 | Progress Note ---
DATE: PULMONARY/CRITICAL CARE PROGRESS NOTE The patient was placed on a spontaneous breathing trial this morning. She was breathing about 16 times a minute with tidal volumes of 400-450 mL. Her subsequent blood gas was within normal limits. Norepinephrine has been weaned off. The patient is awake when sedation is stopped. OBJECTIVE VITALS: The blood pressure is 100/77, saturation is 100% on the pressure regulator volume control. The pulse is 84. HEENT: Shows on facial swelling or erythema. Nasal mucosa is normal. The oropharynx is normal. LYMPHATICS: Shows on submandibular, cervical or supraclavicular adenopathy. CARDIAC: Reveals a regular rate and rhythm with a normal S1 and S2. There are no murmurs or rubs. LUNGS: Auscultation of the lungs reveals clear breath sounds bilaterally. There is no wheezing. ABDOMEN: Soft and nontender. There is no rebound or guarding. EXTREMITIES: Shows no leg edema or calf tenderness. IMPRESSION 1. Mdijt-sp-gdalloa respiratory failure. 2. Leukocytosis of unclear significance that is improving. 3. Underlying chronic obstructive pulmonary disease. 4. Deep venous thrombosis. PLAN 1. Plan for extubation. 2. Continue Solu-Medrol 1 mg/kg twice daily. 3. Lasix times 1. 4. Swallowing evaluation after extubation. 5. Continue antibiotics until cultures are back. If cultures are negative, consider stopping antibiotics. Job#: [id number] [place]
[2018-07-10] MEDS: TEMAZEPAM 15 MG CAP PO PRN (21:04)
[2018-07-10] MEDS: ACETAMINOPHEN 325 MG TAB PO PRN (21:04)
[2018-07-11] VITALS (25 sets, daily range): BP systolic 102–151; BP diastolic 72–112
[2018-07-11] MEDS: VANCOMYCIN 1GM/NS 250 ML 250 ML IV SCH ×2 (03:36→15:24)
[2018-07-11] MEDS: LORAZEPAM 0.5 MG TAB PO PRN ×2 (03:37→18:04)
[2018-07-11 03:53] LABS: BASOPHILS # (AUTO) 0.1 (0.0-0.1); BASOPHILS % 0.3 % (0.0-1.0); HEMATOCRIT 29.8 % (34.2-44.1); HEMOGLOBIN 9.5 g/dL (12.0-16.0); LYMPHOCYTES # (AUTO) 2.1 (1.0-3.2); LYMPHOCYTES % 12.6 % (18.0-39.1); MEAN CORPUSCULAR HEMOGLOBIN 27.6 pg (28-32); MEAN CORPUSCULAR HGB CONC 31.9 g/dL (31-35); MEAN CORPUSCULAR VOLUME 86.6 fL (81-99); MONOCYTES # (AUTO) 0.7 (0.2-0.8); MONOCYTES % 4.5 % (4.4-11.3); NEUTROPHILS # (AUTO) 12.9 (2.1-6.9); NEUTROPHILS % 78.8 % (38.7-80.0); PLATELET COUNT 345 x10e3/uL (140-360); RED BLOOD COUNT 3.44 x10e6/uL (3.6-5.1); RED CELL DISTRIBUTION WIDTH 14.2 % (11.7-14.4)
[2018-07-11 04:10] LABS: ALANINE AMINOTRANSFERASE 22 IU/L (0-55); ALBUMIN 3.3 g/dL (3.5-5.0); ALBUMIN/GLOBULIN RATIO 1.3 (0.8-2.0); ALKALINE PHOSPHATASE 45 IU/L (40-150); ANION GAP 12.7 mmol/L (8-16); BLOOD UREA NITROGEN 17 mg/dL (7-26); BUN/CREATININE RATIO 29 (6-25); CALCIUM 8.7 mg/dL (8.4-10.2); CARBON DIOXIDE 28 mmol/L (22-29); CHLORIDE 107 mmol/L (98-107); CREATININE, SERUM 0.59 mg/dL (0.57-1.11); EST GLOMERULAR FILTRATION RATE > 60 ML/MIN (60-); GLUCOSE 119 mg/dL (74-118); POTASSIUM 3.7 mmol/L (3.5-5.1); SODIUM 144 mmol/L (136-145)
[2018-07-11] MEDS: LEVALBUTEROL HCL SOLN NEBU 1.25 MG/3 ML NEB INH SCH ×3 (04:45→11:08)
[2018-07-11] MEDS: IPRATROPIUM BROMIDE 0.02% 2.5 ML NEB NEB SCH ×7 (04:45→23:00)
[2018-07-11 05:43] LABS: INR 1.14; PROTHROMBIN TIME 13.7 seconds (11.9-14.5)
[2018-07-11 05:45] LABS: PARTIAL THROMBOPLASTIN TIME 94.6 seconds (23.8-35.5)
[2018-07-11] MEDS: MEROPENEM 1 GM VIAL IV SCH ×3 (06:27→21:16)
[2018-07-11] MEDS: METHYLPREDNISOLONE SOD SUCC 40 MG/ML VIAL IV SCH ×2 (08:02→21:16)
[2018-07-11] MEDS: SUCRALFATE 1 GM TAB PO SCH ×4 (08:02→21:16)
[2018-07-11] MEDS: DOCUSATE SODIUM 100 MG CAP PO SCH ×2 (08:02→16:20)
[2018-07-11] MEDS: PANTOPRAZOLE 40 MG 10ML VIAL IV SCH (08:02)
[2018-07-11] MEDS: GABAPENTIN 100 MG CAP PO SCH ×2 (08:03→16:21)
[2018-07-11] MEDS: METOPROLOL TARTRATE 50 MG TAB PO SCH ×2 (08:03→16:21)
[2018-07-11] MEDS ORDERED: HEPARIN 25,000U/0.45% NS 250ML 250 ML ONE (09:29)
[2018-07-11] MEDS: QUETIAPINE FUMARATE 25 MG TAB PO PRN ×2 (09:47→21:16)
[2018-07-11] MEDS: HEPARIN 25,000U/0.45% NS 250ML 1,200 UNIT in SODIUM CHLORIDE 0.9% 250ML 0 ML IV SCH (09:49)
--- NOTE | 2018-07-11 09:59 | Progress Note ---
DATE: PULMONARY CRITICAL CARE PROGRESS NOTE The patient was extubated yesterday. She still has some anxiety. She has some dyspnea, but no respiratory distress. She is on nasal cannula. She has abdominal distention, but no nausea or vomiting. PHYSICAL EXAMINATION VITALS: The blood pressure is 142/89, pulse 92, and the O2 saturation is 96%. HEENT: Shows no facial swelling or erythema. LYMPHATICS: Shows no submandibular, cervical or supraclavicular adenopathy. CARDIAC: Reveals a regular rate and rhythm with a normal S1 and S2. There are no murmurs or rubs. LUNGS: Auscultation of the lungs reveals clear breath sounds bilaterally. There is no wheezing. ABDOMEN: Soft and nontender. There is no rebound or guarding. EXTREMITIES: Shows no leg edema or calf tenderness. There is no cyanosis or clubbing. SKIN: Shows no rashes. IMPRESSION 1. Dkzqd-yx-zpsrbdp respiratory failure. 2. Chronic obstructive pulmonary disease. 3. Leukocytosis. 4. Abdominal distention. PLAN 1. Continue the methylprednisolone along with the bronchodilators. 2. ID has ordered a CT scan. 3. Avoid large doses of benzodiazepines or narcotics, because these medicines are likely to exacerbate her respiratory problems. 4. Seroquel as needed for anxiety. Job#: [id number] ALEX
[2018-07-11] MEDS: ACETAMINOPHEN 325 MG TAB PO PRN (11:56)
--- NOTE | 2018-07-11 12:23 | Diagnostic Imaging Report ---
EXAM: CT Abdomen and Pelvis WITH contrast INDICATION: \S\r/o infection \[id number] \S\1154 COMPARISON: CT dated 05/28/2018 TECHNIQUE: Abdomen and pelvis were scanned utilizing a multidetector helical scanner from the lung base to the pubic symphysis after administration of IV contrast. Coronal and sagittal reformations were obtained. Routine protocol was performed. Scan was performed when during portal venous phase. IV CONTRAST: 100 mL of Isovue-370 ORAL CONTRAST: Water COMPLICATIONS: None RADIATION DOSE: Total DLP: 472.96 mGy*cm Estimated effective dose: (DLP x 0.015 x size factor) mSv CTDIvol has been reviewed. It is below the limits set by the Radiation Protocol Committee (RPC). FINDINGS: LINES and TUBES: None. LOWER THORAX: Unchanged 5 mm right lower lobe nodule (series 2, image 6). HEPATOBILIARY: No focal hepatic lesions. Fat deposition along the falciform ligament. No biliary ductal dilation. GALLBLADDER: No radio-opaque stones or sludge. No wall thickening. SPLEEN: No splenomegaly. PANCREAS: No focal masses or ductal dilatation. ADRENALS: No adrenal nodules KIDNEYS/URETERS: Kidneys enhance symmetrically. No hydronephrosis. No renal mass. Bilateral subcentimeter hypodensities are too small to characterize. No stones. GI TRACT: No abnormal distention, wall thickening, or evidence of bowel obstruction. Collapsed ileum. Appendix is not visualized. PELVIC ORGANS/BLADDER: Collapsed by a Berg catheter in place. LYMPH NODES: No lymphadenopathy. VESSELS: There is mild atherosclerotic disease in the aorta and major arterial branches. PERITONEUM / RETROPERITONEUM: No free air or fluid. BONES: Unremarkable. SOFT TISSUES: Unremarkable. IMPRESSION: 1. No acute inflammatory process in the abdomen/pelvis Signed by: Dr. Escobar Ferrara MD on 07/11/2018 12:20 PM
[2018-07-11] MEDS ORDERED: IOPAMIDOL 370 MG/ML 200 ML INFUS..BTL INJ ONE (13:36)
[2018-07-11] MEDS ORDERED: SODIUM CHLORIDE 0.9% 50ML 50 ML ONE ×2 (13:36→16:42)
[2018-07-11] MEDS: AZITHROMYCIN 500MG/NS 250 ML 250 ML IV SCH (14:21)
[2018-07-11] MEDS: PROMETHAZINE 12.5MG/ NACL 0.9% 12.5 MG/50 ML BAG IV PRN ×2 (16:30→19:16)
[2018-07-11] MEDS: ALBUTEROL/IPRATROPIUM 3 ML NEB NEB SCH (23:30)
[2018-07-11] MEDS: TEMAZEPAM 15 MG CAP PO PRN (23:48)
[2018-07-12] VITALS: BP 158/83
[2018-07-12] MEDS: IPRATROPIUM BROMIDE 0.02% 2.5 ML NEB NEB SCH ×6 (03:00→23:00)
[2018-07-12] MEDS: VANCOMYCIN 1GM/NS 250 ML 250 ML IV SCH ×2 (03:07→17:17)
[2018-07-12] MEDS: ALBUTEROL/IPRATROPIUM 3 ML NEB NEB SCH ×6 (03:30→23:00)
[2018-07-12 04:00] VITALS: BP 125/63
[2018-07-12 05:35] LABS: BASOPHILS # (AUTO) 0.1 (0.0-0.1); BASOPHILS % 0.4 % (0.0-1.0); EOSINOPHILS % 0.1 % (0.0-6.0); HEMATOCRIT 29.7 % (34.2-44.1); HEMOGLOBIN 9.5 g/dL (12.0-16.0); LYMPHOCYTES # (AUTO) 2.4 (1.0-3.2); LYMPHOCYTES % 14.3 % (18.0-39.1); MEAN CORPUSCULAR HEMOGLOBIN 27.6 pg (28-32); MEAN CORPUSCULAR VOLUME 86.3 fL (81-99); MONOCYTES # (AUTO) 1.1 (0.2-0.8); MONOCYTES % 6.6 % (4.4-11.3); NEUTROPHILS # (AUTO) 12.4 (2.1-6.9); NEUTROPHILS % 74.3 % (38.7-80.0); PLATELET COUNT 329 x10e3/uL (140-360); RED BLOOD COUNT 3.44 x10e6/uL (3.6-5.1); RED CELL DISTRIBUTION WIDTH 14.2 % (11.7-14.4)
[2018-07-12] MEDS: LORAZEPAM 0.5 MG TAB PO PRN (05:46)
[2018-07-12] MEDS: MEROPENEM 1 GM VIAL IV SCH ×3 (05:46→22:28)
[2018-07-12 06:09] LABS: ALANINE AMINOTRANSFERASE 19 IU/L (0-55); ALBUMIN 3.2 g/dL (3.5-5.0); ALBUMIN/GLOBULIN RATIO 1.3 (0.8-2.0); ALKALINE PHOSPHATASE 41 IU/L (40-150); ANION GAP 13.8 mmol/L (8-16); BLOOD UREA NITROGEN 18 mg/dL (7-26); BUN/CREATININE RATIO 32 (6-25); CALCIUM 8.9 mg/dL (8.4-10.2); CARBON DIOXIDE 28 mmol/L (22-29); CHLORIDE 106 mmol/L (98-107); CREATININE, SERUM 0.56 mg/dL (0.57-1.11); EST GLOMERULAR FILTRATION RATE > 60 ML/MIN (60-); GLUCOSE 108 mg/dL (74-118); POTASSIUM 3.8 mmol/L (3.5-5.1); SODIUM 144 mmol/L (136-145)
[2018-07-12] MEDS ORDERED: MINERAL OIL 132 ML BTL PR NR (06:45)
[2018-07-12 07:43] VITALS: BP 135/62
[2018-07-12] MEDS: SUCRALFATE 1 GM TAB PO SCH ×4 (07:50→20:23)
[2018-07-12] MEDS: GABAPENTIN 100 MG CAP PO SCH ×2 (08:05→17:10)
[2018-07-12] MEDS: PANTOPRAZOLE 40 MG 10ML VIAL IV SCH (08:05)
[2018-07-12] MEDS: DOCUSATE SODIUM 100 MG CAP PO SCH ×2 (08:05→17:10)
[2018-07-12] MEDS: METOPROLOL TARTRATE 50 MG TAB PO SCH ×2 (08:05→17:10)
[2018-07-12] MEDS: METHYLPREDNISOLONE SOD SUCC 40 MG/ML VIAL IV SCH ×2 (08:05→20:18)
[2018-07-12] MEDS: HYDROCODONE/APAP 10MG-325MG TAB PO PRN (08:21)
--- NOTE | 2018-07-12 09:32 | Progress Note ---
DATE: July 12, 2018 The patient seen and examined today. Patient appears comfortable, still short of breath at rest. EXAMINATION GENERAL: Alert, awake, communicative. HEENT: Normocephalic, atraumatic. Sclerae pink. Conjunctivae clear. NECK: Supple. CHEST: Decreased sounds at bases. CARDIOVASCULAR: Regular rate and rhythm. ABDOMEN: Soft. EXTREMITIES: No edema. LABS AND IMAGING: Reviewed. ASSESSMENT AND PLAN 1. Patient with history of multiple medical conditions include severe chronic obstructive pulmonary disease, recent history of pulmonary embolism. 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 Required intubation. On steroid and bronchodilator. At current, continue current care. 2. Pulmonary embolism: Patient was on Xarelto, then switched to heparin. Recommendation: To restart patient on Xarelto. 3. Mild anemia, hemoglobin stable. Recommendation: Close observation. We will continue remaining care. We will follow patient closely. Job#: [id number]
[2018-07-12] MEDS ORDERED: CITRATE OF MAGNESIA 300ML BOTTLE PO NR (10:30)
[2018-07-12] MEDS: RIVAROXABAN 15 MG TABLET PO SCH ×2 (13:23→17:10)
[2018-07-12] MEDS: AZITHROMYCIN 500MG/NS 250 ML 250 ML IV SCH (14:15)
[2018-07-12 16:40] VITALS: BP 152/70
[2018-07-12] MEDS: SERTRALINE HCL 50 MG TAB PO SCH (17:17)
[2018-07-12 20:00] VITALS: BP 141/70
[2018-07-12] MEDS: QUETIAPINE FUMARATE 25 MG TAB PO PRN (20:18)
[2018-07-12] MEDS ORDERED: LORAZEPAM 0.5 MG TAB PO PRN (22:00)
[2018-07-13] VITALS: BP 136/70
[2018-07-13] MEDS: HYDROCODONE/APAP 10MG-325MG TAB PO PRN (02:24)
[2018-07-13] MEDS: IPRATROPIUM BROMIDE 0.02% 2.5 ML NEB NEB SCH (03:00)
[2018-07-13] MEDS: ALBUTEROL/IPRATROPIUM 3 ML NEB NEB SCH ×3 (03:00→06:54)
[2018-07-13 03:43] LABS: BASOPHILS % 0.2 % (0.0-1.0); EOSINOPHILS % 0.1 % (0.0-6.0); HEMATOCRIT 29.5 % (34.2-44.1); HEMOGLOBIN 9.3 g/dL (12.0-16.0); LYMPHOCYTES # (AUTO) 2.3 (1.0-3.2); LYMPHOCYTES % 13.2 % (18.0-39.1); MEAN CORPUSCULAR HEMOGLOBIN 27.7 pg (28-32); MEAN CORPUSCULAR HGB CONC 31.5 g/dL (31-35); MEAN CORPUSCULAR VOLUME 87.8 fL (81-99); MONOCYTES # (AUTO) 1.2 (0.2-0.8); MONOCYTES % 7.1 % (4.4-11.3); NEUTROPHILS # (AUTO) 12.9 (2.1-6.9); NEUTROPHILS % 75.4 % (38.7-80.0); PLATELET COUNT 308 x10e3/uL (140-360); RED BLOOD COUNT 3.36 x10e6/uL (3.6-5.1)
[2018-07-13] MEDS: VANCOMYCIN 1GM/NS 250 ML 250 ML IV SCH (03:50)
[2018-07-13 03:59] LABS: ANION GAP 10.9 mmol/L (8-16); BLOOD UREA NITROGEN 21 mg/dL (7-26); BUN/CREATININE RATIO 38 (6-25); CALCIUM 8.9 mg/dL (8.4-10.2); CARBON DIOXIDE 31 mmol/L (22-29); CHLORIDE 102 mmol/L (98-107); CREATININE, SERUM 0.55 mg/dL (0.57-1.11); EST GLOMERULAR FILTRATION RATE > 60 ML/MIN (60-); GLUCOSE 112 mg/dL (74-118); MAGNESIUM 2.2 MG/DL (1.3-2.1); POTASSIUM 3.9 mmol/L (3.5-5.1); SODIUM 140 mmol/L (136-145)
[2018-07-13 04:00] VITALS: BP 143/72
[2018-07-13] MEDS: MEROPENEM 1 GM VIAL IV SCH (06:16)
[2018-07-13 06:43] LABS: HYPOCHROMASIA SLIGHT; LYMPHOCYTES % (MANUAL) 12 % (19-48); MONOCYTES % (MANUAL) 7 % (3.4-9.0); NEUTROPHILS % (MANUAL) 81 % (40-74); PLATELET ESTIMATE ADEQUATE
[2018-07-13 06:44] LABS: ANISOCYTOSIS SLIGHT; ELLIPTOCYTE, RBC SLIGHT; PLATELET MORPHOLOGY COMMENT NORMAL; RBC MORPHOLOGY COMMENT NORMAL
[2018-07-13] MEDS ORDERED: SEROQUEL25 MG PO (06:59)
[2018-07-13] MEDS ORDERED: ZOLOFT50 MG PO (06:59)
[2018-07-13] MEDS ORDERED: NORCO 10-325 T1 EACH PO (07:01)
--- NOTE | 2018-07-13 07:15 | Consultation ---
DATE OF CONSULTATION: July 12, 2018 PSYCHIATRIC CONSULTATION REASON FOR CONSULTATION: Evaluate the patient's mood. HISTORY OF PRESENT ILLNESS: The patient is a 57-year-old female admitted to the hospital for COPD exacerbation. Psychiatric consultation was called to evaluate the patient's mood. As per medical record, the patient has a history of hypertension, emphysema, DVT, COPD, GERD, depression, and anxiety. Upon evaluation today, the patient was found to be in her room. She is alert, awake and oriented to situation. She denies depression, and admits to having anxiety because of her medical issues and shortness of breath. She denies feeling helpless or hopeless. She denies any suicidal or homicidal ideation. She reports poor sleep. She denies any appetite problems. Upon review of her medical history, the patient has been seen by us in the past for similar issues. She has a history of depression, anxiety and has been on psychotropic medications in the past. PAST PSYCHIATRIC HISTORY: The patient denies past psychiatric history although she has a history of depression and anxiety. She denies past suicide attempts. She denies alcohol or drug use. FAMILY HISTORY: Denies. SOCIAL HISTORY: The patient states she lives with her . MENTAL STATUS EXAMINATION GENERAL: The patient is an elderly female. She is alert, awake and oriented to situation. Her mood is anxious with appropriate affect. Psychomotor state is passive. She denies any suicide or homicidal ideations. She denies any hallucinations. Thought process is concrete. No delusion or paranoia elicited. Insight and judgment are fair. MEDICATIONS: , Naropin, , albuterol/ipratropium, acetaminophen/hydrocodone, methylprednisolone, pantoprazole, metoprolol, Neurontin 100 mg p.o. 2 times a day, docusate sodium, 0.5 mg q.12 h. p.r.n., vancomycin, temazepam 15 mg at bedtime p.r.n., Seroquel 25 mg 3 times a day p.r.n., erythromycin, acetaminophen, ipratropium bromide, magnesium citrate, Mineral Oil, sodium chloride. CURRENT LABS: WBC of 16.7, RBC 12.44, hemoglobin 9.5, hematocrit 29.7, and platelets 329,000. Sodium is 144, potassium 3.8, chloride 106, CO2 28, BUN 13.8, creatinine is 3.56, AST 20, ALT 19. ASSESSMENT: Major depressive disorder, recurrent; anxiety disorder. PLAN: Increase to 0.5 mg p.o. q.8 h. p.r.n. Continue with Neurontin 100 mg 2 times a day. Continue with 15 mg p.o. at bedtime p.r.n. Continue Seroquel p.r.n. p.o. Add Zoloft 50 mg p.o. daily. Monitor for mood. Supportive therapy. Thank you for this consultation. DICTATED BY LIANNA HAQ Job#: [id number] RI
[2018-07-13 08:26] VITALS: BP 157/70
[2018-07-13] MEDS: PANTOPRAZOLE 40 MG 10ML VIAL IV SCH (08:31)
[2018-07-13] MEDS: GABAPENTIN 100 MG CAP PO SCH (08:31)
[2018-07-13] MEDS: SERTRALINE HCL 50 MG TAB PO SCH (08:31)
[2018-07-13] MEDS: METHYLPREDNISOLONE SOD SUCC 40 MG/ML VIAL IV SCH (08:31)
[2018-07-13] MEDS: DOCUSATE SODIUM 100 MG CAP PO SCH (08:31)
[2018-07-13] MEDS: SUCRALFATE 1 GM TAB PO SCH (08:31)
[2018-07-13] MEDS: RIVAROXABAN 15 MG TABLET PO SCH (08:31)
[2018-07-13] MEDS: METOPROLOL TARTRATE 50 MG TAB PO SCH (08:32)
[2018-07-13 09:24] VITALS: BP 157/70
--- NOTE | 2018-07-13 09:41 | Progress Note ---
DATE: July 13, 2018 Patient seen and examined today. Patient appears better. Clinical condition is improving. Normal UA noted. EXAMINATION GENERAL: Alert, awake, communicative. HEENT: Normocephalic, atraumatic. Sclerae pink. Conjunctivae clear. NECK: Supple. CHEST: Decreased breath sounds at bases. CARDIOVASCULAR: Regular rate and rhythm. ABDOMEN: Soft. EXTREMITIES: No edema. LABS AND IMAGING: Reviewed. ASSESSMENT AND PLAN 1. Patient has history of multiple medical conditions. I am currently following for pulmonary embolism. Patient started on Xarelto and tolerating it well. 2. Anemia. Hemoglobin is low but stable. Clinically doing better. RECOMMENDATION: Continue current care. Patient is scheduled for discharge. We will follow the patient as an outpatient. Job#: [id number]
--- NOTE | 2018-07-13 18:50 | Discharge Summary ---
ADMISSION DIAGNOSES 1. Acute exacerbation of chronic obstructive pulmonary disease. 2. Hypertension. 3. Gastroesophageal reflux disease. 4. Arthritis. 5. Anxiety. DISCHARGE DIAGNOSES 1. Acute exacerbation of chronic obstructive pulmonary disease. 2. Hypertension. 3. Gastroesophageal reflux disease. 4. Arthritis. 5. Anxiety. 6. Right upper extremity deep venous thrombosis. 7. Respiratory distress. HISTORY: The patient has a history of hypertension, emphysema, DVT, COPD, GERD, arthritis and anxiety. Surgical history of breast biopsy, lumpectomy and appendectomy. On admission, the patient was started on IV steroids, nebs, oxygen, Mucinex and IV antibiotics. Her IV steroids were weaned pretty quickly as the wheezing was very minimal. The patient said she was hanging out with her sister, who is a very heavy smoker, when her symptoms started. The patient was ready for discharge a few days later, but then her right arm started to swell where she had a PICC line placed. We then did a venous Doppler that showed it was positive for DVT, and so hematology was consulted who placed the patient on Xarelto. The PICC line was then pulled and placed in the left upper extremity. An hour after discharge order was written, and the patient went into respiratory distress. CTA of the chest was done to rule out PE, and it was negative. The patient was subsequently intubated and placed in ICU. She was extubated and recovered quite quickly. After talking about the situation, she says that maybe she had a panic attack because her lungs were very clear, and she was breathing well, but she felt like she could not catch her breath, and so psychiatry was consulted. The patient was placed on Seroquel and sertraline per psychiatry. The patient is once again feeling well and ready to go home. She will be discharged with Zoloft, Xarelto, Seroquel, prednisone p.o. tapered, and [place]. She has had enough IV antibiotics in the hospital and so she will not continue with p.o. antibiotics. She will follow up with psychiatry and oncology as discussed as well as primary care physician in 2 weeks. The patient understands discharge instructions and agrees to plan. She is feeling much better and ready to go home. Per pulmonology, the patient was discharged with pulmonary rehab. Case management will set up. Dictated by: Gina Talley NP MACIE WOLF MD Job#: [id number] GH
[2018-07-14] MEDS ORDERED: PANTOPRAZOLE SOD 40 MG TABEC PO SCH (07:30)
--- NOTE | 2018-07-19 12:26 | History and Physical ---
CHIEF COMPLAINT: Shortness of breath. HPI: A 57-year-old female presents with several days of worsening shortness of breath and cough after being stuck in a car with her sister who is a heavy smoker. REVIEW OF SYSTEMS: Patient denies fever, chills, weight loss, sore throat, sinus congestion. No chest pain or palpitations. Shortness of breath and cough. She denies abdominal pain, nausea, vomiting, diarrhea. No dysuria or flank pain. No joint pain or swelling. No bleeding or bruising. No headache, vertigo, or loss of consciousness. She denies homicidal or suicidal ideation. She does have a history of anxiety and depression. PAST MEDICAL HISTORY: Patient has a history of hypertension, emphysema, DVT, COPD, GERD, arthritis, and anxiety. SURGICAL HISTORY: Breast biopsy, lumpectomy, and appendectomy. CURRENT MEDICATIONS: Per MAR. PHYSICAL EXAMINATION GENERAL: Patient is alert and oriented x3, in no apparent distress. VITAL SIGNS: Per medical record. HEENT: Atraumatic. Extraocular movements intact. Moist mucous membranes. Nares without erythema or discharge. NECK: Supple. CARDIOVASCULAR: Regular rate and rhythm without murmur. No bruits or peripheral edema. Bilateral pedal pulses equal and strong. RESPIRATORY: Patient has diminished breath sounds over the lower lobes with very minimal wheezing. GI: Abdomen is soft, nontender. Patient is obese. SKIN: Warm, dry, and intact. MUSCULOSKELETAL: Joints are normal alignment without erythema or swelling. No calf tenderness. NEUROLOGIC: Patient is alert and oriented. Exam is nonfocal. LABORATORY AND IMAGING DATA: Labs and images reviewed. ASSESSMENT AND PLAN 1. Acute exacerbation of chronic obstructive pulmonary disease. Patient will be started on IV antibiotics, IV steroids, nebs, oxygen, and Mucinex. 2. Hypertension. Patient will resume her home medications. 3. Anemia, will be monitored. On admission, patient's hemoglobin is 10.6. 4. For gastroesophageal reflux disease, she will be started on Protonix. 5. Neuropathy. Patient will take gabapentin. 6. For insomnia, patient will resume Restoril at home dose. 7. Patient's urinalysis on admission is negative. 8. For congestive heart failure, patient will resume Lasix at home dose. Dictated by: Gina Talley NP Job#: [id number] [employer]
== END 2018-07-13 10:05 | disposition home or self-care (01) | DRG 208 ==
LOC: ER 10:18 → ERHOLD 16:10 → IMCU 16:28 → OBSVTOIN 07-06 10:01 → MED/SURG 07-07 16:49 → ICU 07-09 10:18 → MED/SURG 07-11 15:38
PROVIDERS: ADMIT Internal Medicine; ATTEND Internal Medicine
PROC: 02HV33Z Insertion of Infusion Device into Superior Vena Cava, Percutaneous Approach (ICD-10-PCS; principal; 2018-07-05)
PROC: 02HV33Z Insertion of Infusion Device into Superior Vena Cava, Percutaneous Approach (ICD-10-PCS; 2018-07-08)
PROC: 5A1935Z Respiratory Ventilation, Less than 24 Consecutive Hours (ICD-10-PCS; 2018-07-09)
PROC: 0BH17EZ Insertion of Endotracheal Airway into Trachea, Via Natural or Artificial Opening (ICD-10-PCS; 2018-07-09)
DX: J44.1 Chronic obstructive pulmonary disease with (acute) exacerbation (principal); A41.9 Sepsis, unspecified organism; I26.99 Other pulmonary embolism without acute cor pulmonale; J96.22 Acute and chronic respiratory failure with hypercapnia; F33.9 Major depressive disorder, recurrent, unspecified; I82.621 Acute embolism and thrombosis of deep veins of right upper extremity; K21.9 Gastro-esophageal reflux disease without esophagitis; G62.9 Polyneuropathy, unspecified; G47.00 Insomnia, unspecified; F41.9 Anxiety disorder, unspecified; Z86.718 Personal history of other venous thrombosis and embolism; Z79.01 Long term (current) use of anticoagulants; Z99.81 Dependence on supplemental oxygen; Z77.22 Contact with and (suspected) exposure to environmental tobacco smoke (acute) (chronic); I11.0 Hypertensive heart disease with heart failure; I50.9 Heart failure, unspecified; D72.829 Elevated white blood cell count, unspecified; K59.00 Constipation, unspecified; E87.6 Hypokalemia; D64.9 Anemia, unspecified
CPT/HCPCS: 36415; 36569; 36600; 71045; 71260; 74018; 74177; 80048; 80053; 80202; 81001; 82150; 82550; 82553; 82805; 83605; 83690; 83735; 83880; 84484; 85025; 85610; 85730; 87040; 87086; 93005; 93971; 94002; 94003; 94640; 94660; 94760; 99284; G0378; J0330; J0360; J0456; J1170; J1644; J1650; J1940; J1956; J2185; J2550; J2920; J2930; J2997; J3370; J3480; J7030; Q9967